=== PATIENT | male | born 1945 | race Caucasian/White ===

== ENCOUNTER → 2016-09-05 | Outpatient (REF) | payer BC ==
[~2016-09-05] MED LIST: AMLO5CAP PO; ASPI325T PO; ASPI81TA85 PO; BUSP10TA PO; CRES40TA PO; HYDR12.55 PO; LOPR50TA PO; NITR4TASL SL; PRAV40TA2 PO; TOPR50TA PO; TRAN4TAB4 PO; TYLE325T5 PO; VITA-112 PO; VITA500C10 PO; XANA0.25 PO; XANA0.5T PO; XARE20TA PO
== END | disposition home or self-care (01) ==
LOC: M SFHCPLAZ 17:18
PROVIDERS: ATTEND Dermatology
DX: C44.529 Squamous cell carcinoma of skin of other part of trunk (principal)

== ENCOUNTER → 2017-02-04 | Outpatient (REF) | payer BC ==
[~2017-02-04] MED LIST changes: -TRAN4TAB4 PO; +TRAN4TAB8 PO
== END ==
LOC: M LAB REF 12:43
PROVIDERS: ATTEND Dermatology
DX: L85.9 Epidermal thickening, unspecified (principal)

== ENCOUNTER → 2017-06-05 | Outpatient (REF) | payer BC | LOC: M LAB REF 17:46 | PROVIDERS: ATTEND Internal Medicine | DX: Z11.59 Encounter for screening for other viral diseases (principal) ==

== ENCOUNTER → 2017-12-17 | Outpatient (REF) | payer BC | LOC: M LAB REF 12-18 12:10 | DX: D36.11 Benign neoplasm of peripheral nerves and autonomic nervous system of face, head, and neck (principal) | CPT/HCPCS: 88305 ==

== ENCOUNTER → 2019-05-05 | Outpatient (REF) | payer BC ==
[~2019-05-05] MED LIST changes: +ASPI-1 PO; -ASPI325T PO; +TRAN1TAB49 PO; -TRAN4TAB8 PO
== END ==
LOC: M SFHCPLAZ 19:00
PROVIDERS: ATTEND Dermatology
DX: D49.2 Neoplasm of unspecified behavior of bone, soft tissue, and skin (principal)

== ENCOUNTER → 2019-07-23 | Outpatient (CLI) | payer BC ==
--- NOTE | 2019-07-27 19:11 | SLEEPHOME ---
DATE OF PROCEDURE: 07/23/2019 ORDERED BY: Dr. Middleton Diagnostic home sleep testing was performed due to concern for the obstructive sleep apnea syndrome in this patient with a history of snoring. For testing a nocturnal T3 respiratory monitoring device was used. Continuous record was made of pulse, oxygen saturation, airflow, chest, abdominal strain and body position. 11 hours and 59 minutes of data were reviewed. There were 6 hours and 6 minutes marked as time in bed. During the interval marked time in bed, there were 111 respiratory events identified of 10 seconds in duration or greater for a respiratory event index of 18.1. Events were obstructive in nature. Baseline pulse rate 77 beats per minute, pulse rate ranged 56-97. Baseline saturation 90%. Saturations fell to as low as 83% and testing was performed in both the supine and nonsupine positions. IMPRESSION: Abnormal home sleep testing with repetitive respiratory events and oxygen desaturations to 83% with a respiratory event index of 18.1 is consistent with the obstructive sleep apnea syndrome. RECOMMENDATION: The patient should be encouraged to undergo a formal sleep evaluation.
== END ==
LOC: M SLEEP HO 10:07
PROVIDERS: ATTEND Internal Medicine Cardiovascular Disease
DX: R06.83 Snoring (principal)

== ENCOUNTER → 2019-08-25 | Outpatient (CLI) | payer BC ==
--- NOTE | 2019-08-27 16:11 | SLEEPCENT ---
DATE OF PROCEDURE: 08/25/2019 ORDERED BY: MIMI Fuentes Nocturnal polysomnography was performed for titration of pressure therapy in this patient with obstructive sleep apnea syndrome based on clinical evaluation confirmed by home testing revealing respiratory event index of 18.1. For testing the patient was fit with a ResMed Quattro Mirage mask of medium size; 4 cm of water pressure were applied to the circuit and the lights were extinguished. 6 hours and 4 minutes of data were reviewed. There were 221 minutes of sleep identified. Sleep latency was normal at 31 minutes. Rapid eye movement (REM) latency was short of 85.5 minutes. Sleep architecture was good with 2 REM cycles. Overall sleep efficiency was 61.6%. The electrocardiogram showed atrial fibrillation with a controlled ventricular response rate of 60 beats per minute. Electroencephalogram (EEG) showed reasonably normal waveforms for awake and sleep. Respiratory events were fully palliated CPAP at a pressure of +12 and remaining measures of sleep physiology were normal. IMPRESSION: Obstructive sleep apnea syndrome (G47.33). RECOMMENDATIONS: Nightly use of pressure therapy 12 cm of water.
== END ==
LOC: M SLEEP 19:26
PROVIDERS: ATTEND Nurse Practitioner Family
DX: G47.33 Obstructive sleep apnea (adult) (pediatric) (principal)

== ENCOUNTER → 2019-09-16 | Outpatient (CLI) | payer BC ==
--- NOTE | 2019-09-20 23:54 | SLEEPCENT ---
DATE OF PROCEDURE: 09/16/2019 ORDERED BY: MIMI Fuentes Nocturnal polysomnography was performed for assessment of sleep physiology. 6 hours and 27 minutes of data were reviewed. There were 291.5 minutes of sleep identified. Sleep latency was normal at 20.5 minutes. Rapid eye movement (REM) latency was short at 52 minutes. Sleep architecture showed severe fragmentation. Overall sleep efficiency was good at 76.3%. There were four REM cycles noted. EKG showed atrial fibrillation with a controlled ventricular response rate of 85 beats per minute. Rate ranged 70-100. EEG showed reasonably normal waveforms for awake and sleep. There were 116 respiratory events identified of 10 seconds in duration or greater for an apnea-hypopnea index of 23.9. The events were obstructive, not exclusive to sleep stage nor body posture. Arousals from respiratory events occurred 14 times per hour. Oxygen desaturations were seen into the 80s. There was also some activity noted in the limb EMG leads, only one train of 30 events and limb movement arousal index was 5.6. IMPRESSION: Moderate to severe obstructive sleep apnea syndrome (G47.33). Apnea-hypopnea index 23.9. RECOMMENDATIONS: The patient should be encouraged to return to the sleep disorder center for pressure therapy. In the interim alcohol and sedative avoidance should be practiced and caution exercised during the operation of motor vehicles.
== END ==
LOC: M SLEEP 19:31
PROVIDERS: ATTEND Nurse Practitioner Family
DX: G47.33 Obstructive sleep apnea (adult) (pediatric) (principal)

== ENCOUNTER → 2019-11-05 | Outpatient (REF) | payer BC | LOC: M LAB REF 17:16 | PROVIDERS: ATTEND Dermatology | DX: L92.9 Granulomatous disorder of the skin and subcutaneous tissue, unspecified (principal) ==

== ENCOUNTER → 2020-03-04 | Outpatient (CLI) | payer BC ==
[2020-03-04 10:13] LABS: HEMATOCRIT 44.1 % (42.0-52.0); HEMOGLOBIN 14.5 g/dl (13.5-17.5); MEAN CORPUSCULAR HEMOGLOBIN 31.5 pg (27.0-33.0); MEAN CORPUSCULAR HGB CONC 32.9 g/dl (32.0-36.5); MEAN CORPUSCULAR VOLUME 95.9 fl (80.0-96.0); PLATELET COUNT, AUTOMATED 277 10^3/uL (150-450); WHITE BLOOD COUNT 11.4 10^3/uL (4.0-10.0)
[2020-03-04 10:52] LABS: BLOOD UREA NITROGEN 15 MG/DL (7-18); CALCIUM LEVEL 8.6 MG/DL (8.8-10.2); CARBON DIOXIDE LEVEL 29 MEQ/L (21-32); CHLORIDE LEVEL 109 MEQ/L (98-107); CREATININE FOR GFR 1.12 MG/DL (0.70-1.30); GLOMERULAR FILTRATION RATE > 60.0 (>42); GLUCOSE, FASTING 83 MG/DL (70-100); POTASSIUM SERUM 4.2 MEQ/L (3.5-5.1); SODIUM LEVEL 142 MEQ/L (136-145)
== END ==
LOC: M LAB 09:38
PROVIDERS: ATTEND Nurse Practitioner Family
DX: I48.91 Unspecified atrial fibrillation (principal)

== ENCOUNTER → 2020-03-05 | Outpatient (CLI) | payer BC | LOC: M LABSMTC 10:55 | PROVIDERS: ATTEND Nurse Practitioner Family | DX: Z11.59 Encounter for screening for other viral diseases (principal); Z20.828 Contact with and (suspected) exposure to other viral communicable diseases | CPT/HCPCS: C9803; U0003 ==

== ENCOUNTER → 2020-04-18 | Outpatient (CLI) | payer BC | LOC: M LABSMTC 09:27 | PROVIDERS: ATTEND Anesthesiology | DX: Z11.59 Encounter for screening for other viral diseases (principal) ==

== ENCOUNTER 2020-04-20 14:22 | Day surgery (SDC) | payer BC ==
[~2020-04-20] VITALS: Ht 180.3 cm; Wt 92.1 kg
[~2020-04-20 14:22] MED LIST changes: +LR 1,000 ML IV ONE
[2020-04-20] MEDS ORDERED: MIDAZOLAM INJ 2MG/2ML VIAL (J2250 PER 1MG) As Ordered ONE (15:39)
[2020-04-20] MEDS ORDERED: propofoL 200 MG/20 ML VIAL As Ordered ONE (15:40)
[2020-04-20] MEDS ORDERED: fentaNYL 100 MCG/2 ML INJECTION (J3010) As Ordered ONE (15:40)
[2020-04-20] MEDS ORDERED: CETACAINE SPRAY 5GM As Ordered ONE (15:44)
[2020-04-20] MEDS ORDERED: LIDOCAINE VISCOUS 2% SOLN 15ML UDC As Ordered ONE (15:44)
[2020-04-20 17:15] VITALS: BP 121/65
--- NOTE | 2020-04-26 21:03 | T-ECHO ---
DATE OF PROCEDURE: 04/20/2020 PREPROCEDURE DIAGNOSIS: 45-day post Watchman transesophageal echocardiogram (OZZY). POSTPROCEDURE DIAGNOSIS: 45-day post Watchman transesophageal echocardiogram (OZZY). FINDINGS: 45-day post Watchman OZZY. See conclusions below for additional findings. PROCEDURE PERFORMED: Transesophageal echocardiogram. PROCEDURE PERFORMED BY: Alden Middleton M.D. DATA SYSTEMS ANALYST: None. IV SEDATION: Propofol IV per SUPERVISOR REMELT. COMPLICATIONS: None. DESCRIPTION OF PROCEDURE: Rhythm appeared to be atrial fibrillation. Patient received Cetacaine spray to the back of the pharynx. Following adequate amounts of Propofol intravenous (IV) administered by the SUPERVISOR REMELT, esophageal intubation was accomplished by Dr. Middleton without difficulty using a High three- dimensional transesophageal echocardiogram probe. The left atrium appeared to be enlarged. The atrial septum was intact anatomically and by color flow Doppler. Some small amounts of type 1 spontaneous echo contrast were seen in the left atrium. A Watchman left atrial closure device was well-seated in the left atrial appendage with no visible gap. No thrombus seen on the Watchman device. The left ventricle appeared normal in size and systolic function and without regional wall motion abnormalities. Normal LV systolic function. LVEF 65% by visual estimate. Aortic valve was 3-cuspid with moderate focal thickening and focal calcific deposits especially along the free margins. No fusion of the aortic cusps. No aortic stenosis or regurgitation. Mitral leaflets appeared normal. No mitral valve prolapse. No frail segments. Mild-moderate mitral valve regurgitation was present. Mild tricuspid valve regurgitation was present. Structurally normal appearing tricuspid leaflets. Pulmonic valve appeared normal. Very mild pulmonic regurgitation. No pericardial effusion. Right ventricle appeared normal in size and systolic function. Transgastric views were moderately technically difficult. Distal aortic arch and descending thoracic aorta showed mostly mild atherosclerosis with some regions of patchy moderate atheroma. CONCLUSIONS: 1. Satisfactory placement of a Watchman left atrial appendage closure device without visible gap and without thrombus. 2. No atrial septal defect. 3. Normal left ventricle size and systolic function. Left ventricular ejection fraction (LVEF) by visual estimate. 4. Normal appearing mitral leaflets with mild-moderate mitral regurgitation. 5. Moderate aortic valve sclerosis without stenosis or regurgitation of a 3- cuspid aortic valve. 6. Areas of up to moderate atheroma patchy throughout the distal aortic arch and descending thoracic aorta with mostly mild atherosclerosis. MTDD
== END 2020-04-20 17:45 | disposition home or self-care (01) ==
LOC: M SDC 14:22
PROVIDERS: ATTEND Internal Medicine Cardiovascular Disease
DX: I48.19 Other persistent atrial fibrillation (principal); F41.0 Panic disorder [episodic paroxysmal anxiety]; Z79.82 Long term (current) use of aspirin; Z79.899 Other long term (current) drug therapy; I25.2 Old myocardial infarction; G47.33 Obstructive sleep apnea (adult) (pediatric); Z87.891 Personal history of nicotine dependence; I10 Essential (primary) hypertension; E78.5 Hyperlipidemia, unspecified; Z79.01 Long term (current) use of anticoagulants; N40.0 Benign prostatic hyperplasia without lower urinary tract symptoms
CPT/HCPCS: 93312; 93320; 93325; J2250; J3010

== ENCOUNTER → 2020-06-14 | Outpatient (CLI) | payer BC ==
[~2020-06-14] MED LIST changes: -LR 1,000 ML IV ONE
--- NOTE | 2020-06-15 12:59 | REP ---
INDICATION: FOLLOW UP PULMONARY NODULE COMPARISON: 08/04/2013 TECHNIQUE: Axial noncontrast images from the thoracic inlet to the upper abdomen with coronal and sagittal reformations. This CT examination was performed using the following dose reduction techniques: Automated exposure control, adjustment of mA and/or kv according to the patient's size, and use of iterative reconstruction technique. FINDINGS: The lung hussein are well aerated and demonstrate moderate emphysematous changes with scattered bullae as well as moderate amounts of scattered subpleural fibrosis along with mild bronchiectasis. Few scattered nodules identified on prior examination remain stable. A noncalcified nodule in the left lower lobe measuring roughly 7 mm appears to be increased from prior examinations and may warrant further investigation. No further new consolidation or suspicious nodule/mass identified. No pleural effusion. No pneumothorax. Mediastinum demonstrates atherosclerotic changes to the thoracic aorta and coronary arteries without evidence for mitral valve repair. Mediastinal and hilar adenopathy cannot be excluded. No cardiomegaly or pericardial effusion noted. Surrounding musculoskeletal structures are intact. Limited upper abdomen demonstrates normal bilateral adrenal glands. IMPRESSION: 1. Nonacute findings as described above including emphysematous changes, subpleural fibrosis, and bronchiectasis. 2. A 7 mm noncalcified nodule in the left lower lobe appears to be slightly increased when compared with prior examinations. Consider 6 month follow-up and/or PET-CT. <Electronically signed by Magdy Jarvis > 06/15/20 [id number]
== END ==
LOC: M RAD 16:14
PROVIDERS: ATTEND Internal Medicine
DX: R91.1 Solitary pulmonary nodule (principal)

== ENCOUNTER → 2020-12-22 | Outpatient (CLI) | payer MEDICARE ==
[~2020-12-22] MED LIST changes: -TRAN1TAB49 PO; +TRAN1TAB56 PO
--- NOTE | 2020-12-22 08:25 | REP ---
INDICATION: PULMONARY NODULE. COMPARISON: Comparison is made with multiple prior chest CT studies the most recent of which is from 14 June 2020. The most remote available chest CT is 03 April 2010.. TECHNIQUE: Helical scanning is acquired. 3 mm axial images are generated. Coronal and sagittal MPR and coronal MIP images are generated. FINDINGS: There is a 7 mm noncalcified nodule in the left lower lobe which is very gradually increased in size over the scanning interval. By my measurement, it was 7 mm in May of 2020 and has not changed in that short interval. However, it measured 5 mm in 2012 and 4 mm in 2009.a there are multiple other subcentimeter noncalcified pulmonary nodules present bilaterally which are unchanged over the interval dating back to 2009.aaaaaaaaaaa. There is some subpleural emphysematous change and interstitial fibrosis in the upper lobes bilaterally which has developed since the 2009 study but which is unchanged from most recent prior study. There is no evidence of pleural effusion. No new mass or infiltrate is seen. Vascular calcification is observed. Again noted is a left atrial appendage occlusion device. No new or enlarged mediastinal lymph node.0 no bony destructive lesion is seen.9 the visualized upper abdominal structures are unremarkable. IMPRESSION: 7 mm noncalcified left lower lobe nodule very gradually enlarged when compared with prior studies dating back to 2009. Unchanged from the most recent prior study of June 14, 2020 by my measurement. There are multiple other stable noncalcified pulmonary nodules. Follow-up CT study suggested in 6-9 months. <Electronically signed by Lopez Hanley > 12/22/20 [id number]
== END ==
LOC: M RAD 07:10
PROVIDERS: ATTEND Internal Medicine
DX: R91.1 Solitary pulmonary nodule (principal)

== ENCOUNTER 2021-01-26 08:01 | Emergency (ER) | payer MEDICARE ==
[~2021-01-26] VITALS: Ht 180.3 cm; Wt 88.9 kg
[2021-01-26 08:02] VITALS: BP 153/83
[2021-01-26] MEDS ORDERED: PENI500T (08:13)
[2021-01-26] MEDS ORDERED: LOSA25TA14 (08:13)
[2021-01-26] MEDS ORDERED: ASPI-161 PO (08:13)
[2021-01-26] MEDS ORDERED: INDA125TA PO (08:13)
[2021-01-26] MEDS ORDERED: TAMS1CAP17 (08:13)
[2021-01-26] MEDS ORDERED: COLC1CAP (08:13)
[2021-01-26] MEDS ORDERED: ALPR0.25 (08:13)
[2021-01-26 09:09] LABS: BASO % 0.1 % (0.0-1.0); EOS # 0.1 10^3/uL (0.0-0.5); EOS % 0.4 % (0.0-3.0); HEMOGLOBIN 14.7 g/dl (13.5-17.5); LYMPH # 2.5 10^3/uL (1.5-5.0); LYMPH % 16.9 % (24.0-44.0); MEAN CORPUSCULAR HEMOGLOBIN 31.4 pg (27.0-33.0); MEAN CORPUSCULAR HGB CONC 33.4 g/dl (32.0-36.5); MONO # 1.3 10^3/uL (0.0-0.8); MONO % 8.6 % (2.0-8.0); NEUTROPHILS # 10.6 10^3/uL (1.5-8.5); NEUTROPHILS % 73.3 % (36.0-66.0); PLATELET COUNT, AUTOMATED 243 10^3/uL (150-450); RED BLOOD COUNT 4.68 10^6/uL (4.30-6.10); WHITE BLOOD COUNT 14.5 10^3/uL (4.0-10.0)
[2021-01-26 09:38] LABS: ALBUMIN 3.6 GM/DL (3.2-5.2); ALT/SGPT 34 U/L (12-78); BILIRUBIN,DIRECT 0.3 MG/DL (0.0-0.2); BILIRUBIN,TOTAL 0.8 MG/DL (0.2-1.0); BLOOD UREA NITROGEN 11 MG/DL (7-18); CALCIUM LEVEL 8.7 MG/DL (8.8-10.2); CARBON DIOXIDE LEVEL 27 MEQ/L (21-32); CHLORIDE LEVEL 106 MEQ/L (98-107); CPK CREATINE PHOSPHOKINASE 131 U/L (39-308); CREATININE FOR GFR 0.93 MG/DL (0.70-1.30); GLOMERULAR FILTRATION RATE > 60.0 (>42); GLUCOSE, FASTING 102 MG/DL (70-100); LIPASE 74 U/L (73-393); MB/CK RELATIVE INDEX 3.82 (< OR =4); POTASSIUM SERUM 3.7 MEQ/L (3.5-5.1); SODIUM LEVEL 138 MEQ/L (136-145); TOTAL PROTEIN 6.8 GM/DL (6.4-8.2); TROPONIN I < 0.02 NG/ML (< 0.10)
[2021-01-26] MEDS ORDERED: ISOVUE-370 76% 100ML VIAL As Ordered ONE (09:39)
[2021-01-26] MEDS ORDERED: KETOROLAC 30 MG/ML 1ML VIAL IV ONE (09:55)
--- NOTE | 2021-01-26 10:05 | REP ---
INDICATION: LLQ pain. COMPARISON: None. TECHNIQUE: Standard helical technique after the intravenous administration of 100 cc Isovue 370. No oral bowel preparatory contrast was administered prior to the exam. FINDINGS: The lung bases are unchanged compared to the chest CT of 12/22/2020. There is fatty infiltration surrounding a segment of descending colon seen with multiple diverticula. There is a trace amount of free pelvic fluid. There is no free air. The liver, gallbladder, spleen, pancreas, adrenal glands, and left kidney are within normal limits. Seen in the right kidney there is a small round 1.5 cm sized low-density structure which has water density Hounsfield unit readings. The abdominal aorta and para-regions are within normal limits. There is no evidence of a mass or adenopathy. 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 Chronic changes are seen involving spine, hips, sacroiliac joints. IMPRESSION: 1. Descending colon diverticulitis. 2. Trace amount of free pelvic fluid. 3. Bosniak class 1 simple right renal cyst. 4. Other findings as described above. <Electronically signed by Guru High > 01/26/21 [id number]
[2021-01-26] MEDS ORDERED: metroNIDAZOLE 500 MG in IV 1 EA IV ONE (10:35)
[2021-01-26] MEDS ORDERED: CIPROFLOXACIN 400 MG in IV 1 EA IV ONE (11:00)
[2021-01-26] MEDS ORDERED: METR-265 PO (12:56)
[2021-01-26] MEDS ORDERED: KETO10TAB PO (12:56)
[2021-01-26] MEDS ORDERED: ONDA4TAB6 PO (12:56)
[2021-01-26] MEDS ORDERED: CIPR500T39 PO (12:56)
--- NOTE | 2021-01-26 19:51 | ECGEPIP ---
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
== END 2021-01-26 13:57 | disposition home or self-care (01) ==
LOC: M ED 08:01
DX: K57.32 Diverticulitis of large intestine without perforation or abscess without bleeding (principal); N28.1 Cyst of kidney, acquired; I48.91 Unspecified atrial fibrillation; I25.2 Old myocardial infarction; E78.5 Hyperlipidemia, unspecified; Z87.891 Personal history of nicotine dependence; Z79.899 Other long term (current) drug therapy
CPT/HCPCS: 74177; 80048; 80076; 81001; 82550; 82553; 83605; 83690; 84484; 85025; 93005; 93041; 96365; 96366; 96367; 96375; 99285; J0744; J1885; Q9967

== ENCOUNTER → 2021-04-08 | Outpatient (CLI) | payer MEDICARE ==
[~2021-04-08] MED LIST changes: +ALPR0.25; +ASPI-161 PO; +CIPR500T39 PO; +COLC1CAP; +INDA125TA PO; +KETO10TAB PO; +LOSA25TA14; +METR-265 PO; +ONDA4TAB6 PO; +PENI500T; +TAMS1CAP17
[2021-04-08 10:23] LABS: CHOLESTEROL RISK RATIO 1.75 (<5)
== END ==
LOC: M LAB 09:22
PROVIDERS: ATTEND Internal Medicine Cardiovascular Disease
DX: E78.00 Pure hypercholesterolemia, unspecified (principal)

== ENCOUNTER → 2021-05-11 | Outpatient (CLI) | payer MEDICARE ==
[~2021-05-11] MED LIST changes: -ALPR0.25; +ALPR0.25 PO; -COLC1CAP; +COLC1CAP PO; +D31000TA2 PO; -LOSA25TA14; +LOSA25TA14 PO; +POTA8TAB8 PO; -TAMS1CAP17; +TAMS1CAP17 PO; +VITA500C24 PO
== END ==
LOC: M LABSMTC 09:48
PROVIDERS: ATTEND Anesthesiology
DX: Z01.812 Encounter for preprocedural laboratory examination (principal); Z20.822 Contact with and (suspected) exposure to COVID-19
CPT/HCPCS: 17000; 17003; G0463; U0003

== ENCOUNTER 2021-05-15 12:23 | Day surgery (SDC) | payer MEDICARE ==
[~2021-05-15] VITALS: Ht 180.3 cm; Wt 85.7 kg
[~2021-05-15 12:23] MED LIST changes: +LIDOCAINE 1% MDV 20ML VIAL SQ PRN; +LR 1,000 ML IV ONE
[2021-05-15] MEDS ORDERED: MIDAZOLAM INJ 2MG/2ML VIAL (J2250 PER 1MG) As Ordered ONE (12:59)
[2021-05-15] MEDS ORDERED: fentaNYL 100 MCG/2 ML INJECTION (J3010) As Ordered ONE (12:59)
[2021-05-15] MEDS ORDERED: LIDOCAINE 2% 100MG/5ML SDV (FOR ANES.) As Ordered ONE (13:00)
[2021-05-15] MEDS ORDERED: propofoL 200 MG/20 ML VIAL As Ordered ONE (13:00)
[2021-05-15] MEDS ORDERED: CETACAINE SPRAY 5GM As Ordered ONE (14:15)
[2021-05-15] MEDS ORDERED: LIDOCAINE VISCOUS 2% SOLN 15ML UDC As Ordered ONE (14:15)
[2021-05-15 15:15] VITALS: BP 135/88
--- NOTE | 2021-05-15 17:17 | ECHO ---
ECHOCARDIOGRAM DATE OF PROCEDURE: 05/15/2021 PREPROCEDURE DIAGNOSIS: One year status post Watchman transesophageal echocardiogram (OZZY). POSTPROCEDURE DIAGNOSIS: One year status post Watchman transesophageal echocardiogram (OZZY). FINDINGS: One year status post Watchman transesophageal echocardiogram (OZZY). PROCEDURE PERFORMED: OZZY (transesophageal echocardiogram). PROCEDURE PERFORMED BY: Dr. Alden Middleton FLAKING ROLL OPERATOR: None. ANESTHESIA: Monitored anesthetic care (propofol) was administered by DIGITAL ENGINEER. COMPLICATIONS: None. Patient received topical anesthetic to the back of the pharynx. He received propofol intravenous (IV) as administered by the DIGITAL ENGINEER for IV sedation. Patient tolerated the procedure well without any immediate complications. Rhythm was atrial fibrillation. Esophageal intubation was accomplished without difficulty using a 3D transesophageal echocardiogram probe. This was performed by Dr. Middleton. The left ventricle appeared normal in size and systolic function without regional wall motion abnormalities. Normal left ventricular (LV) systolic function, left ventricular ejection fraction (LVEF) 60%-65% by visual estimate. Right ventricle appeared normal in size and systolic function. No masses or thrombi were seen in the right atrium. Right atrium appeared normal in size. The left atrium appeared enlarged. Atrial septum was intact anatomically and by color flow Doppler. A Watchman left atrial appendage closure device was present and well seated in the left atrial appendage and was without gaps or color flow, and no thrombus was seen on the Watchman device. Aortic valve was 3-cuspid and was structurally and functionally normal. Mitral leaflets appeared structurally normal. Mild mitral regurgitation was present and within physiologic limits. No tricuspid regurgitation. Pulmonic valve appeared normal. Mild pulmonic regurgitation was present. No pericardial effusion. Distal aortic arch and descending thoracic aorta showed mild atherosclerotic plaque. CONCLUSIONS: 1. Normal appearance, well seated Watchman left atrial appendage closure device in situ without thrombus. 2. Visual appearance of left atrial dilatation. 3. Normal left ventricle size and systolic function. LVEF 60%-65% 4. Mild atherosclerotic plaque/atheroma involving the distal aortic arch and descending thoracic aorta.
--- NOTE | 2021-05-16 07:12 | T-ECHO ---
DATE OF PROCEDURE: 05/15/2021 PREPROCEDURE DIAGNOSIS: One year status post Watchman transesophageal echocardiogram (OZZY). POSTPROCEDURE DIAGNOSIS: One year status post Watchman transesophageal echocardiogram (OZZY). FINDINGS: One year status post Watchman transesophageal echocardiogram (OZZY). PROCEDURE PERFORMED: OZZY (transesophageal echocardiogram). PROCEDURE PERFORMED BY: Dr. Alden Middleton TOOLROOM KEEPER: None. ANESTHESIA: Monitored anesthetic care (propofol) was administered by MATTRESS SPRING ENCASER. COMPLICATIONS: None. Patient received topical anesthetic to the back of the pharynx. He received propofol intravenous (IV) as administered by the MATTRESS SPRING ENCASER for IV sedation. Patient tolerated the procedure well without any immediate complications. Rhythm was atrial fibrillation. Esophageal intubation was accomplished without difficulty using a 3D transesophageal echocardiogram probe. This was performed by Dr. Middleton. The left ventricle appeared normal in size and systolic function without regional wall motion abnormalities. Normal left ventricular (LV) systolic function, left ventricular ejection fraction (LVEF) 60%-65% by visual estimate. Right ventricle appeared normal in size and systolic function. No masses or thrombi were seen in the right atrium. Right atrium appeared normal in size. The left atrium appeared enlarged. Atrial septum was intact anatomically and by color flow Doppler. A Watchman left atrial appendage closure device was present and well seated in the left atrial appendage and was without gaps or color flow, and no thrombus was seen on the Watchman device. Aortic valve was 3-cuspid and was structurally and functionally normal. Mitral leaflets appeared structurally normal. Mild mitral regurgitation was present and within physiologic limits. No tricuspid regurgitation. Pulmonic valve appeared normal. Mild pulmonic regurgitation was present. No pericardial effusion. Distal aortic arch and descending thoracic aorta showed mild atherosclerotic plaque. CONCLUSIONS: 1. Normal appearance, well seated Watchman left atrial appendage closure device in situ without thrombus. 2. Visual appearance of left atrial dilatation. 3. Normal left ventricle size and systolic function. LVEF 60%-65% 4. Mild atherosclerotic plaque/atheroma involving the distal aortic arch and descending thoracic aorta. [facility]
== END 2021-05-15 15:25 | disposition home or self-care (01) ==
LOC: M SDC 12:23
PROVIDERS: ATTEND Internal Medicine Cardiovascular Disease
DX: I48.19 Other persistent atrial fibrillation (principal); I25.118 Atherosclerotic heart disease of native coronary artery with other forms of angina pectoris; I49.3 Ventricular premature depolarization; I10 Essential (primary) hypertension; E78.5 Hyperlipidemia, unspecified; F41.9 Anxiety disorder, unspecified; G47.33 Obstructive sleep apnea (adult) (pediatric); Z79.899 Other long term (current) drug therapy; E66.3 Overweight
CPT/HCPCS: 93312; 93320; 93325; J3010

== ENCOUNTER → 2021-06-29 | Outpatient (CLI) | payer MEDICARE ==
[~2021-06-29] MED LIST changes: -LIDOCAINE 1% MDV 20ML VIAL SQ PRN; -LR 1,000 ML IV ONE
== END ==
LOC: M LABSMTC 11:18
PROVIDERS: ATTEND Anesthesiology
DX: Z01.812 Encounter for preprocedural laboratory examination (principal); Z20.822 Contact with and (suspected) exposure to COVID-19

== ENCOUNTER 2021-07-04 08:11 | Day surgery (SDC) | payer MEDICARE ==
[~2021-07-04] VITALS: Ht 182.9 cm; Wt 85.3 kg
[~2021-07-04 08:11] MED LIST changes: +NS 1,000 ML IV ONE
--- OUTSIDE RECORDS SUMMARY | 2021-07-04 08:19 | CCD | Continuity of Care Document ---
Author Author Leonard Leung MD Organization Unknown Address [address] [facility] [address] [place] [address] Phone [phone] Care Team Providers Care Conveyor Weigher Operator Name Role Phone Pramod Leung JR, MD AUTM Unavailable [facility] D[facility]at[facility] AUTM [phone] Problems Active Problems Provider Date Benign essential hypertension Pramod Leung MD Onset: 0 03/17/2011 Pure hypercholesterolemia Pramod Leung MD Onset: 03/17 Chronic lymphoid leukemia, disease Pramod Leung MD Ons et: 03/17/2011 Disorder of lung Pramod Leung MD Onset: 03/17/2011 Anxiety state Pramod Leung MD Onset: 03/17/2011 Essential hypertension Pramod Leung MD Onset: 10/23/19 16 Social History Type Date Description Comments Sex Unknown ETOH Use Consumes 1 beer per day Tobacco Use Start: Unknown End: Unknown Patient is a former smoker quit October 2010. Allergies and adverse reactions Description No Known Drug Allergies Medications Active Medications SIG Qnty Indications Ordering Provide r Date Colchicine 0.6mg Capsules 1 by mouth once a day 60asmita Leung MD 12/12/[address] 1 by mouth every day Pramod Leung MD 06/09/2020 Rosuvastatin Calcium 40mg Tablets take 1 tablet by mouth every day 90saroj Leung MD 03/02/2019 Tamsulosin HCL 0.4mg Capsules Take 1 Capsule By Mouth Every Day 1/2 Hour After The Same Meal 90asmita Leung MD 05/11/2018 Indapamide 1.25mg Tablets Take One Tablet By Mouth Every Day 90saroj Leung MD 017 Nitrostat 0.4mg Tablets Sub one under tongue every 5 minutes x 3 as needed for chest discomfort 25tabs Pramod Leung MD 04/15/2014 Nasonex 50mcg/Act Suspension 1 spray each nostril bid prn 1units Radhika Gonzalez, MIMI 06/10/2013 Vitamin D-1000 1000Unit Tablets 1 by mouth every day Pramod Leung MD 02/25/2011 Vitamin C Plus 500mg Tablets qd Pramod Leung MD 02/25/2011 Buspirone HCL 10mg Tablets take one tablet by mouth three times a day 270tabs Pramod Leung MD 10/18/2010 Xanax 0.25mg Tablets 1 tab four times a day as needed anxiety 120tabs Pramod Leung MD 03/1996 Losartan Potassium 25mg Tablets 1 by mouth every day Pramod Leung MD Potassium CL. ER. 8Meq 1 Tablet Per Day Unknow n Medications Administered in Office Medication SIG Qnty Indications Ordering Provider Date Covid-19 vaccine, Unspecified Inj ection Unknown 10/10/2020 Covid-19 vaccine, Unspecified Inj ection Unknown 09/12/2020 Immunization Adminstration,1 Vaccine/Tox oid Injection Pramod Leung MD 2018 Immunization Adminstration,1 Vaccine/Tox oid Injection Pramod Leung MD 2017 Immunizations CPT Code Status Date Vaccine Lot # [id number] Given 05/17/2021 Influenza,Unspecified [id number] Given 05/21/2019 Influenza Vaccin e Quadrivalent Preser/Antibiotic Free Im Use [id number] 18678 Given 08/09/2018 Shingrix [id number] Given 06/02/2018 Influenza Virus Vaccine, Quadrivalent ([id number]), Derived From 2 Given 06/05/2017 Influenza Vaccin e Quadrivalent Preser/Antibiotic Free Im Use [id number] 41006 Given 10/18/2014 Prevnar 13 [id number] [id number] Given 08/28/2012 Zoster Vaccine 75625 Given 04/17/2010 Pneumovax 23 Vital Signs Date Vital Result Comment 06/18/2021 8:25am BP Systolic 128 mmHg BP Diastolic 72 mmHg Heart Rate 82 /min Height 70 inches 5'10" Weight 196.00 lb O2 % BldC Oximetry 96 % RM Air BMI (Body Mass Index) 28.1 kg/m2 12/12/2020 8:11am BP Systolic 126 mmHg BP Diastolic 76 mmHg Heart Rate 68 /min Height 70 inches 5'10" Weight 204.00 lb BMI (Body Mass Index) 29.3 kg/m2 Results Test Acquired Date Facility Test Result H/L Range Note Complete Blood Count 2021 [facility] S[employer] Business Intelligence Consultant: Dr Pramod [place] [address] [phone] WBC 7.3 x10*3/UL 4.1 - 10.9 RBC 4.53 x10*6/UL 4.20 - 6.30 Hemoglobin 14.8 g/dL 12.0 - 18.0 Hematocrit 42.0 % 37.0 - 51.0 MCV 92.6 fL 80.0 - 97.0 MCH 32.7 pg High 26.0 - 32.0 MCHC 35.3 g/dL 31.0 - 38.0 RDW 13.7 % 11.6 - 13.7 PLT 233 x10*3/UL 140 - 440 MPV 7.5 FL Low 7.8 - 11.0 Lymph % 41.3 % 10.0 - 58.5 Mid % 8.7 % 1.7 - 9.3 Neut % 50.0 % 37.0 - 92.0 Lymph # 3.0 x10*3/UL 0.6 - 4.1 Mid # 0.7 x10*3/UL High 0.1 - 0.6 Neut # 3.6 x10*3/UL 2.0 - 7.8 Comprehensive Chem Profile 2021 [facility] [employer] Business Intelligence Consultant: Dr Pramod [place] [address] [phone] Glucose 104 mg/dL High 74 - 99 1 BUN 14 mg/dL 7 - 18 Creatinine 1.1 mg/dL 0.6 - 1.3 Sodium 139 mEq/L 136 - 145 Potassium 4.5 mEq/L 3.5 - 5.1 Chloride 106 mEq/L 98 - 107 Carbon Dioxide 30 mEq/L 21 - 32 Calcium 9.0 mg/dL 8.5 - 10.1 Alk. Phosphatase 86 mg/dL 46 - 116 Total Bilirubin 0.5 mg/dL 0.2 - 1.0 Ast (Sgot) 20 U/L 15 - 37 Alt (SGPT) 38 U/L 12 - 78 Albumin 3.5 g/dL 3.4 - 5.0 Total Protein 6.8 g/dL 6.4 - 8.2 A/G Ratio 1.06 CALC 1.00 - 1.90 GFR >= 60 mL/min >60 GFR >= 60 mL/min >60 2 Lipid Profile 2021 [facility] [employer] Business Intelligence Consultant: [place] [address] [phone] Cholesterol 114 mg/dL Low 131 - 200 Triglycerides 32 mg/dL 30 - 150 HDL Cholesterol 61 mg/dL High 35 - 60 LDL (Calculated) 47 CALC Low 50 - 159 Laboratory test finding 2021 [facility] [employer] Business Intelligence Consultant: Dr Pramod Leung [place], [place] [id number] [phone] PSA <pending> Lipid Panel 04/08/2021 [facility] nter [address] [place] [address] [phone] Triglycerides Level 39 mg/dL Normal <150 Cholesterol Level 119 mg/dL Normal <200 HDL Cholesterol 68 mg/dL Normal >40 LDL Cholesterol 43 mg/dL Normal <100 Non-HDL-C 51 mg/dL Normal Cholesterol Risk Ratio 1.750 Normal <5 CBC With Differential 01/26/2021 [facility] [address] [place] [address] [phone] White Blood Count 14.5 10 High 4.0-10.0 Red Blood Count 4.68 10 Normal 4.30-6.10 Hemoglobin 14.7 g/dL Normal 13.5-17.5 Hematocrit 44.0 % Normal 42.0-52.0 Mean Corpuscular Volume 94.0 fl Normal 80.0-96.0 Mean Corpuscular Hemoglobin 31.4 pg Normal 27.0-33.0 Mean Corpuscular HGB Conc 33.4 g/dL Normal 32.0-36.5 Red Cell Distribution Width 12.6 % Normal 11.5-14.5 Platelet Count, Automated 243 10 Normal 150-450 Neutrophils % 73.3 % High 36.0-66.0 Lymph % 16.9 % Low 24.0-44.0 Taney % 8.6 % High 2.0-8.0 Eos % 0.4 % Normal 0.0-3.0 Baso % 0.1 % Normal 0.0-1.0 Immature Granulocyte % 0.7 % Normal 0-3.0 Nucleated Red Blood Cell % 0.0 % Normal 0-0 Neutrophils # 10.6 10 High 1.5-8.5 Lymph # 2.5 10 Normal 1.5-5.0 Taney # 1.3 10 High 0.0-0.8 Eos # 0.1 10 Normal 0.0-0.5 Baso # 0.0 10 Normal 0.0-0.2 Ua W/ Reflex To Culture 01/26/[address] [address] [phone] Appearance, Urine RFX CLEAR Normal Clear Color, Urine RFX YELLOW Normal Yellow PH,Urine RFX 7.0 units Normal 5.0-9.0 Specific [place] Ur Auto RFX 1.005 Normal 1.002-1.035 Protein, Urine Auto RFX NEGATIVE mg/dL Normal Negative Glucose, Urine (Ua) Auto RFX NEGATIVE mg/dL Normal Negative Ketone, Urine Auto RFX NEGATIVE mg/dL Normal Negative Urobilinogen, Urine Auto RFX 0.2 mg/dL Normal 0.0-2.0 Bilirubin, Urine Auto RFX NEGATIVE Normal Negative Nitrite, Urine Auto RFX NEGATIVE Normal Negative Leukocyte Esterase Ur Auto RFX NEGATIVE Normal Negative Blood, Urine Blood RFX NEGATIVE Normal Negative WBC, Urine Auto RFX 1 /HPF Normal 0-3 RBC, Urine Auto RFX 2 /HPF Normal 0-3 Bacteria, Urine Auto RFX NEGATIVE Normal Negative Squam Epithelial Cell Ur Aurfx 0 /HPF Normal 0-6 Hyaline Cast, Urine Auto RFX 0 /LPF Normal 0-1 Laboratory test finding 01/26/[address] [address] [phone] Lactic Acid Sepsis Protocol 1.2 mmol/L Normal 0.4- 2.0 3 Cardiac Marker Panel 01/26/2021 [facility] enter [address] [place] [address] [phone] CPK Creatine Phosphokinase 131 U/L Normal 39-30 8 CK-MB Value Mass 5.0 NG/ML High <3.6 MB/CK Relative Index 3.82 Normal < Or =4 4 Troponin I < 0.02 NG/ML Normal < 0.10 5 Liver Profile 01/26/2021 [facility] nter [address] [place] [address] [phone] Ast/Sgot 18 U/L Normal 7-37 Alt/SGPT 34 U/L Normal 12-78 Alkaline Phosphatase 97 U/L Normal 45-117 Bilirubin,Total 0.8 mg/dL Normal 0.2-1.0 Bilirubin,Direct 0.3 mg/dL High 0.0-0.2 Total Protein 6.8 GM/DL Normal 6.4-8.2 Albumin 3.6 GM/DL Normal 3.2-5.2 Albumin/Globulin Ratio 1.1 Normal Basic Metabolic Profile 01/26/2021 [facility] [address] [place] [address] [phone] Glucose, Fasting 102 mg/dL High 70-100 Blood Urea Nitrogen 11 mg/dL Normal 7-18 Creatinine For GFR 0.93 mg/dL Normal 0.70-1.30 Glomerular Filtration Rate > 60.0 Normal >42 6 Sodium Level 138 mEq/L Normal 136-145 Potassium Serum 3.7 mEq/L Normal 3.5-5.1 Chloride Level 106 mEq/L Normal 98-107 Carbon Dioxide Level 27 mEq/L Normal 21-32 Anion Gap 5 mEq/L Low 8-16 Calcium Level 8.7 mg/dL Low 8.8-10.2 Laboratory test finding 01/26/2021 [facility] [address] [place] [address] [phone] Lipase 74 U/L Normal 73-393 1 100-125 mg/dL PRE-DIABET ES/FASTING >126 mg/dL DIABETES/FASTING 2 CHRONIC KIDNEY DISEASE STAGI NG PER NKF STAGE I & II GFR >= 60 NORMAL TO MILDLY DECREASED STAGE III GFR 30-59 MODERATELY DECREASED STAGE IV GFR 15-29 SEVERELY DECREASED STAGE V GFR <15 VERY LITTLE GFR LEFT ESRD GFR <15 ON MEDICAL CODING INSTRUCTOR 3 Y/N query for Sepsis Lactate Rule: Y 4 DIAGNOSIS CRITERIA MMB ng/ml Relative Index (RI) NON-AMI < or = 5 N/A CHILDS ZONE > 5 < or = 4 AMI > 5 > 4 5 Troponin I Reference Interva l for Future Fleet LOCI: 99th Percentile= 0.00-0.045 ng/ml Risk Stratification: <= 0.10 ng/ml Decreased Risk for Adverse Clinical Events. 0.10-1.50 ng/ml Increased Risk for Adv erse Clinical Events. Evaluation of additional criterion and/or repeat testing in 2-6 hours is suggested to rule out myocardial damage. >= 1.50 ng/ml Indicative of Myocardial Injury. 6 Units are mL/min/1.73 m2 Chronic Kidney Disease Staging per NKF: Stage I & II GFR >=60 Normal to Mildly Decreased Stage III GFR 30-59 Moderately Decreased Stage IV GFR 15-29 Severely Decreased Stage V GFR <15 Very Little GFR Left ESRD GFR <15 on MEDICAL CODING INSTRUCTOR Procedures Date Code Description Status 02/14/2016 [id number] Colonoscopy Completed 09/13/2005 [id number] Colonoscopy Completed Medical Devices Description No Information Available Encounters Description No Information Available Assessments Description No Information Available Plan of Treatment No Information Available Functional Status Description No Information Available Mental Status Description No Information Available Referrals Description No Information Available
--- OUTSIDE RECORDS SUMMARY | 2021-07-04 08:19 | CCD | Continuity of Care Document ---
Author Author Lab Schedule, Leonard Melgar Organization Unknown Address [address] [place] [id number] Phone Unavailable Care Team Providers Care Microsoft Solutions Architect Name Role Phone Pramod Leung JR, MD AUTM Unavailable [facility] Dermatology AUTM [phone] Problems Active Problems Provider Date Benign essential [...] Day 1/2 Hour After The Same Meal purvi Leung MD 05/11/2018 Indapamide 1.25mg Tablets Take One Tablet By Mouth Every Day 90tazeynep Leung MD 017 Nitrostat 0.4mg Tablets Sub [...] CPT Code Status Date Vaccine Lot # [id number] Given 06/18/2021 Pneumovax 23 [id number] U-Flu Given 05/17/2021 Influenza,Unspecified 77986 Given 05/21/2019 Influenza Vaccin e Quadrivalent Preser/Antibiotic Free Im Use [id number] 88601 Given 08/09/2018 Shingrix 73935 Given 06/02/2018 Influenza Virus Vaccine, Quadrivalent (Cciiv4), Derived From 7 Given 06/05/2017 Influenza Vaccin e Quadrivalent Preser/Antibiotic Free Im Use [id number] 82550 Given 10/18/2014 Prevnar 13 [id number] 03691 Given 08/28/2012 Zoster Vaccine 45919 Given 04/17/2010 Pneumovax 23 Vital Signs Date [...] H/L Range Note Complete Blood Count 2021 [facility] Insurance Auditor: [place] [address] [phone] WBC 7.3 x10*3/UL 4.1 - 10.9 RBC [...] 2.0 - 7.8 Comprehensive Chem Profile 2021 [facility] Insurance Auditor: [place] [address] [phone] Glucose 104 mg/dL High 74 - 99 [...] 60 mL/min >60 2 Lipid Profile 2021 [facility] Insurance Auditor: [place] [address] [phone] Cholesterol 114 mg/dL Low 131 - 200 Triglycerides 32 mg/dL 30 - 150 HDL Cholesterol 61 mg/dL High 35 - 60 LDL (Calculated) 47 CALC Low 50 - 159 Laboratory test finding 2021 [facility] Insurance Auditor: Dr Pramod Leung [place] [id number] [phone] PSA 0.83 ng/mL <4.00 3 Lipid Panel 04/08/2021 [facility] nter [address] [place] [address] [phone] Triglycerides Level 39 mg/dL Normal <150 Cholesterol Level 119 mg/dL Normal <200 HDL Cholesterol 68 mg/dL Normal >40 LDL Cholesterol 43 mg/dL Normal <100 Non-HDL-C 51 mg/dL Normal Cholesterol Risk Ratio 1.750 Normal <5 CBC With Differential 01/26/2021 [facility] [address] [place] [address] [phone] White Blood Count 14.5 10 High 4.0-10.0 [...] 36.0-66.0 Lymph % 16.9 % Low 24.0-44.0 [place] % 8.6 % High 2.0-8.0 Eos % 0.4 % Normal 0.0-3.0 Baso % 0.1 % Normal 0.0-1.0 Immature Granulocyte % 0.7 % Normal 0-3.0 Nucleated Red Blood Cell % 0.0 % Normal 0-0 Neutrophils # 10.6 10 High 1.5-8.5 Lymph # 2.5 10 Normal 1.5-5.0 Kern # 1.3 10 High 0.0-0.8 Eos # 0.1 10 Normal 0.0-0.5 Baso # 0.0 10 Normal 0.0-0.2 Ua W/ Reflex To Culture 01/26/[address] [address] [phone] Appearance, Urine RFX CLEAR Normal Clear Color, Urine RFX YELLOW Normal Yellow PH,Urine RFX 7.0 units Normal 5.0-9.0 Specific [employer] Ur Auto RFX 1.005 Normal 1.002-1.035 Protein, [...] /LPF Normal 0-1 Laboratory test finding 01/26/[address] [address] [phone] Lactic Acid Sepsis Protocol 1.2 mmol/L Normal 0.4- 2.0 4 Cardiac Marker Panel 01/26/2021 [facility] C enter [address] [place] [address] [phone] CPK Creatine Phosphokinase 131 U/L Normal 39-30 8 CK-MB Value Mass 5.0 NG/ML High <3.6 MB/CK Relative Index 3.82 Normal < Or =4 5 Troponin I < 0.02 NG/ML Normal < 0.10 6 Liver Profile 01/26/2021 [facility] nter [address] [place] [address] [phone] Ast/Sgot 18 U/L Normal 7-37 Alt/SGPT 34 U/L Normal 12-78 Alkaline Phosphatase 97 U/L Normal 45-117 Bilirubin,Total 0.8 mg/dL Normal 0.2-1.0 Bilirubin,Direct 0.3 mg/dL High 0.0-0.2 Total Protein 6.8 GM/DL Normal 6.4-8.2 Albumin 3.6 GM/DL Normal 3.2-5.2 Albumin/Globulin Ratio 1.1 Normal Basic Metabolic Profile 01/26/[address] [address] [phone] Glucose, Fasting 102 mg/dL High 70-100 Blood Urea Nitrogen 11 mg/dL Normal 7-18 Creatinine For GFR 0.93 mg/dL Normal 0.70-1.30 Glomerular Filtration Rate > 60.0 Normal >42 7 Sodium Level 138 mEq/L Normal 136-145 Potassium Serum 3.7 mEq/L Normal 3.5-5.1 Chloride Level 106 mEq/L Normal 98-107 Carbon Dioxide Level 27 mEq/L Normal 21-32 Anion Gap 5 mEq/L Low 8-16 Calcium Level 8.7 mg/dL Low 8.8-10.2 Laboratory test finding 01/26/[address] [address] [phone] Lipase 74 U/L Normal 73-393 1 100-125 mg/dL PRE-DIABET ES/FASTING >126 mg/dL DIABETES/FASTING 2 CHRONIC KIDNEY DISEASE STAGI NG PER NKF STAGE I & II GFR >= 60 NORMAL TO MILDLY DECREASED STAGE III GFR 30-59 MODERATELY DECREASED STAGE IV GFR 15-29 SEVERELY DECREASED STAGE V GFR <15 VERY LITTLE GFR LEFT ESRD GFR <15 ON UPHOLSTERY REPAIRER 3 This assay was performed on the Siemens Dimension EXL using the B- Galactosidase/CPRG methodology and should not be compared interchangeably with other methods. The PSA should not be used alone as a screening test for the presence or absence of malignant disease. 4 Y/N query for Sepsis Lactate Rule: Y 5 DIAGNOSIS CRITERIA MMB ng/ml Relative Index (RI) NON-AMI < or = 5 N/A CHILDS ZONE > 5 < or = 4 AMI > 5 > 4 6 Troponin I Reference Interva l for Siemens [place] LOCI: 99th Percentile= 0.00-0.045 ng/ml Risk Stratification: <= 0.10 ng/ml Decreased Risk for Adverse Clinical Events. 0.10-1.50 ng/ml Increased Risk for Adv erse Clinical Events. Evaluation of additional criterion and/or repeat testing in 2-6 hours is suggested to rule out myocardial damage. >= 1.50 ng/ml Indicative of Myocardial Injury. 7 Units are mL/min/1.73 m2 Chronic Kidney Disease Staging per NKF: Stage I & II GFR >=60 Normal to Mildly Decreased Stage III GFR 30-59 Moderately Decreased Stage IV GFR 15-29 Severely Decreased Stage V GFR <15 Very Little GFR Left ESRD GFR <15 on UPHOLSTERY REPAIRER Procedures Date Code Description Status 02/14/2016 [id number] Colonoscopy Completed 09/13/2005 [id number] Colonoscopy Completed Medical Devices Description No Information Available Encounters Description No Information Available Assessments Date Code Description Provider 06/18/2021 I10 Essential (primary) hypertension Pramod Leung MD 06/18/2021 E78.00 Pure hypercholesterolemia, unspe cified Pramod Leung MD 06/18/2021 I48.20 Chronic atrial fibrillation, uns pecified Pramod Leung MD 06/18/2021 R73.09 Other abnormal glucose Pramod Leung MD 06/18/2021 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 Pramod Leung MD 06/18/2021 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 Pramod Leung MD 06/18/2021 G47.33 Obstructive sleep apnea (adult) (pediatric) Pramod Leung MD 06/18/2021 R91.1 Solitary pulmonary nodule Hi s Roxana Leung MD 2021 I10 Essential (primary) hypertension Pramod Leung MD 2021 I10 Essential (primary) hypertension Lab Schedule 2021 R73.09 Other abnormal glucose Pramod Leung MD 2021 R73.09 Other abnormal glucose Lab Sched ule 2021 Z12.5 Encounter for screening for susie gnant neoplasm of prostate Pramod Leung MD 2021 Z12.5 Encounter for screening for susie gnant neoplasm of prostate Lab Schedule 2021 E78.00 Pure hypercholesterolemia, unspe cified Pramod Leung MD 2021 E78.00 Pure hypercholesterolemia, unspe cified Lab Schedule Plan of Treatment Future Appointment(s):* 12/24/2021 8:10 am - Lab Schedule at [facility] * 12/25/2021 8:20 am - Pramod Leung MD at [facility] 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
--- OUTSIDE RECORDS SUMMARY | 2021-07-04 08:19 | CCD | Continuity of Care Document ---
Author Author Leonard Leung MD Organization Unknown Address [address] [facility] [address] [place] [address] Phone [phone] Care Team Providers Care Printing Press Operator Name Role Phone Pramod Leung JR, MD AUTM Unavailable [facility] AUTM [phone] Problems Active Problems Provider Date Benign essential [...] CPT Code Status Date Vaccine Lot # [id number] Given 06/18/2021 Pneumovax 23 [id number] U-Flu Given 05/17/2021 Influenza,Unspecified 21846 Given 05/21/2019 Influenza Vaccin e Quadrivalent Preser/Antibiotic Free Im Use [id number] 32016 Given 08/09/2018 Shingrix 78468 Given 06/02/2018 Influenza Virus Vaccine, Quadrivalent ([id number]), Derived From 9 Given 06/05/2017 Influenza Vaccin e Quadrivalent Preser/Antibiotic Free Im Use [id number] 86459 Given 10/18/2014 Prevnar 13 [id number] 11453 Given 08/28/2012 Zoster Vaccine 21648 Given 04/17/2010 Pneumovax 23 Vital Signs Date [...] Date Facility Test Result H/L Range Note Coronavirus 2019 Nasopharygeal 06/29/2021 [facility] [address] [place] [address] [phone] Coronavirus 2019 Nasopharygeal ASSAY INFORMATIO <SEE N OTE> 1 Complete Blood Count 2021 [facility] rashmi nunez Porcelain Enamel Laborer: [place] [address] [phone] WBC 7.3 x10*3/UL 4.1 - 10.9 RBC [...] 2.0 - 7.8 Comprehensive Chem Profile 2021 [facility] rashmi Aguilar Porcelain Enamel Laborer: [place] [address] [phone] Glucose 104 mg/dL High 74 - 99 2 BUN 14 mg/dL 7 - 18 Creatinine [...] mL/min >60 GFR >= 60 mL/min >60 3 Lipid Profile 2021 [facility] Porcelain Enamel Laborer: [place] [address] [phone] Cholesterol 114 mg/dL Low 131 - 200 Triglycerides 32 mg/dL 30 - 150 HDL Cholesterol 61 mg/dL High 35 - 60 LDL (Calculated) 47 CALC Low 50 - 159 Laboratory test finding 2021 [facility] [employer] [facility] Porcelain Enamel Laborer: Dr Pramod Leung [place] [id number] [phone] PSA 0.83 ng/mL <4.00 4 Lipid Panel 04/08/2021 [facility] nter [address] [place] [id number] [phone] Triglycerides Level 39 mg/dL Normal <150 Cholesterol Level 119 mg/dL Normal <200 HDL Cholesterol 68 mg/dL Normal >40 LDL Cholesterol 43 mg/dL Normal <100 Non-HDL-C 51 mg/dL Normal Cholesterol Risk Ratio 1.750 Normal <5 CBC With Differential 01/26/2021 [facility] [address] [place] [address] [phone] White Blood Count 14.5 10 High 4.0-10.0 [...] 36.0-66.0 Lymph % 16.9 % Low 24.0-44.0 [place] % 8.6 % High 2.0-8.0 Eos % 0.4 % Normal 0.0-3.0 Baso % 0.1 % Normal 0.0-1.0 Immature Granulocyte % 0.7 % Normal 0-3.0 Nucleated Red Blood Cell % 0.0 % Normal 0-0 Neutrophils # 10.6 10 High 1.5-8.5 Lymph # 2.5 10 Normal 1.5-5.0 [place] # 1.3 10 High 0.0-0.8 Eos # 0.1 10 Normal 0.0-0.5 Baso # 0.0 10 Normal 0.0-0.2 Ua W/ Reflex To Culture 01/26/2021 [place] [id number] [phone] Appearance, Urine RFX CLEAR Normal Clear Color, Urine RFX YELLOW Normal Yellow PH,Urine RFX 7.0 units Normal 5.0-9.0 Specific [place] Ur Auto RFX 1.005 Normal 1.002-1.035 Protein, [...] /LPF Normal 0-1 Laboratory test finding 01/26/[address] [address] [phone] Lactic Acid Sepsis Protocol 1.2 mmol/L Normal 0.4- 2.0 5 Cardiac Marker Panel 01/26/2021 [facility] enter [address] [place] [address] [phone] CPK Creatine Phosphokinase 131 U/L Normal 39-30 8 CK-MB Value Mass 5.0 NG/ML High <3.6 MB/CK Relative Index 3.82 Normal < Or =4 6 Troponin I < 0.02 NG/ML Normal < 0.10 7 Liver Profile 01/26/2021 [facility] nter [address] [place] [address] [phone] Ast/Sgot 18 U/L Normal 7-37 Alt/SGPT 34 U/L Normal 12-78 Alkaline Phosphatase 97 U/L Normal 45-117 Bilirubin,Total 0.8 mg/dL Normal 0.2-1.0 Bilirubin,Direct 0.3 mg/dL High 0.0-0.2 Total Protein 6.8 GM/DL Normal 6.4-8.2 Albumin 3.6 GM/DL Normal 3.2-5.2 Albumin/Globulin Ratio 1.1 Normal Basic Metabolic Profile 01/26/[address] [address] [phone] Glucose, Fasting 102 mg/dL High 70-100 Blood Urea Nitrogen 11 mg/dL Normal 7-18 Creatinine For GFR 0.93 mg/dL Normal 0.70-1.30 Glomerular Filtration Rate > 60.0 Normal >42 8 Sodium Level 138 mEq/L Normal 136-145 Potassium Serum 3.7 mEq/L Normal 3.5-5.1 Chloride Level 106 mEq/L Normal 98-107 Carbon Dioxide Level 27 mEq/L Normal 21-32 Anion Gap 5 mEq/L Low 8-16 Calcium Level 8.7 mg/dL Low 8.8-10.2 Laboratory test finding 01/26/[address] [address] [phone] Lipase 74 U/L Normal 73-393 1 ASSAY INFORMATION: Real Time RT-PCR NOTE: The COVID-19 assay has been cleared by the U.S. Food and Drug Administration under the Emergency Use Authorization (EUA). [employer] and [employer] are designated as high complexity laboratories by the Clinical Laboratory Improvement Amendments of 1988(CLIA) and are qualified to perform this test. Not Detected 2 100-125 mg/dL PRE-DIABET ES/FASTING >126 mg/dL DIABETES/FASTING 3 CHRONIC KIDNEY DISEASE STAGI NG PER NKF STAGE I & II GFR >= 60 NORMAL TO MILDLY DECREASED STAGE III GFR 30-59 MODERATELY DECREASED STAGE IV GFR 15-29 SEVERELY DECREASED STAGE V GFR <15 VERY LITTLE GFR LEFT ESRD GFR <15 ON NURSES AIDE 4 This assay was performed on the Simple Admit Dimension EXL using the B- Galactosidase/CPRG methodology and should not be compared interchangeably with other methods. The PSA should not be used alone as a screening test for the presence or absence of malignant disease. 5 Y/N query for Sepsis Lactate Rule: Y 6 DIAGNOSIS CRITERIA MMB ng/ml Relative Index (RI) NON-AMI < or = 5 N/A CHILDS ZONE > 5 < or = 4 AMI > 5 > 4 7 Troponin I Reference Interva l for Siemens Pepin LOCI: 99th Percentile= 0.00-0.045 ng/ml Risk Stratification: <= 0.10 ng/ml Decreased Risk for Adverse Clinical Events. 0.10-1.50 ng/ml Increased Risk for Adv erse Clinical Events. Evaluation of additional criterion and/or repeat testing in 2-6 hours is suggested to rule out myocardial damage. >= 1.50 ng/ml Indicative of Myocardial Injury. 8 Units are mL/min/1.73 m2 Chronic Kidney Disease Staging per NKF: Stage I & II GFR >=60 Normal to Mildly Decreased Stage III GFR 30-59 Moderately Decreased Stage IV GFR 15-29 Severely Decreased Stage V GFR <15 Very Little GFR Left ESRD GFR <15 on NURSES AIDE Procedures Date Code Description Status 06/18/2021 93761 Office/Outpatient Established Mo d MDM 30-39 Min Completed 02/14/2016 [id number] Colonoscopy Completed 09/13/2005 [id number] Colonoscopy Completed Medical Devices Description No Information Available Encounters Type Date Location Provider Dx Diagnosis Office Visit 06/18/2021 8:40a [facility] 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 G47.33 Obstructive sleep apnea (miguel lt) (pediatric) R91.1 Solitary pulmonary nodule Z23 Encounter for immunization Assessments Date Code Description Provider 06/18/2021 I10 Essential (primary) hypertension Pramod Leung MD 06/18/2021 E78.00 Pure hypercholesterolemia, unspe cified Pramod Leung MD 06/18/2021 I48.20 Chronic atrial fibrillation, uns pecified Pramod Leung MD 06/18/2021 R73.09 Other abnormal glucose Pramod Leung MD 06/18/2021 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 * 12/25/2021 8:20 am - Pramod Leung MD at [facility] 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
--- OUTSIDE RECORDS SUMMARY | 2021-07-04 08:19 | CCD | Continuity of Care Document ---
Author Author Lab Schedule, Leonard eMlgar Organization Unknown Address [address] [place] [address] Phone Unavailable Care Team Providers Care Corn Sheller Operator Name Role Phone Pramod Leung JR, MD AUTM Unavailable [facility] AUTM [phone] Problems Active Problems Provider Date Benign essential [...] By Mouth Every Day 90saroj Leung MD 03/10/2 017 Nitrostat 0.4mg Tablets Sub one under tongue every 5 minutes x 3 as needed for chest discomfort 25tabs Pramod Leung MD 04/15/2014 Nasonex 50mcg/Act Suspension 1 spray each nostril bid prn 1units Radhika Gonzalez, AIRPLANE FUELER 06/10/2013 Vitamin D-1000 1000Unit Tablets 1 by [...] Vaccine Lot # U-Flu Given 05/17/2021 Influenza,Unspecified 04349 Given 05/21/2019 Influenza Vaccin e Quadrivalent Preser/Antibiotic Free Im Use 089903 20242 Given 08/09/2018 Shingrix 13665 Given 06/02/2018 Influenza Virus Vaccine, Quadrivalent (Cciiv4), Derived From 6 Given 06/05/2017 Influenza Vaccin e Quadrivalent Preser/Antibiotic Free Im Use 618751 08091 Given 10/18/2014 Prevnar 13 [id number] 74147 Given 08/28/2012 Zoster Vaccine 23619 Given 04/17/2010 Pneumovax 23 Vital Signs Date [...] H/L Range Note Complete Blood Count 2021 [facility] [employer] [facility] [place] Cutting Machine Operator: [place] [address] [phone] WBC 7.3 x10*3/UL 4.1 - 10.9 RBC [...] 2.0 - 7.8 Comprehensive Chem Profile 2021 [facility] rashmi Aguilar [place] Cutting Machine Operator: [place] [address] [phone] Glucose 104 mg/dL High 74 - 99 [...] 60 mL/min >60 2 Lipid Profile 2021 [facility] [place] Cutting Machine Operator: Dr Pramod Leung [place] [id number] [phone] Cholesterol 114 mg/dL Low 131 - 200 Triglycerides 32 mg/dL 30 - 150 HDL Cholesterol 61 mg/dL High 35 - 60 LDL (Calculated) 47 CALC Low 50 - 159 Laboratory test finding 2021 [facility] [place] Cutting Machine Operator: [place] [address] [phone] PSA <pending> Lipid Panel 04/08/2021 [facility] nter [address] [place] [address] [phone] Triglycerides Level 39 mg/dL Normal <150 Cholesterol Level 119 mg/dL Normal <200 HDL Cholesterol 68 mg/dL Normal >40 LDL Cholesterol 43 mg/dL Normal <100 Non-HDL-C 51 mg/dL Normal Cholesterol Risk Ratio 1.750 Normal <5 CBC With Differential 01/26/2021 [facility] [address] [place] [address] [phone] White Blood Count 14.5 10 High 4.0-10.0 [...] 36.0-66.0 Lymph % 16.9 % Low 24.0-44.0 [place] % 8.6 % High 2.0-8.0 Eos % 0.4 % Normal 0.0-3.0 Baso % 0.1 % Normal 0.0-1.0 Immature Granulocyte % 0.7 % Normal 0-3.0 Nucleated Red Blood Cell % 0.0 % Normal 0-0 Neutrophils # 10.6 10 High 1.5-8.5 Lymph # 2.5 10 Normal 1.5-5.0 [place] # 1.3 10 High 0.0-0.8 Eos # 0.1 10 Normal 0.0-0.5 Baso # 0.0 10 Normal 0.0-0.2 Ua W/ Reflex To Culture 01/26/[address] [address] [phone] Appearance, Urine RFX CLEAR Normal Clear Color, Urine RFX YELLOW Normal Yellow PH,Urine RFX 7.0 units Normal 5.0-9.0 Specific [place] Ur Auto RFX 1.005 Normal 1.002-1.035 Protein, [...] /LPF Normal 0-1 Laboratory test finding 01/26/[address] [address] [phone] Lactic Acid Sepsis Protocol 1.2 mmol/L Normal 0.4- 2.0 3 Cardiac Marker Panel 01/26/2021 [facility] [address] [place] [id number] [phone] CPK Creatine Phosphokinase 131 U/L Normal 39-30 8 CK-MB Value Mass 5.0 NG/ML High <3.6 MB/CK Relative Index 3.82 Normal < Or =4 4 Troponin I < 0.02 NG/ML Normal < 0.10 5 Liver Profile 01/26/2021 [facility] nter [address] [place] [address] [phone] Ast/Sgot 18 U/L Normal 7-37 Alt/SGPT 34 U/L Normal 12-78 Alkaline Phosphatase 97 U/L Normal 45-117 Bilirubin,Total 0.8 mg/dL Normal 0.2-1.0 Bilirubin,Direct 0.3 mg/dL High 0.0-0.2 Total Protein 6.8 GM/DL Normal 6.4-8.2 Albumin 3.6 GM/DL Normal 3.2-5.2 Albumin/Globulin Ratio 1.1 Normal Basic Metabolic Profile 01/26/2021 [facility] [address] [place] [address] [phone] Glucose, Fasting 102 mg/dL High 70-100 Blood [...] mg/dL Low 8.8-10.2 Laboratory test finding 01/26/2021 [facility] [address] [place] [address] [phone] Lipase 74 U/L Normal 73-393 1 100-125 mg/dL PRE-DIABET ES/FASTING >126 mg/dL DIABETES/FASTING 2 CHRONIC KIDNEY DISEASE STAGI NG PER NKF STAGE I & II GFR >= 60 NORMAL TO MILDLY DECREASED STAGE III GFR 30-59 MODERATELY DECREASED STAGE IV GFR 15-29 SEVERELY DECREASED STAGE V GFR <15 VERY LITTLE GFR LEFT ESRD 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 <15 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 3 Y/N query for Sepsis Lactate Rule: Y 4 DIAGNOSIS CRITERIA MMB ng/ml Relative Index (RI) NON-AMI < or = 5 N/A CHILDS ZONE > 5 < or = 4 AMI > 5 > 4 5 Troponin I Reference Interva l for [employer] LOCI: 99th Percentile= 0.00-0.045 ng/ml Risk Stratification: [...] Little GFR Left ESRD GFR <15 on INTERSTATE BUS DISPATCHER Procedures Date Code Description Status 02/14/2016 [id number] Colonoscopy Completed 09/13/2005 [id number] Colonoscopy Completed Medical Devices Description No Information Available Encounters Description No Information Available Assessments Description No Information Available Plan of Treatment No Information Available Functional Status Description No Information Available Mental Status Description No Information Available Referrals Description No Information Available
--- OUTSIDE RECORDS SUMMARY | 2021-07-04 08:19 | CCD | Continuity of Care Document ---
Author Author Nurse #Leonard Alexander Organization Unknown Address [address] [facility] [address] [place] [address] Phone Unavailable Care Team Providers Care Manager Unit Name Role Phone Pramod Leung JR, MD AUTM Unavailable [facility] AUTM [phone] Problems Active Problems Provider Date Benign essential [...] take 1 tablet by mouth every day 90tabs Pramod Leung MD 03/02/2019 Tamsulosin HCL 0.4mg Capsules Take 1 Capsule By Mouth Every Day 1/2 Hour After The Same Meal 90asmita Leung MD 05/11/2018 Indapamide 1.25mg Tablets Take One Tablet By Mouth Every Day 90tabs Pramod Leung MD 017 Nitrostat 0.4mg Tablets Sub one under tongue every 5 minutes x 3 as needed for chest discomfort 25tabs Pramod Leung MD 04/15/2014 Nasonex 50mcg/Act Suspension 1 spray each nostril bid prn 1units Radhika Mony Mainor, TIN POT OPERATOR 06/10/2013 Vitamin D-1000 1000Unit Tablets 1 by [...] Vaccine Lot # U-Flu Given 05/17/2021 Influenza,Unspecified 29211 Given 05/21/2019 Influenza Vaccin e Quadrivalent Preser/Antibiotic Free Im Use 106528 06668 Given 08/09/2018 Shingrix 51103 Given 06/02/2018 Influenza Virus Vaccine, Quadrivalent (Cciiv4), Derived From 9 Given 06/05/2017 Influenza Vaccin e Quadrivalent Preser/Antibiotic Free Im Use [id number] 44250 Given 10/18/2014 Prevnar 13 [id number] 09172 Given 08/28/2012 Zoster Vaccine 44160 Given 04/17/2010 Pneumovax 23 Vital Signs Date [...] H/L Range Note Complete Blood Count 2021 [place] [employer] pc Dietitian Chief: [place] [address] [phone] WBC 7.3 x10*3/UL 4.1 - 10.9 RBC [...] 2.0 - 7.8 Comprehensive Chem Profile 2021 [place] rashmi Aguilar Dietitian Chief: [place] [address] [phone] Glucose 104 mg/dL High 74 - 99 [...] 60 mL/min >60 2 Lipid Profile 2021 [facility] Dietitian Chief: [place] [address] [phone] Cholesterol 114 mg/dL Low 131 - 200 Triglycerides 32 mg/dL 30 - 150 HDL Cholesterol 61 mg/dL High 35 - 60 LDL (Calculated) 47 CALC Low 50 - 159 Laboratory test finding 2021 [place] [employer] [facility] Dietitian Chief: [place] [address] [phone] PSA <pending> Lipid Panel 04/08/2021 [facility] nter [address] [place] [address] [phone] Triglycerides Level 39 mg/dL Normal <150 Cholesterol Level 119 mg/dL Normal <200 HDL Cholesterol 68 mg/dL Normal >40 LDL Cholesterol 43 mg/dL Normal <100 Non-HDL-C 51 mg/dL Normal Cholesterol Risk Ratio 1.750 Normal <5 CBC With Differential 01/26/2021 [facility] [address] [place] [address] [phone] White Blood Count 14.5 10 High 4.0-10.0 [...] 36.0-66.0 Lymph % 16.9 % Low 24.0-44.0 [place] % 8.6 % High 2.0-8.0 Eos % 0.4 % Normal 0.0-3.0 Baso % 0.1 % Normal 0.0-1.0 Immature Granulocyte % 0.7 % Normal 0-3.0 Nucleated Red Blood Cell % 0.0 % Normal 0-0 Neutrophils # 10.6 10 High 1.5-8.5 Lymph # 2.5 10 Normal 1.5-5.0 [place] # 1.3 10 High 0.0-0.8 Eos # 0.1 10 Normal 0.0-0.5 Baso # 0.0 10 Normal 0.0-0.2 Ua W/ Reflex To Culture 01/26/[address] [address] [phone] Appearance, Urine RFX CLEAR Normal Clear Color, Urine RFX YELLOW Normal Yellow PH,Urine RFX 7.0 units Normal 5.0-9.0 Specific [place] Ur Auto RFX 1.005 Normal 1.002-1.035 Protein, [...] /LPF Normal 0-1 Laboratory test finding 01/26/[address] [address] [phone] Lactic Acid Sepsis Protocol 1.2 mmol/L Normal 0.4- 2.0 3 Cardiac Marker Panel 01/26/2021 [facility] enter [address] [place] [address] [phone] CPK Creatine Phosphokinase 131 U/L Normal 39-30 8 CK-MB Value Mass 5.0 NG/ML High <3.6 MB/CK Relative Index 3.82 Normal < Or =4 4 Troponin I < 0.02 NG/ML Normal < 0.10 5 Liver Profile 01/26/2021 [facility] nter [address] [place] [address] [phone] Ast/Sgot 18 U/L Normal 7-37 Alt/SGPT 34 U/L Normal 12-78 Alkaline Phosphatase 97 U/L Normal 45-117 Bilirubin,Total 0.8 mg/dL Normal 0.2-1.0 Bilirubin,Direct 0.3 mg/dL High 0.0-0.2 Total Protein 6.8 GM/DL Normal 6.4-8.2 Albumin 3.6 GM/DL Normal 3.2-5.2 Albumin/Globulin Ratio 1.1 Normal Basic Metabolic Profile 01/26/2021 [facility] [address] [place] [address] [phone] Glucose, Fasting 102 mg/dL High 70-100 Blood [...] mg/dL Low 8.8-10.2 Laboratory test finding 01/26/2021 [facility] [address] [place] [address] [phone] Lipase 74 U/L Normal 73-393 1 100-125 mg/dL PRE-DIABET ES/FASTING >126 mg/dL DIABETES/FASTING 2 CHRONIC KIDNEY DISEASE STAGI NG PER NKF STAGE I & II GFR >= 60 NORMAL TO MILDLY DECREASED STAGE III GFR 30-59 MODERATELY DECREASED STAGE IV GFR 15-29 SEVERELY DECREASED STAGE V GFR <15 VERY LITTLE GFR LEFT ESRD GFR <15 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 3 Y/N query for Sepsis Lactate Rule: Y 4 DIAGNOSIS CRITERIA MMB ng/ml Relative Index (RI) NON-AMI < or = 5 N/A CHILDS ZONE > 5 < or = 4 AMI > 5 > 4 5 Troponin I Reference Interva l for [employer] LOCI: 99th Percentile= 0.00-0.045 ng/ml Risk Stratification: [...] Little GFR Left ESRD GFR <15 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
--- OUTSIDE RECORDS SUMMARY | 2021-07-04 08:20 | CCD | Continuity of Care Document ---
Author Author Holter/Event/TelemetryJimbo Organization Unknown Address [email or web address], [place] [address] Phone [phone] Care Team Providers Care Developer Trading Systems Name Role Phone Pramod Leung JR, MD AUTM [phone] Magdy Connor MD AUTM [phone] Awilda Ortiz MD AUTM [phone] Romero Bautista MD AUTM [phone] Lina Machado AUTM [phone] Grayson Ngo DDS AUTM [phone] Problems Active Problems Provider Date Atrial fibrillation Alden Middleton MD Onset: 08/09/2013 Acute idiopathic pericarditis Alden Middleton MD Onset: Disorder of pericardium Alden Middleton MD Onset: 08/09/20 13 Chest pain Alden Middleton MD Onset: 08/09/2013 Essential hypertension Alden Middleton MD Onset: 3 Difficulty breathing Alden Middleton MD Onset: 08/09/2013 Overweight Alden Middleton MD Onset: 08/09/2013 Pure hypercholesterolemia Alden Middleton MD Onset: 2012 Coronary arteriosclerosis Alden Middleton MD Onset: 2013 Edema Alden Middleton MD Onset: 02/25/2014 Atherosclerotic heart disease of [place] coronary arter y without angina pectoris Alden Middleton MD Onset: 05/19/2015 Atherosclerotic heart disease of [place] coronary artery with other forms of angina pectoris Alden Middleton MD Onset: 05/19/2015 Paroxysmal atrial fibrillation Alden Middleton MD Onset: 1 Obesity Alden Middleton MD Onset: 05/31/2016 Premature beats Alden Middleton MD Onset: 11/25/2016 First degree atrioventricular block Alden Middleton MD Ons et: 11/25/2016 Persistent atrial fibrillation Alden Middleton MD Onset: 1 Dietary management surveillance Alden Middleton MD Onset: 05/29/2017 Electrocardiogram abnormal Alden Middleton MD Onset: 11/28 Longstanding persistent atrial fibrillation Alden Middleton MD Onset: 07/09/2019 Atherosclerosis of aorta Alden Middleton MD Onset: 021 Preoperative cardiovascular examination Alden Middleton MD Onset: 10/19/2020 Social History Type Date Description Comments Sex Unknown ETOH Use Does not consume alcohol Tobacco Use Start: Unknown End: Unknown Patient is a former smoker hx of on and off for 40 yrs. longest time stopped was for 5 yrs. 1ppd quit 10/2012 Smoking Status Reviewed: 04/04/21 Patient is a former smoker hx of on and off for 40 yrs. longest time stopped was for 5 yrs. 1ppd quit 10/2012 Exercise Type/Frequency Does yardwork five times a week carrying in wood Exercise Type/Frequency Walks daily Exercise Limitations None Allergies, Adverse Reactions, Alerts Description No Known Drug Allergies Medications Active Medications SIG Qnty Indications Ordering Provide r Date Penicillin V Potassium 500mg Table ts 1 by mouth 4 times daily as directed post dental surgery for 10 days (started on 05/05/21) Unknown 05/10/2021 Potassium Chloride ER 8Meq Tablets ER 1 tablet by mouth once a day 90tabs I10 Alden Middleton MD 04/04/2021 Colchicine 0.6mg Capsules 1 by mouth once daily [discontinue if nausea, vomiting, or diarrhea] 90caps I25.118 Alden Middleton MD 10/19/2020 Losartan Potassium 25mg Tablets take one tablet by mouth daily at bedtime 90tabs I10 Alden vincent MD 06/01/2020 R60.0 I25.[address] 2 by mouth once a day Alden Middleton MD 12/31/[address] 1 by mouth every day I25.10 Alden Middleton MD 12/11/2018 I48.0 Indapamide 1.25mg Tablets take 1 tablet by mouth 4 days a week (pereyra---) and 2 tablets 3 days a week (--) 120tabs I10 Alden Middleton MD 06/02/2018 Tamsulosin HCL 0.4mg Capsules 1 by mouth every day Unknown 06/01/2018 Rosuvastatin Calcium 40mg Tablets 1 by mouth every day Unknown 11/22/2016 Nitrostat 0.4mg Tablets Sub 1 sl every 5min x3 as needed for chest pain 5bottles I25.118 Alden vincent MD 06/19/2014 Alprazolam 0.25mg Tablets 1-2 po q 4 hrs as needed max 8 daily Madhu MCGOVERN MD, [facility] 09/01/2012 Vitamin C 500mg Capsules 1 po qd Madhu MCGOVERN MD, Pramod 09/01/2012 Vitamin D 1000Unit Capsules 1 po qd Madhu MCGOVERN MD, [facility] 08/26/2012 Buspirone HCL 10mg Tablets 1 po tid Madhu MCGOVERN MD, [facility] 09/10/2011 Immunizations Description No Information Available Vital Signs Date Vital Result Comment 04/04/2021 8:15am Weight 189.00 lb Home Weight 189lb home weight Height 71 inches 5'11" BMI (Body Mass Index) 26.4 kg/m2 Heart Rate 72 /min BP Systolic Sitting 133 mmHg CBP, large cuff/Ra BP Diastolic Sitting 88 mmHg CBP, large cuff/Ra 10/19/2020 12:28pm Weight 200.00 lb Home Weight 202lb home weight Height 71 inches 5'11" BMI (Body Mass Index) 27.9 kg/m2 Heart Rate 94 /min BP Systolic Sitting 139 mmHg CBP, large cuff/Ra BP Diastolic Sitting 88 mmHg CBP, large cuff/Ra Results Test Acquired Date Facility Test Result H/L Range Note Lipid Panel 04/08/2021 [facility] nter [phone] Triglycerides Level 39 mg/dL Normal <150 Cholesterol Level 119 mg/dL Normal <200 HDL Cholesterol 68 mg/dL Normal >40 LDL Cholesterol 43 mg/dL Normal <100 Non-HDL-C 51 mg/dL Normal Cholesterol Risk Ratio 1.750 Normal <5 CMP 01/26/2021 [facility] - not interfaced (315)- - Albumin Serum/Plasma 3.6 Alt - SGPT 34 Calcium Ser/Plasma Mass/Vol 8.7 Carbon Dioxide Ser/Plasm 27 Chloride Serum/Plasma 106 Alkaline Phosphatase 97 Potassium 3.7 Protein Total 6.8 Sodium 138 Ast - Sgot 18 BUN - Urea Nitrogen 11 Glucose 102 83-110 Creatinine For GFR 0.93 CPK & CPK MB 01/26/2021 [facility] - not interfaced (315)- - CPK 131 CPK-MB 5.0 Laboratory test finding 01/26/2021 [facility] - not interf aced (315)- - Troponin <0.02 Lipase 74 CBC without Differential 01/26/2021 [facility] - not inter faced (315)- - White Blood Count 14.5 High 4.0-10.0 Red Blood Count 4.68 4.30-6.10 Platelets 243 150-450 Hemoglobin 14.7 Hematocrit 44.0 Procedures Date Code Description Status 05/15/2021 49502 External ECG Rec>48HR<7D Review & Interpretation Completed 05/15/2021 81204 External ECG Rec>48HR<7D Recordi ng Completed 04/04/2021 94253 Office/Outpatient Established Mo d MDM 30-39 Min Completed 04/04/2021 68925 Arterial Pressure Wa veform Analysis For Assessment Of Central Art Completed 04/04/2021 44848 ECG 12-Lead Completed Medical Devices Description No Information Available Encounters Type Date Location Provider Dx Diagnosis Office Visit 04/04/2021 8:00a Main Office Alden Middleton MD I48.1 9 Other persistent atrial fibrillation I25.118 Athscl heart disease of [place]onda ve cor art w oth ang pctrs I10 Essential (primary) hyperten jake 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 E78.00 Pure hypercholesterolemia, u nspecified E66.3 Overweight Z71.3 Dietary counseling and surve illance Assessments Date Code Description Provider 05/15/2021 I48.19 Other persistent atrial fibrilla tion Holter/Event/Telemetry 04/04/2021 I48.19 Other persistent atrial fibrilla tion Alden Middleton MD 04/04/2021 I25.118 Atherosclerotic heart disease of [place] coronary artery with Alden Middleton MD 04/04/2021 I10 Essential (primary) hypertension Alden Middleton MD 04/04/2021 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riza tion Alden Middleton MD 04/04/2021 E78.00 Pure hypercholesterolemia, unspe cified Alden Middleton MD 04/04/2021 E66.3 Overweight Alden Middleton MD 04/04/2021 Z71.3 Dietary counseling and surveilla nce Alden Middleton MD Plan of Treatment Future Appointment(s):* 10/10/2021 11:00 am - Alden Middleton MD at Main Office 04/04/2021 - Alden Middleton MD* I48.19 Other persistent atrial fibrillation* Recommendations:* One year post Watchman OZZY including risks as listed on the consent form were discussed with the patient. Patient will be scheduled for one year post Watchman OZZY. Continue aspirin 81 mg daily. 5 day patch Holter monitor was ordered. * I25.118 Atherosclerotic heart disease of [place] coronary artery with* Recommendations:* Continue aspirin 81 mg/d, Nitrostat, rosuvastatin 40 mg/d, colchicine at the current dosages. * I10 Essential (primary) hypertension* New Medication:* Potassium Chloride ER 8 Meq - 1 tablet by mouth once a day * Recommendations:* Potassium chloride ER 8 mg daily was added. Continue losartan and indapamide at the current dosages. * 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rization* Recommendations:* As noted above, patient will undergo further evaluation with a 5 day patch Holter monitor. * E78.00 Pure hypercholesterolemia, unspecified* Recommendations:* Continue rosuvastatin at the current dosage. Fasting lipid panel was ordered. Consider reduction in rosuvastatin dosage if LDL <55. Consume vegetables (starchy vegetables, non-starchy vegetables, leafy greens), raw fruit, intact whole grains, and legumes. Avoid animal products. Avoid processed foods. Avoid added fats (vegetable oils, margarine, butter, mayonnaise, lard). Avoid partially hydrogenated oils. Avoid refined grains (white rice, white flour and other grain flour products). Avoid refined sweeteners and artificial sweeteners. * E66.3 Overweight* Recommendations:* Nutrition advice as above. Continue current level of walking. * Z71.3 Dietary counseling and surveillance * All * Follow up:* Follow-up in [address] Middleton. Functional Status Functional Condition Comment Date Status Independent with all ADL's Activ e Mental Status Description No Information Available Referrals Description No Information Available
--- OUTSIDE RECORDS SUMMARY | 2021-07-04 08:20 | CCD ---
Author Author Alden Ferrer MD [facility] Organization Alden Ferrer MD [facility] Address [address] [place] [address] Phone Care Team Providers Care Tanning Salon Attendant Name Role Phone Madhu MCGOVERN MD, Pramod Villa PP [phone] Nathan OD, Daniele Friedman Unavailable [phone] John SCHRADER, Bogdan Unavailable [phone] Reason for Referral No Reason for Referral Recorded Problems Includes: Active, inactive, and resolved Problems All Visits Onset Date - Time Resolved Date - Time Provider Co ndition Status Cataract Senile Nuclear 03/19/2019 - 12:00AM Bogdan sanchez DO Active Vitreous Disorders Degeneration 03/19/2019 - 12:00AM Chato Lopez DO Active Plan of Treatment Future Appointments Date Time Location Provider 1 Year Follow-Up 06/27/2021 9:30AM Alden Ferrer MD [facility] Bogdan Lopez DO Assessments Includes: Assessments for all patient encounters Findings Encounter Date Nuclear senile cataract 11 Month Follow-Up with Bogdan enrique DO 06/23/2020 Vitreous degeneration 11 Month Follow-Up with Bogdan lennon DO 06/23/2020 Nuclear senile cataract 4 Month Follow-Up with Bogdan valencia DO 07/30/2019 Nuclear senile cataract NEW PATIENT WITH REFERRAL with Luciano Lopez DO 03/19/2019 Vitreous degeneration NEW PATIENT WITH REFERRAL with Bogdan Lopez DO 03/19/2019 Instructions Instructions not supported for this document typeNo Instructions Recorded Medical Equipment - Implanted Devices Includes: Current and historical DevicesNo Medical Equipment Recorded Medications Includes: Current and historical Medications Current Medications (continue as prescribed) Betamethasone Dipropionate 0.05% External Ointment 0 Provider: Diagnosis: Plavix 75 MG Oral Tablet 06/23/2020 Provider: Diagnosis: Trandolapril 1MG Oral Tablet 03/19/2019 Provider: Diagnosis: Rosuvastatin Calcium 40MG Oral Tablet 03/19/2019 Pr ovider: Diagnosis: busPIRone HCl 10MG Oral Tablet 03/19/2019 Provider: Diagnosis: ALPRAZolam 0.25MG Oral Tablet 03/19/2019 Provider: Diagnosis: 1-2 tabs Tamsulosin HCl 0.4MG Oral Capsule 03/19/2019 Provid er: Diagnosis: Aspirin 80MG Oral Tablet 03/19/2019 Provider: Diagnosis: Magnesium Chloride-Calcium 64-112MG Oral Tablet 03/19/2019 Provider: Diagnosis: 64 mg 2 tabs Vitamin D 1000UNIT Oral Tablet 03/19/2019 Provider: Diagnosis: Vitamin C 500MG Oral Tablet 03/19/2019 Provider: Diagnosis: Nitrostat 0.4MG Sublingual Tablet Sublingual 03/19/2019 Provider: Diagnosis: Indapamide 1.25MG Oral Tablet 03/19/2019 Provider: Diagnosis: Past Medications on file Xarelto 20MG Oral Tablet 03/19/2019 - 06/23/2020 Provider: Diagnosis: [facility] Melatonin 3MG Oral Tablet 03/19/2019 - 06/23/2020 Provid er: Diagnosis: Medications Administered Includes: Administered Medications in patient's chartNo Administered Medications Recorded Vital Signs Includes: Vital Signs from 04/18/2020 through 04/18/2021No Vital Signs Recorded For Specified Dates Results Includes: Results from 04/18/2020 through 04/18/2021No Results Recorded For Specified Dates History of Present Illness History of Present Illness not supported for this document typeNo History of Present Illness Recorded Social History Description Last Updated No tobacco use 06/23/2020 Not using drugs 06/23/2020 Smoking status : Former smoker 40 years 06/23/2020 Alcohol use 1-3 beers 4x a week 07/30/2019 Previous smoking history 07/30/2019 Procedures and Surgical History Includes: Procedures from 04/18/2020 through 04/18/2021 Procedures Code Diagnosis Performing Provider Service Location Service Date Intermediate Eye Exam Established Patient 89235 Age-related nuclear cataract, bilateral, Vitreous degeneration, bilateral Bogdan Aguilar MD [facility] 06/23/2020 Surgical History Last Updated Surgical / procedural history Lumbar La minectomy 1999, Cardioversion (x2) 2013, Cardiac Catheterization 2014 08/02/2019 Medical History Includes: Medical History in patient's chart Description Last Updated Recent change in medical history Watchm an Heart Procedure 02/2020, T.E.E. 04/2020, Sleep Apnea and C-Pap machine 10/2019, 06/23/2020 Reported medical history A-Fib, Anxiety, Sleep Apnea 06/23/2020 Currently wearing eyeglasses 07/30/2019 History of hyperlipidemia 07/30/2019 History of hypertension 07/30/2019 Family History Includes: Family History in patient's chart Description Last Updated Fraternal history of family history of cancer 06/23/20 20 Fraternal history of heart disease 06/23/2020 Maternal history of heart disease 06/23/2020 Paternal history of heart disease 06/23/2020 Paternal history of hypertension 06/23/2020 Review of Systems Review of Systems not supported for this document typeNo Review of Systems Recorded Mental Status Mental Status not supported for this document type Description Oriented to time, place, and person Anxiety Functional Status Functional Status not supported for this document typeNo Functional Status Recorded Physical Exam Physical Exam not supported for this document typeNo Physical Exam Recorded Immunizations Includes: Immunizations in patient's chartNo Immunizations Recorded Allergies Includes: Active, inactive, and resolved AllergiesNo Known Allergies Encounters Includes: Encounters from 04/18/2020 through 04/18/2021 Encounter Provider Location Date Check-In Time Check-Out Time D iagnosis 11 Month Follow-Up Bogdan Pittman MD [facility] 9:12AM 10:57AM Cataract Senile Nuclear, Vit reous Disorders Degeneration Insurance Includes: Active Insurance Policies Plan Name Member ID Group # Subscriber Relationship Effective Da jose 1 - [employer] [id number] Leonard Fontaineclair Self 08/18/2018 - Unknown Advance Directives Includes: Current Advance DirectivesNo Advance Directives Recorded Health Concerns Includes: Active Health ConcernsNo Active Health Concerns Recorded Goals Includes: Active GoalsNo Active Goals Recorded Interventions Includes: Interventions for active GoalsNo Interventions Recorded Evaluations & Outcomes Includes: Evaluations & Outcomes for active GoalsNo Outcomes Recorded
--- OUTSIDE RECORDS SUMMARY | 2021-07-04 08:20 | CCD ---
Continuity of Care Document (CCD) Created on: 06/08/2021 Leonard Khan External Reference #: [id number] : [id number] Sex: Male Author Author Leonard MACHADO N.P. Organization Unknown Address [address] [place] [address] Phone [phone] Care Team Providers Care Block Out Machine Operator Name Role Phone Alden Middleton M.D. AUTM [phone] Pramod Leung MD @ [facility] AUTM Problems Active Problems Provider Date Ex-smoker Romero Bautista MD Onset: 03/17/2012 Overweight Romero Bautista MD Onset: 09/02/2011 Abnormal findings on diagnostic imaging of lung Romero sargent MD Onset: 07/19/2010 Tobacco user Romero Bautista MD Onset: 07/19/2010 Social History Type Date Description Comments Sex Unknown Cigarette Use Pack Years - 50 Tobacco Use Start: 08/18/60 End: 08/18/10 Patient is a forme r smoker hx 1/2- 1ppdx 50yrs on and off Smoking Status Reviewed: 06/07/21 Patient is a former smoker hx 1/2-1ppdx 50yrs on and off Allergies and adverse reactions Description No Known Drug Allergies Medications Active Medications SIG Qnty Indications Ordering Provide r Date CPAP Device 12cm Lina Jones, N.P. 10/05/2019 Buspirone HCL 10mg Tablets 1 tab by mouth three times a day 60tabs Unknown Alprazolam 0.25mg Tablets 1-2 tabs by mouth as needed 60tabs Unknown Vitamin C 500mg Tablets 1 tab by mouth every day Unknown Aspir-[address] 1 tab by mouth every day Unknown Vitamin D 1000Unit Tablets 1 tab by mouth every day 30tabs Unknown Magnesium Chloride-Calcium 64-112mg Tablets 2 tabs by mouth every day Unknown Tamsulosin HCL 0.4mg Capsules 1 cap by mouth every day Unknown Nitroglycerin 0.4mg Tablets Sub as needed Unknown Indapamide 1.25mg Tablets 1 by mouth sun,tues,thurs,sat 2 by mouth on mon,wed,fri Unk nown Rosuvastatin Calcium 40mg Tablets 1 tab by mouth every day Unknown Losartan Potassium 25mg Tablets 1 tab by mouth at bedtime Unknown Potassium Chloride ER 8Meq Tablets ER 1 tab by mouth daily Unknown Immunizations CPT Code Status Date Vaccine Lot # [id number] Given 05/27/2012 Influenza Vaccine 3 Years Of Age Or Older (Flulaval) Q2036 Given 06/05/2011 Influenza Vaccine 3 Years Of Age Or Older (Flulaval) 67565 Given 05/15/2010 Influenza Vaccine 64748 Given 05/15/2010 Influenza Virus Split 3 Yrs And Above For Intramuscular Use 35396 Given 04/19/2010 Pneumococcal PPSV23 Vital Signs Date Vital Result Comment 06/07/2021 4:24pm BP Systolic 130 mmHg BP Diastolic 60 mmHg Heart Rate 89 /min O2 % BldC Oximetry 96 % Respiratory Rate 18 /min Height 70.5 inches 5'10.50" Weight 191.25 lb BMI (Body Mass Index) 27.1 kg/m2 [place] Body Weight 166 lb Weight 86.751 kg BSA (Body Surface Area) 2.06 m2 09/21/2020 8:39am BP Systolic 130 mmHg BP Diastolic 80 mmHg Heart Rate 96 /min O2 % BldC Oximetry 98 % Body Temperature 97.2 F Height 70.5 inches 5'10.50" Weight 206.00 lb BMI (Body Mass Index) 29.1 kg/m2 [place] Body Weight 166 lb Weight 93.442 kg BSA (Body Surface Area) 2.12 m2 Results Description No Information Available Procedures Description No Information Available Medical Devices Description No Information Available Encounters Description No Information Available Assessments Date Code Description Provider 06/07/2021 G47.33 Obstructive sleep apnea (adult) (pediatric) Lina Machado, N.P. Plan of Treatment Future Appointment(s):* 06/07/2022 9:45 am - Lina Machado, N.P. at [facility] Pulmonary/Thoracic 06/07/2021 - Lina Machado, N.P.* G47.33 Obstructive sleep apnea (adult) (pediatric) * * New Orders:* CPAP/BIPAP Supply, Ordered: 06/07/21 * Comments:* 1. No changes were made to the CPAP pressure at today's visit. 2. The patient is aware to call with any problems related to CPAP use, snoring through the mask or return of daytime sleepiness. 3. Per the patient's request, a CPAP supply order has been sent to the [facility]. * Follow up:* 1. Follow up in one year to reassess CPAP compliance or sooner should problems develop. Functional Status Description No Information Available Mental Status Mental Condition Comment Date Status Cognitive ability not impaired A ctive Referrals Description No Information Available
--- OUTSIDE RECORDS SUMMARY | 2021-07-04 08:20 | CCD | Continuity of Care Document ---
Author Author Leonard MACHADO N.P. Organization Unknown Address [address] [place] [address] Phone [phone] Care Team Providers Care Guest Advisor Name Role Phone Alden Middleton M.D. AUTM [phone] Pramod Leung MD @ [facility] AUTM Problems Active Problems Provider Date Ex-smoker [...] 3 Years Of Age Or Older (Flulaval) 64139 Given 05/15/2010 Influenza Vaccine 03241 Given 05/15/2010 Influenza Virus Split 3 Yrs And Above For Intramuscular Use 65270 Given 04/19/2010 Pneumococcal PPSV23 Vital Signs Date Vital Result Comment 06/07/2021 4:24pm BP Systolic 130 mmHg BP Diastolic 60 mmHg Heart Rate 89 /min O2 % BldC Oximetry 96 % Respiratory Rate 18 /min Height 70.5 inches 5'10.50" Weight 191.25 lb BMI (Body Mass Index) 27.1 kg/m2 [place] Body Weight 166 lb Weight 86.751 kg BSA (Body Surface Area) 2.06 m2 09/21/2020 8:39am BP Systolic 130 mmHg BP Diastolic 80 mmHg Heart Rate 96 /min O2 % BldC Oximetry 98 % Body Temperature 97.2 F Height 70.5 inches 5'10.50" Weight 206.00 lb BMI (Body Mass Index) 29.1 kg/m2 [place] Body Weight 166 lb Weight 93.442 kg BSA (Body Surface Area) 2.12 m2 Results Description No Information Available Procedures Description No Information Available Medical Devices Description No Information Available Encounters Description No Information Available Assessments Date Code Description Provider 06/07/2021 G47.33 Obstructive sleep apnea (adult) (pediatric) Lina Machado, N.P. Plan of Treatment Future Appointment(s):* 06/07/2022 9:45 am - Lina Machado, N.P. at [facility] Pulmonary/Thoracic 06/07/2021 - Lina Machado, N.P.* G47.33 [...] supply order has been sent to the [employer]. * Follow up:* 1. Follow up in one year to reassess CPAP compliance or sooner should problems develop. Functional Status Description No Information Available Mental Status Mental Condition Comment Date Status Cognitive ability not impaired A ctive Referrals Description No Information Available
--- OUTSIDE RECORDS SUMMARY | 2021-07-04 08:20 | CCD | Continuity of Care Document ---
Author Author Leonard LOPEZ M.D. Organization Unknown Address [address] [place] [address] Phone [phone] Care Team Providers Care Creative Services Director Name Role Phone Pramod Leung M.D. AUTM [phone] Problems Active Problems Provider Date Screening for malignant neoplasm of colon Aram ramirez M.D. Onset: 01/18/2016 Social History Type Date Description Comments Sex Unknown ETOH Use Occasionally Tobacco Use Start: Unknown Patient has never smoked Allergies and adverse reactions Description No Known Drug Allergies Medications Active Medications SIG Qnty Indications Ordering Provide r Date Suprep Bowel Prep Kit 17.5-3.13-1.6GM/177ML Solution use as directed 354ml Aram Lopez M.D. 05/10/2021 Rosuvastatin Calcium 40mg Tablets Unknown Buspirone HCL 10mg Tablets Unknown Alprazolam 0.25mg Tablets Unknown Nitrostat 0.4mg Tablets Sub Unknown Aspirin 325mg Tablets Unknown Vitamin D3 1000Unit Tablets 1 by mouth every day Unknown Vitamin C Plus 500mg Tablets Unknown Losartan Potassium 25mg Tablets Take 1 Tablet By Mouth Every Day AT Bedtime Unknown Indapamide 1.25mg Tablets Take 1 Tablet By Mouth Four Days A Week On Friday, Friday, And Unknown Colchicine 0.6mg Capsules Take 1 Capsule By Mouth Every Day ( Discontinue If Nausea, Vomiting Or Diarrhea Unknown Tamsulosin HCL 0.4mg Capsules Take 1 Capsule By Mouth Every Day 1/2 Hour After The Same Meal Unknown Potassium Chloride ER 8Meq Tablets ER Take 1 Tablet By Mouth Every Day Unknown Magnesium Chloride 64mg Tablets Unknown Immunizations Description No Information Available Vital Signs Date Vital Result Comment 05/10/2021 9:51am Height 72 inches 6'0" Weight 191.00 lb BP Systolic 131 mmHg BP Diastolic 74 mmHg Heart Rate 96 /min BMI (Body Mass Index) 25.9 kg/m2 Weight 86.638 kg Body Temperature 97.2 F 01/18/2016 2:59pm Height 72 inches 6'0" Weight 226.00 lb BP Systolic 128 mmHg BP Diastolic 78 mmHg Heart Rate 80 /min BMI (Body Mass Index) 30.6 kg/m2 Weight 102.514 kg Results Description No Information Available Procedures Date Code Description Status 05/10/2021 07304 Office/Outpatient New Low [facility] 30 -44 Minutes Completed Medical Devices Description No Information Available Encounters Type Date Location Provider Dx Diagnosis Office Visit 05/10/2021 9:30a Main Office Aram Lopez M.D. K 63.5 Polyp of colon Assessments Date Code Description Provider 05/10/2021 K63.5 Polyp of colon Aram lennon M.D. Plan of Treatment Future Appointment(s):* 06/20/2021 7:00 am - Ziyad at Main Office * 07/04/2021 9:15 am - Aram Lopez M.D. at Main Office 05/10/2021 - Aram Lopez M.D.* K63.5 Polyp of colon* Comments:* 75 yo wm who presents for colon cancer screening. Last scope was in 2015. No c/o abdominal pain, weight loss, change in bowel habits, or rectal bleeding. No family h/o colon cancer.History of Pericarditis, and Atrial Fibrillation in 2013. Positive h/o chest pain once every 6 months. No exertional chest pain, some sob. Had a Watchmen procedure-February/2020. Plan:1. Colonoscopy to cecum.2. Informed consent. Functional Status Description No Information Available Mental Status Description No Information Available Referrals Description No Information Available
--- OUTSIDE RECORDS SUMMARY | 2021-07-04 08:20 | CCD | Continuity of Care Document ---
Author Author Leonard MIDDLETON MD Organization Unknown Address [address] [employer] [facility] ([place], [place]), [place] [address] Phone [phone] Care Team Providers Care Coil Spring Assembler Name Role Phone Madhu MCGOVERN MD, Pramod Villa AUTM Magdy Connor MD AUTM [phone] Awilda Ortiz MD AUTM [phone] Romero Bautista MD AUTM [phone] Lina Machado AUTM [phone] Grayson Ngo DDS AUTM [phone] Problems Active Problems Provider Date Atrial fibrillation [...] MD Onset: 02/25/2014 Atherosclerotic heart disease of [place] coronary arter y without angina pectoris Alden Middleton MD Onset: 05/19/2015 Atherosclerotic heart disease of [place] coronary artery with other forms of angina [...] SIG Qnty Indications Ordering Provide r Date Potassium Chloride ER 8Meq Tablets ER 1 [...] tablet by mouth 4 days a week ([id number]-tu-th-[id number]) and 2 tablets 3 days a week [...] needed max 8 daily Madhu MCGOVERN MD, [facility] 09/01/2012 Vitamin C 500mg Capsules 1 po qd Madhu MCGOVERN MD, [facility] 09/01/2012 Vitamin D 1000Unit Capsules 1 po qd Madhu MCGOVERN MD, [facility] 08/26/2012 Buspirone HCL 10mg Tablets 1 po tid Madhu MCGOVERN MD, [facility] 09/10/2011 Immunizations Description No Information Available Vital [...] Date Facility Test Result H/L Range Note CMP 01/26/2021 [facility] - not interfaced (315)- - Albumin Serum/Plasma 3.6 Alt - SGPT 34 Calcium Ser/Plasma Mass/Vol 8.7 Carbon Dioxide Ser/Plasm 27 Chloride Serum/Plasma 106 Alkaline Phosphatase 97 Potassium 3.7 Protein Total 6.8 Sodium 138 Ast - Sgot 18 BUN - Urea Nitrogen 11 Glucose 102 83-110 Creatinine For GFR 0.93 CPK & CPK MB 01/26/2021 [facility] - not interfaced (315)- - CPK 131 CPK-MB 5.0 Laboratory test finding 01/26/2021 [facility] - not interf aced (315)- - Troponin <0.02 Lipase 74 CBC without Differential 01/26/2021 [facility] - not inter faced (315)- - White Blood Count 14.5 High 4.0-10.0 Red Blood Count 4.68 4.30-6.10 Platelets 243 150-450 Hemoglobin 14.7 Hematocrit 44.0 Procedures Date Code Description Status 04/04/2021 57685 Office/Outpatient Established Mo d MDM 30-39 Min Completed 04/04/2021 68276 Arterial Pressure Wa veform Analysis For Assessment Of Central Art Completed 04/04/2021 29168 ECG 12-Lead Completed 10/19/2020 56403 Office/Outpatient New Moderate M DM 45-59 Minutes Completed 10/19/2020 04326 Arterial Pressure Wa veform Analysis For Assessment Of Central Art Completed 10/19/2020 53039 ECG 12-Lead Completed Medical Devices Description No [...] Overweight Z71.3 Dietary counseling and surve illance Office Visit 10/19/2020 12:30p Main Office Alden Middleton MD I25.1 18 Athscl heart disease of [place] cor art w oth ang pctrs I10 Essential (primary) hyperten jake 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 I70.0 Atherosclerosis of aorta E78.00 Pure hypercholesterolemia, u nspecified E66.3 Overweight I48.11 Longstanding persistent atri al fibrillation Z01.810 Encounter for preprocedural cardiovascular examination Z71.3 Dietary counseling and surve illance Assessments Date Code Description Provider 04/04/2021 I48.19 Other persistent atrial fibrilla tion Alden Middleton MD 04/04/2021 I25.118 Atherosclerotic heart disease of [place] coronary artery with Alden Middleton MD 04/04/2021 I10 Essential (primary) hypertension Alden Middleton MD 04/04/2021 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riza tion Alden Middleton MD 04/04/2021 E78.00 Pure hypercholesterolemia, unspe cified Alden Middleton MD 04/04/2021 E66.3 Overweight Alden Middleton MD 04/04/2021 Z71.3 Dietary counseling and surveilla reenae Alden Middleton MD 10/19/2020 I25.118 Atherosclerotic heart disease of [place] coronary artery with Alden Middleton MD 10/19/2020 I10 Essential (primary) hypertension Alden Middleton MD 10/19/2020 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riza nasraon Alden Middleton MD 10/19/2020 I70.0 Atherosclerosis of aorta Alden Middleton MD 10/19/2020 E78.00 Pure hypercholesterolemia, unspe cified Alden Middleton MD 10/19/2020 E66.3 Overweight Alden Middleton MD 10/19/2020 I48.11 Longstanding persistent atrial f ibrillation Alden Middleton MD 10/19/2020 Z01.810 Encounter for preprocedural card iovascular examination Alden Middleton MD 10/19/2020 Z71.3 Dietary counseling and surveilla reenae Alden Middleton MD Plan of Treatment Future Appointment(s):* 10/10/2021 11:00 am - Alden Middleton MD at Main Office 04/04/2021 - Alden Middleton MD* I48.19 Other persistent atrial fibrillation* New Orders:* 5 Day Patch Monitor, Ordered: 04/04/21 * I25.118 Atherosclerotic heart disease of [place] coronary artery with * I10 Essential (primary) hypertension* New Medication:* Potassium Chloride ER 8 Meq - 1 tablet by mouth once a day * 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rization * E78.00 Pure hypercholesterolemia, unspecified* New Labs:* Lipid Panel, Ordered: 04/04/21 * E66.3 Overweight * Z71.3 Dietary counseling and surveillance * All * Follow up:* Follow-up in [address] Middleton. Functional Status Functional Condition Comment Date Status Independent with all ADL's Activ e Mental Status Description No Information Available Referrals Description No Information Available
--- OUTSIDE RECORDS SUMMARY | 2021-07-04 08:20 | CCD | Continuity of Care Document ---
Author Author Leonard MIDDLETON MD Organization Unknown Address [address] [employer] [facility], [place] [address] Phone [phone] Care Team Providers Care Homogenizer Operator Name Role Phone Madhu MCGOVERN MD, Pramod Villa AUTM Magdy Connor MD AUTM [phone] Awilda Ortiz MD AUTM [phone] Romero Bautista MD AUTM [phone] Lina Machado AUTM [phone] Grayson Ngo DDS AUTM [phone] Problems Active Problems Provider Date Atrial fibrillation [...] MD Onset: 02/25/2014 Atherosclerotic heart disease of [place] coronary arter y without angina pectoris Alden Middleton MD Onset: 05/19/2015 Atherosclerotic heart disease of [place] coronary artery with other forms of angina [...] and 2 tablets 3 days a week (-w-) 120tabs I10 Alden Middleton MD 06/02/2018 Tamsulosin HCL 0.4mg Capsules 1 by mouth every day Unknown 06/01/2018 Rosuvastatin Calcium 40mg Tablets 1 by mouth every day Unknown 11/22/2016 Nitrostat 0.4mg Tablets Sub 1 sl every 5min x3 as needed for chest pain 5bottles I25.118 Alden vincent MD 06/19/2014 Alprazolam 0.25mg Tablets 1-2 po q 4 hrs as needed max 8 daily Pramod Leung JR, MD 09/01/2012 Vitamin C 500mg Capsules 1 po qd Madhu MCGOVERN MD, Pramod Villa 09/01/2012 Vitamin D 1000Unit Capsules 1 po qd Madhu MCGOVERN MD, Pramod 08/26/2012 Buspirone HCL 10mg Tablets 1 po tid Pramod Leung JR, MD 09/10/2011 Immunizations Description No Information Available Vital [...] Result H/L Range Note Lipid Panel 04/08/2021 [facility] nter [phone] Triglycerides Level 39 mg/dL Normal <150 Cholesterol Level 119 mg/dL Normal <200 HDL Cholesterol 68 mg/dL Normal >40 LDL Cholesterol 43 mg/dL Normal <100 Non-HDL-C 51 mg/dL Normal Cholesterol Risk Ratio 1.750 Normal <5 CMP 01/26/2021 [facility] - not interfaced (315)- - Albumin Serum/Plasma 3.6 Alt - SGPT 34 Calcium Ser/Plasma Mass/Vol 8.7 Carbon Dioxide Ser/Plasm 27 Chloride Serum/Plasma 106 Alkaline Phosphatase 97 Potassium 3.7 Protein Total 6.8 Sodium 138 Ast - Sgot 18 BUN - Urea Nitrogen 11 Glucose 102 83-110 Creatinine For GFR 0.93 CPK & CPK MB 01/26/2021 [facility] - not interfaced (315)- - CPK 131 CPK-MB 5.0 Laboratory test finding 01/26/2021 [facility] - not interf aced (315)- - Troponin <0.02 Lipase 74 CBC without Differential 01/26/2021 [facility] - not inter faced (315)- - White Blood Count 14.5 High 4.0-10.0 Red Blood Count 4.68 4.30-6.10 Platelets 243 150-450 Hemoglobin 14.7 Hematocrit 44.0 Procedures Date Code Description Status 04/04/2021 71364 Office/Outpatient Established Mo d MDM 30-39 Min Completed 04/04/2021 22487 Arterial Pressure Wa veform Analysis For Assessment Of Central Art Completed 04/04/2021 52887 ECG 12-Lead Completed 10/19/2020 01534 Office/Outpatient New Moderate M DM 45-59 Minutes Completed 10/19/2020 40750 Arterial Pressure Wa veform Analysis For Assessment Of Central Art Completed 10/19/2020 91832 ECG 12-Lead Completed Medical Devices Description No Information Available Encounters Type Date Location Provider Dx Diagnosis Office Visit 04/04/2021 8:00a Main Office Alden Middleton MD I48.1 9 Other persistent atrial fibrillation I25.118 Athscl heart disease of [place] cor art w ot ang pctrs I10 Essential (primary) hyperten jake 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 E78.00 Pure hypercholesterolemia, u nspecified E66.3 Overweight Z71.3 Dietary counseling and surve illance Office Visit 10/19/2020 12:30p Main Office Alden Middleton MD I25.1 18 Athscl heart disease of [place] cor art w oth ang pctrs I10 [...] MD 04/04/2021 I25.118 Atherosclerotic heart disease of [place] coronary artery with Alden Middleton MD 04/04/2021 I10 Essential (primary) hypertension Alden Middleton MD 04/04/2021 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riza tion Alden Middleton MD 04/04/2021 E78.00 Pure hypercholesterolemia, unspe cified Alden Middleton MD 04/04/2021 E66.3 Overweight Alden Middleton MD 04/04/2021 Z71.3 Dietary counseling and surveilla nce Alden Middleton MD 10/19/2020 I25.118 Atherosclerotic heart disease of [place] coronary artery with Alden Middleton MD 10/19/2020 I10 Essential (primary) hypertension Alden Middleton MD 10/19/2020 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riza tion Alden Middleton MD 10/19/2020 I70.0 Atherosclerosis of aorta Alden Middleton MD 10/19/2020 E78.00 Pure hypercholesterolemia, unspe cified Alden Middleton MD 10/19/2020 E66.3 Overweight Alden Middleton MD 10/19/2020 I48.11 Longstanding persistent atrial f ibrillation Alden Middleton MD 10/19/2020 Z01.810 Encounter for preprocedural card iovascular examination Alden Middleton MD 10/19/2020 Z71.3 Dietary counseling and surveilla nce Alden Middleton MD Plan of Treatment Future Appointment(s):* 10/10/2021 11:00 am - Alden Middleton MD at Main Office 04/04/2021 - Alden Middleton MD* I48.19 Other persistent atrial fibrillation* New Orders:* 5 Day Patch Monitor, Ordered: 04/04/21 * I25.118 Atherosclerotic heart disease of [place] coronary artery with * I10 Essential (primary) hypertension* New Medication:* Potassium Chloride ER 8 Meq - 1 tablet by mouth once a day * 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rization * E78.00 Pure hypercholesterolemia, unspecified * E66.3 Overweight * Z71.3 Dietary counseling and surveillance * All * Follow up:* Follow-up in [address] Middleton. Functional Status Functional Condition Comment Date Status Independent with all ADL's Activ e Mental Status Description No Information Available Referrals Description No Information Available
--- OUTSIDE RECORDS SUMMARY | 2021-07-04 08:20 | CCD | Continuity of Care Document ---
Author Author Leonard LOPEZ M.D. Organization Unknown Address [address] [place] [address] Phone [phone] Care Team Providers Care Finished Goods Stock Clerk Name Role Phone Pramod Leung M.D. AUTM [phone] Problems Active Problems Provider Date Screening for [...] kg Results Description No Information Available Procedures Description No Information Available Medical Devices Description No Information Available Encounters Description No Information Available Assessments Date Code Description Provider 05/10/2021 K63.5 Polyp of colon Aram lennon M.D. Plan of Treatment Future Appointment(s):* 07/04/2021 9:15 am - Aram Lopez M.D. [...]
--- OUTSIDE RECORDS SUMMARY | 2021-07-04 08:20 | CCD ---
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 Active confirmed [id number] Problem Actinic keratoses L57.0 Active confirmed 40 [id number] Problem 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 Active confirmed 6 [id number] ALLERGIES No Known Allergies ENCOUNTERS from 1945 to 2021-05-14 Encounter Location Date Provider Diagnosis [facility] D[facility]atology [address] [place] [address] [place] [address] Apr, Jadyn Nowak Skin cancer screening Z12.83 ; Hx of basal cell carcinoma Z85.828 ; Hx of squamous cell carcinoma Z85.89 ; Actinic keratoses L57.0 ; Lentigines L81.4 ; Seborrheic keratoses L82.1 and Melanocytic nevi of trunk D22.5 IMMUNIZATIONS No Information SOCIAL HISTORY Tobacco Use: Social History Observation Description Date Details (start date - stop date) Never Smoker Sex Assigned At : Social History Observation Description Sex Assigned At Unknown Education: Question Answer Notes Level of Education: Finished College Language: Question Answer Notes Languages spoken: Wolof Sabianist: Question Answer Notes [employer]ist [employer] Alcohol Screening: Question Answer Notes Did you have a drink containing alcohol in the past year? Ye s Points 1 Interpretation Negative How many drinks did you have on a typica l day when you were drinking in the past year? 1 or 2 (0 points) How often did you have a drink containing alcohol in t he past year? Monthly or less (1 point) BMI Care Goal Follow-Up Question Answer Notes Above Normal BMI Follow-Up Giving encouragement to exercise Tobacco Use: Question Answer Notes Are you a: never smoker REASON FOR REFERRAL No Information VITAL SIGNS Weight 195.8 lbs Apr, 2020 Weight-kg 88.81 kg Apr, Height 72 in Apr, BMI 26.55 kg/m2 Apr, Blood pressure systolic 130 mm Hg Apr, Blood pressure diastolic 72 mm Hg Apr, MEDICATIONS Medication SIG (Take, Route, Frequency, Duration) Notes Start Da te End Date Status Carvedilol 6.25 MG 1 tab Orally twice a day Not-Taking Colchicine 0.6 MG 1 tablet Orally for 30 day(s) Active Magnesium Chloride ER 535 (64 Mg) MG 2 tablet Orally Daily Active Metoprolol Tartrate 100 mg 1 tablet Orally daily Not-Taking Melatonin 3 MG 1 tablet at bedtime as neede d with food Orally Once a day for 30 day(s) Not-Taking Crestor 40 MG 1 tablet Orally Once a day Not-Taking Vitamin C 100 mg 1 tab(s) Orally daily Active BuSpar 10 mg 1 tablet Orally Three times a day for 30 day(s) Not-Taking Nitrostat 0.4 MG as directed Sublingual Active Trandolapril 4 MG 1 tablet Orally Once a day at bedtime Not-Taking Indapamide 1.25 MG 1 tablet in the morning Orally Once a day for 30 day(s) Active Rosuvastatin Calcium 40 MG 1 tablet Orally Once a day for 30 day(s) Active Xarelto 20 MG 1 tablet with food Orally Once a day for 30 day(s) Not-Taking Vitamin D 1000 UNIT 1 tablet Orally Once a day for 30 day(s) Active ALPRAZolam 0.25 MG 1-2 tab(s) Orally as needed Active Indapamide 1.25 MG 1 tablet in the morning Orally Once a day Not-Taking Potassium Chloride ER 8 MEQ 2 tablets with food Orally Twice a day for 30 day(s) Active Losartan Potassium 25 MG 1 tablet Orally Once a day for 30 day(s) Active Aspirin 81 MG 1 tablet Orally Once a day for 30 day(s) Active Betamethasone Dipropionate Aug 0.05 % 1 application to affected area Externally BID to hand rash for 30 days Apr, Not -Taking Tamsulosin HCl 0.4 MG 1 capsule Orally Once a day for 30 day(s) Active Betamethasone Dipropionate Aug 0.05 % 1 application Ex ternally bid for 28 day(s) Oct, Not-Taking Nitroglycerin 0.4 MG as directed Sublingual as needed Not-Taking busPIRone HCl 10 MG 1 tablet Orally Twice a day Active PROCEDURES No Information RESULTS No Results REASON FOR VISIT 6 month fbse MEDICAL (GENERAL) HISTORY Type Description Date Medical History CLL diganosed 01/25 Medical History hypertension Medical History hyperlipidemia Medical History anxiety Medical History arthritis left hand Medical History Heart attack Medical History A Fib Medical History Obesity Medical History Insomnia Medical History Squamous cell carcinoma in situ of skin of chest Surgical History inguinal hernia (bilateral) Surgical History laminectomy Surgical History sinus Surgical History colonoscopy 02/14/16 Surgical History cadrioversion x 2 Surgical History cardiac catheter Surgical History Tooth removal Hospitalization History Afib, [facility] X1 night 07/2013 Goals Section No Information Health Concerns No Information MEDICAL EQUIPMENT No Information MENTAL STATUS No Information FUNCTIONAL STATUS No Information ASSESSMENTS Encounter Date Diagnosis Assessment Notes Treatment Notes Treatm ent Clinical Notes Apr, Skin cancer screening (ICD-10 - Z12.83) Patient counseled on signs and symptoms of skin cancer including ABCDE's of Melanoma. Patient counseled to wear sunscreen or use sun protective clothing when outdoors. Avoid peak hours of sun between 10-2. Patient instructed to call with any new or changing lesions. Apr, Hx of basal cell carcinoma (ICD-10 - Z85.828) NER Apr, Hx of squamous cell carcinoma (ICD-10 - Z85.89) NER Apr, Actinic keratoses (ICD-10 - L57.0) Cryotherapy x [ 2] number of sites. [place] protocol was followed in compliance with [facility] standards. Patient was counseled regarding the indication for treatment (precancerous state for actinic keratosis or cosmetic reasons if done for seborrheic keratoses, acrochordons or warts) as well as, the method and expected results to include compromise of the skin barrier, bleeding, scarring/white area, redness at site, lesion recurrence, and pain. Patient was consented to the risks and benefits of the procedure and gave informed consent. Lesion(s) with locations as indicated in the physical examination were treated. Lesion(s) were treated with 2 cycles of liquid nitrogen with a thaw time of at least ten seconds. Therapy was applied in a pulsed fashion to minimize collateral tissue injury. Patient was instructed to use Vaseline ointment to the area(s) until healed. Patient tolerated the procedure well and left in stable condition. Pain before and after the procedure were assessed to not be significantly different than baseline. Apr, Lentigines (ICD-10 - L81.4) Benign Lesion Counseling. The patient was extensively counseled regarding the benign nature of the lesion but that skin cancer may arise in this area just as it would anywhere on their skin. For that reason, return to clinic was recommended for any acute changes, itching, burning, or bleeding. The patient was educated that benign lesions are not a covered insurance benefit and treatment would be elective and cosmetic. They expressed understanding. Apr, Seborrheic keratoses (ICD-10 - L82.1) Benign lesion. Benign lesion counseling performed. Apr, Melanocytic nevi of trunk (ICD-10 - D22.5) Benign-appearing today. Reassurance provided, however patient was educated moles can change attendant time. ABCDE education performed. Patient instructed to return for any changes to the mole to include size, color, itching, burning, or bleeding. PLAN OF TREATMENT Treatment Notes Assessment Notes Clinical Notes Skin cancer screening Patient counseled on signs and symptoms of skin cancer including ABCDE's of Melanoma. Patient counseled to wear sunscreen or use sun protective clothing when outdoors. Avoid peak hours of sun between 10-2. Patient instructed to call with any new or changing lesions. Hx of basal cell carcinoma NER Hx of squamous cell carcinoma NER Actinic keratoses Cryotherapy x [ 2] n umber of sites. Redford protocol was followed in compliance with [facility] standards. Patient was counseled regarding the indication for treatment (precancerous state for actinic keratosis or cosmetic reasons if done for seborrheic keratoses, acrochordons or warts) as well as, the method and expected results to include compromise of the skin barrier, bleeding, scarring/white area, redness at site, lesion recurrence, and pain. Patient was consented to the risks and benefits of the procedure and gave informed consent. Lesion(s) with locations as indicated in the physical examination were treated. Lesion(s) were treated with 2 cycles of liquid nitrogen with a thaw time of at least ten seconds. Therapy was applied in a pulsed fashion to minimize collateral tissue injury. Patient was instructed to use Vaseline ointment to the area(s) until healed. Patient tolerated the procedure well and left in stable condition. Pain before and after the procedure were assessed to not be significantly different than baseline. Lentigines Benign Lesion Counse shreya. The patient was extensively counseled regarding the benign nature of the lesion but that skin cancer may arise in this area just as it would anywhere on their skin. For that reason, return to clinic was recommended for any acute changes, itching, burning, or bleeding. The patient was educated that benign lesions are not a covered insurance benefit and treatment would be elective and cosmetic. They expressed understanding. Seborrheic keratoses Benign lesion. Flavio gn lesion counseling performed. Melanocytic nevi of trunk Benign-appeari ng today. Reassurance provided, however patient was educated moles can change attendant time. ABCDE education performed. Patient instructed to return for any changes to the mole to include s ize, color, itching, burning, or bleeding. Next Appt Details 6 Months Reason:FBSE Provider Name:Jadyn Nowak, 07:30:00 AM, [address] [place] [address], , [place], [address], Follow Up:6 MonthsFBSE Insurance Providers Payer Name Payer Address Payer Phone Insured Name Patient Relati onship to Insured Coverage Start Date Coverage End Date MEDICARE BLUE PPO [address] [facility] [address] [id number] YUE KHAN
--- OUTSIDE RECORDS SUMMARY | 2021-07-04 08:20 | CCD | Continuity of Care Document ---
Author Author [facility] Organization Unknown Address [address] [place] [address] Phone [phone] Care Team Providers Care Referral Specialist Name Role Phone Alden Middleton M.D. AUTM [phone] Pramod Leung MD @ [facility] AUTM [phone] Problems Active Problems Provider Date Ex-smoker Romero [...] 3 Years Of Age Or Older (Flulaval) 78446 Given 05/15/2010 Influenza Vaccine 56173 Given 05/15/2010 Influenza Virus Split 3 Yrs And Above For Intramuscular Use 82355 Given 04/19/2010 Pneumococcal PPSV23 Vital Signs Date Vital Result Comment 06/07/2021 4:24pm BP Systolic 130 mmHg BP Diastolic 60 mmHg Heart Rate 89 /min O2 % BldC Oximetry 96 % Respiratory Rate 18 /min Height 70.5 inches 5'10.50" Weight 191.25 lb BMI (Body Mass Index) 27.1 kg/m2 [place] Body Weight 166 lb Weight 86.751 kg BSA (Body Surface Area) 2.06 m2 09/21/2020 8:39am BP Systolic 130 mmHg BP Diastolic 80 mmHg Heart Rate 96 /min O2 % BldC Oximetry 98 % Body Temperature 97.2 F Height 70.5 inches 5'10.50" Weight 206.00 lb BMI (Body Mass Index) 29.1 kg/m2 [place] Body Weight 166 lb Weight 93.442 kg BSA (Body Surface Area) 2.12 m2 Results Description No Information Available Procedures Date Code Description Status 06/07/2021 98115 Office/Outpatient Established Lo w MDM 20-29 Min Completed Medical Devices Description No Information Available Encounters Type Date Location Provider Dx Diagnosis Office Visit 06/07/2021 4:30p [facility] Ramón Machado, N.P. G47.33 Obstructive sleep apnea (adult) (pediatr ic) Assessments Date Code Description Provider 06/07/2021 G47.33 Obstructive sleep apnea (adult) (pediatric) Lina Machado [facility] Plan of Treatment Future Appointment(s):* 06/07/2022 9:45 am - Lina Machado [facility] at [facility] 06/07/2021 - Lina Machado N.P.* G47.33 Obstructive sleep apnea (adult) (pediatric) [...] supply order has been sent to the [facility]. * Follow up:* 1. Follow up in one year to reassess CPAP compliance or sooner should problems develop. Functional Status Description No Information Available Mental Status Mental Condition Comment Date Status Cognitive ability not impaired A ctive Referrals Description No Information Available
--- OUTSIDE RECORDS SUMMARY | 2021-07-04 08:20 | CCD | Continuity of Care Document ---
Author Author [facility] Organization Unknown Address [address] [place] [address] Phone [phone] Care Team Providers Care Manager Dish Name Role Phone Pramod Leung JR, MD AUTM Magdy Connor MD AUTM [phone] Awilda Ortiz MD AUTM [phone] Romero Bautista MD AUTM [phone] Lina Machado AUTM [phone] Grayson Ngo DDS AUTM [phone] Problems Active Problems Provider Date Atrial fibrillation [...] MD Onset: 02/25/2014 Atherosclerotic heart disease of [place] coronary arter y without angina pectoris Alden Middleton MD Onset: 05/19/2015 Atherosclerotic heart disease of [place] coronary artery with other forms of angina [...] needed max 8 daily Madhu MCGOVERN MD, [facility] 09/01/2012 Vitamin C 500mg Capsules 1 po qd Madhu MCGOVERN MD, Pramod 09/01/2012 Vitamin D 1000Unit Capsules 1 po qd Madhu MCGOVERN MD, [facility] 08/26/2012 Buspirone HCL 10mg Tablets 1 po tid Madhu MCGOVERN MD, [facility] 09/10/2011 Immunizations Description No Information Available Vital [...] Result H/L Range Note Lipid Panel 04/08/2021 [facility] nter [phone] Triglycerides Level 39 mg/dL Normal <150 Cholesterol Level 119 mg/dL Normal <200 HDL Cholesterol 68 mg/dL Normal >40 LDL Cholesterol 43 mg/dL Normal <100 Non-HDL-C 51 mg/dL Normal Cholesterol Risk Ratio 1.750 Normal <5 CMP 01/26/2021 [facility] - not interfaced (315)- - Albumin Serum/Plasma 3.6 Alt - SGPT 34 Calcium Ser/Plasma Mass/Vol 8.7 Carbon Dioxide Ser/Plasm 27 Chloride Serum/Plasma 106 Alkaline Phosphatase 97 Potassium 3.7 Protein Total 6.8 Sodium 138 Ast - Sgot 18 BUN - Urea Nitrogen 11 Glucose 102 83-110 Creatinine For GFR 0.93 CPK & CPK MB 01/26/2021 [facility] - not interfaced (315)- - CPK 131 CPK-MB 5.0 Laboratory test finding 01/26/2021 [facility] - not interf aced (315)- - Troponin <0.02 Lipase 74 CBC without Differential 01/26/2021 [facility] - not inter faced (315)- - White Blood Count 14.5 High 4.0-10.0 Red Blood Count 4.68 4.30-6.10 Platelets 243 150-450 Hemoglobin 14.7 Hematocrit 44.0 Procedures Date Code Description Status 05/15/2021 59639 External ECG Rec>48HR<7D Review & Interpretation Completed 05/15/2021 90833 External ECG Rec>48HR<7D Recordi ng Completed 04/04/2021 33601 Office/Outpatient Established Mo d MDM 30-39 Min Completed 04/04/2021 85746 Arterial Pressure Wa veform Analysis For Assessment Of Central Art Completed 04/04/2021 66169 ECG 12-Lead Completed Medical Devices Description No [...] MD 04/04/2021 I25.118 Atherosclerotic heart disease of [place] coronary artery with Alden Middleton MD 04/04/2021 [...] ordered. * I25.118 Atherosclerotic heart disease of [place] coronary artery with* Recommendations:* Continue aspirin 81 [...]
--- OUTSIDE RECORDS SUMMARY | 2021-07-04 08:20 | CCD | Continuity of Care Document ---
Author Author [facility]ACHAD[facility] N[facility] Organization Unknown Address [address] [place] [address] Phone [phone] Care Team Providers Care Taxi Cab Driver Name Role Phone Alden Middleton M.D. AUTM [phone] Pramod Leung MD @ [facility] AUTM Problems Active Problems Provider Date [...] Ordering Provide r Date CPAP Device 12cm Lnia Jones, N.P. 10/05/2019 Buspirone HCL 10mg Tablets [...] 3 Years Of Age Or Older (Flulaval) 519[address] Given 05/15/2010 Influenza Vaccine 66912 Given 05/15/2010 Influenza Virus Split 3 Yrs And Above For Intramuscular Use 66699 Given 04/19/2010 Pneumococcal PPSV23 Vital Signs Date Vital Result Comment 06/07/2021 4:24pm BP Systolic 130 mmHg BP Diastolic 60 mmHg Heart Rate 89 /min O2 % BldC Oximetry 96 % Respiratory Rate 18 /min Height 70.5 inches 5'10.50" Weight 191.25 lb BMI (Body Mass Index) 27.1 kg/m2 [place] Body Weight 166 lb Weight 86.751 kg BSA (Body Surface Area) 2.06 m2 09/21/2020 8:39am BP Systolic 130 mmHg BP Diastolic 80 mmHg Heart Rate 96 /min O2 % BldC Oximetry 98 % Body Temperature 97.2 F Height 70.5 inches 5'10.50" Weight 206.00 lb BMI (Body Mass Index) 29.1 kg/m2 [place] Body Weight 166 lb Weight 93.442 kg BSA (Body Surface Area) 2.12 m2 Results Description No Information Available Procedures Description No Information Available Medical Devices Description No Information Available Encounters Description No Information Available Assessments Date Code Description Provider 06/07/2021 G47.33 Obstructive sleep apnea (adult) (pediatric) Lina Machado, N.P. Plan of Treatment Future Appointment(s):* 06/07/2022 9:45 am - Lina Machado, N.P. at [facility] 06/07/2021 - Lina Machado, N.P.* [...] supply order has been sent to the [facility]. * Follow up:* 1. Follow up in one year to reassess CPAP compliance or sooner should problems develop. Functional Status Description No Information Available Mental Status Mental Condition Comment Date Status Cognitive ability not impaired A ctive Referrals Description No Information Available
--- OUTSIDE RECORDS SUMMARY | 2021-07-04 08:20 | CCD | Continuity of Care Document ---
Author Author Lab Schedule, Leonard Melgar Organization Unknown Address [address] [place] [phone] Phone Unavailable Care Team Providers Care Practice Architect Name Role Phone Pramod Leung JR, MD AUTM Unavailable Problems Active Problems Provider Date Benign essential [...] The Same Meal 90asmita Leung MD 05/11/2018 Shingrix 50mcg Suspension Rec administer 0.5 milliliters intramuscular, repeat in 2 to 6 months 2units Pramod Leung MD 10/31/2017 Indapamide 1.25mg Tablets Take One Tablet By Mouth Every Day 90tabs Pramod Leung MD 017 Nitrostat 0.4mg Tablets Sub one under tongue every 5 minutes x 3 as needed for chest discomfort 25tabs Pramod Leung MD 04/15/2014 Nasonex 50mcg/Act Suspension 1 spray each nostril bid prn 1units Radhika Gonzalez, ICE HAND[employer]ER 06/10/2013 Vitamin D-1000 1000Unit Tablets 1 by [...] by mouth every day Pramod Leung MD Medications Administered in Office Medication SIG Qnty Indications Ordering Provider Date Covid-19 vaccine, Unspecified Inj ection Unknown 10/10/2020 Covid-19 vaccine, Unspecified Inj ection Unknown 09/12/2020 Immunization Adminstration,1 Vaccine/Tox oid Injection Pramod Leung MD 2018 Immunization Adminstration,1 Vaccine/Tox oid Injection Pramod Leung MD 2017 Immunizations CPT Code Status Date Vaccine Lot # [id number] Given 05/17/2021 Influenza,Unspecified [id number] Given 05/21/2019 Influenza Vaccin e Quadrivalent Preser/Antibiotic Free Im Use [id number] Given 08/09/2018 Shingrix 30309 Given 06/02/2018 Influenza Virus Vaccine, Quadrivalent ([id number]), Derived From 1 Given 06/05/2017 Influenza Vaccin e Quadrivalent Preser/Antibiotic Free Im Use [id number] Given 10/18/2014 Prevnar 13 [id number] Given 08/28/2012 Zoster Vaccine 64967 Given 04/17/2010 Pneumovax 23 Vital Signs Date Vital Result Comment 12/12/2020 8:11am BP Systolic 126 mmHg BP Diastolic 76 mmHg Heart Rate 68 /min Height 70 inches 5'10" Weight 204.00 lb BMI (Body Mass Index) 29.3 kg/m2 06/09/2020 9:37am BP Systolic 128 mmHg BP Diastolic 76 mmHg Heart Rate 72 /min Weight 206.00 lb Results Test Acquired Date Facility Test Result H/L Range Note Lipid Panel 04/08/2021 [facility] [address] [place] [address] [phone] Triglycerides Level 39 mg/dL Normal <150 Cholesterol Level 119 mg/dL Normal <200 HDL Cholesterol 68 mg/dL Normal >40 LDL Cholesterol 43 mg/dL Normal <100 Non-HDL-C 51 mg/dL Normal Cholesterol Risk Ratio 1.750 Normal <5 CBC With Differential 01/26/2021 [facility] [address] [place] [address] [phone] White Blood Count 14.5 10 High 4.0-10.0 [...] 36.0-66.0 Lymph % 16.9 % Low 24.0-44.0 [place] % 8.6 % High 2.0-8.0 Eos % 0.4 % Normal 0.0-3.0 Baso % 0.1 % Normal 0.0-1.0 Immature Granulocyte % 0.7 % Normal 0-3.0 Nucleated Red Blood Cell % 0.0 % Normal 0-0 Neutrophils # 10.6 10 High 1.5-8.5 Lymph # 2.5 10 Normal 1.5-5.0 [place] # 1.3 10 High 0.0-0.8 Eos # 0.1 10 Normal 0.0-0.5 Baso # 0.0 10 Normal 0.0-0.2 Ua W/ Reflex To Culture 01/26/2021 [place] [id number] [place] [address] [phone] Appearance, Urine RFX CLEAR Normal Clear Color, Urine RFX YELLOW Normal Yellow PH,Urine RFX 7.0 units Normal 5.0-9.0 Specific [place] Ur Auto RFX 1.005 Normal 1.002-1.035 Protein, [...] /LPF Normal 0-1 Laboratory test finding 01/26/[address] [address] [phone] Lactic Acid Sepsis Protocol 1.2 mmol/L Normal 0.4- 2.0 1 Cardiac Marker Panel 01/26/2021 [facility] enter [address] [place] [phone] [phone] CPK Creatine Phosphokinase 131 U/L Normal 39-30 8 CK-MB Value Mass 5.0 NG/ML High <3.6 MB/CK Relative Index 3.82 Normal < Or =4 2 Troponin I < 0.02 NG/ML Normal < 0.10 3 Liver Profile 01/26/2021 [facility] [address] [place] [address] [phone] Ast/Sgot 18 U/L Normal 7-37 Alt/SGPT 34 U/L Normal 12-78 Alkaline Phosphatase 97 U/L Normal 45-117 Bilirubin,Total 0.8 mg/dL Normal 0.2-1.0 Bilirubin,Direct 0.3 mg/dL High 0.0-0.2 Total Protein 6.8 GM/DL Normal 6.4-8.2 Albumin 3.6 GM/DL Normal 3.2-5.2 Albumin/Globulin Ratio 1.1 Normal Basic Metabolic Profile 01/26/2021 [place] [id number] [phone] Glucose, Fasting 102 mg/dL High 70-100 Blood Urea Nitrogen 11 mg/dL Normal 7-18 Creatinine For GFR 0.93 mg/dL Normal 0.70-1.30 Glomerular Filtration Rate > 60.0 Normal >42 4 Sodium Level 138 mEq/L Normal 136-145 Potassium Serum 3.7 mEq/L Normal 3.5-5.1 Chloride Level 106 mEq/L Normal 98-107 Carbon Dioxide Level 27 mEq/L Normal 21-32 Anion Gap 5 mEq/L Low 8-16 Calcium Level 8.7 mg/dL Low 8.8-10.2 Laboratory test finding 01/26/[address] [address] [phone] Lipase 74 U/L Normal 73-393 1 Y/N query for Sepsis Lactate Rule: Y 2 DIAGNOSIS CRITERIA MMB ng/ml Relative Index (RI) NON-AMI < or = 5 N/A CHILDS ZONE > 5 < or = 4 AMI > 5 > 4 3 Troponin I Reference Interva l for WP F[facility]-Safe [place] LOCI: 99th Percentile= 0.00-0.045 ng/ml Risk Stratification: <= 0.10 ng/ml Decreased Risk for Adverse Clinical Events. 0.10-1.50 ng/ml Increased Risk for Adv erse Clinical Events. Evaluation of additional criterion and/or repeat testing in 2-6 hours is suggested to rule out myocardial damage. >= 1.50 ng/ml Indicative of Myocardial Injury. 4 Units are mL/min/1.73 m2 Chronic Kidney Disease Staging per NKF: Stage I & II GFR >=60 Normal to Mildly Decreased Stage III GFR 30-59 Moderately Decreased Stage IV GFR 15-29 Severely Decreased Stage V GFR <15 Very Little GFR Left ESRD GFR <15 on [employer] Procedures Date Code Description Status 02/14/2016 [id number] Colonoscopy Completed 09/13/2005 [id number] Colonoscopy Completed Medical Devices Description No Information Available Encounters Description No Information Available Assessments Description No Information Available Plan of Treatment Future Appointment(s):* 06/18/2021 8:40 am - Pramod Leung MD at [facility] * 06/18/2021 8:20 am [facility] 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
--- OUTSIDE RECORDS SUMMARY | 2021-07-04 08:20 | CCD | Continuity of Care Document ---
Author Author Leonard MACHADO N.P. Organization Unknown Address [address] [place] [address] Phone [phone] Care Team Providers Care Acute Care Nurse Practitioner Name Role Phone Alden Middleton M.D. AUTM [phone] Pramod Leung MD @ [facility] AUTM [phone] Problems Active Problems Provider Date Ex-smoker Romero [...] 3 Years Of Age Or Older (Flulaval) 11739 Given 05/15/2010 Influenza Vaccine 45433 Given 05/15/2010 Influenza Virus Split 3 Yrs And Above For Intramuscular Use 35205 Given 04/19/2010 Pneumococcal PPSV23 Vital Signs Date Vital Result Comment 06/07/2021 4:24pm BP Systolic 130 mmHg BP Diastolic 60 mmHg Heart Rate 89 /min O2 % BldC Oximetry 96 % Respiratory Rate 18 /min Height 70.5 inches 5'10.50" Weight 191.25 lb BMI (Body Mass Index) 27.1 kg/m2 [place] Body Weight 166 lb Weight 86.751 kg BSA (Body Surface Area) 2.06 m2 09/21/2020 8:39am BP Systolic 130 mmHg BP Diastolic 80 mmHg Heart Rate 96 /min O2 % BldC Oximetry 98 % Body Temperature 97.2 F Height 70.5 inches 5'10.50" Weight 206.00 lb BMI (Body Mass Index) 29.1 kg/m2 [place] Body Weight 166 lb Weight 93.442 kg BSA (Body Surface Area) 2.12 m2 Results Description No Information Available Procedures Description No Information Available Medical Devices Description No Information Available Encounters Description No Information Available Assessments Date Code Description Provider 06/07/2021 G47.33 Obstructive sleep apnea (adult) (pediatric) Lina Machado, N.P. Plan of Treatment Future Appointment(s):* 06/07/2022 9:45 am - Lina Machado, N.P. at [facility] Pulmonary/Thoracic 06/07/2021 - Lina Machado, N.P.* G47.33 [...] supply order has been sent to the [employer]. * Follow up:* 1. Follow up in one year to reassess CPAP compliance or sooner should problems develop. Functional Status Description No Information Available Mental Status Mental Condition Comment Date Status Cognitive ability not impaired A ctive Referrals Description No Information Available
--- OUTSIDE RECORDS SUMMARY | 2021-07-04 08:21 | CCD ---
Author Author [facility] Organization [facility] Address Unknown Phone Unavailable Care Team Providers Care Collection Manager Name Role Phone Polo Lopez MD Unavailable Unavailable Polo Lopez MD Unavailable Unavailable Polo Lopez MD Unavailable Unavailable Polo Lopez MD Unavailable Unavailable Polo Lopez MD Unavailable Unavailable Polo Lopez MD Unavailable Unavailable Polo Lopez MD Unavailable Unavailable Polo Lopez MD Unavailable Unavailable Polo Lopez MD Unavailable Unavailable Polo Lopez MD Unavailable Unavailable Polo Lopez MD Unavailable Unavailable Polo Lopez MD Unavailable Unavailable Polo Lopez MD Unavailable Unavailable Polo Lopez MD Unavailable Unavailable Polo Lopez MD Unavailable Unavailable Polo Lopez MD Unavailable Unavailable Polo Lopez MD Unavailable Unavailable Polo Lopez MD Unavailable Unavailable Polo Lopez MD Unavailable Unavailable Polo Lopez MD Unavailable Unavailable Polo Lopez MD Unavailable Unavailable Polo Lopez MD Unavailable Unavailable Polo Lopez MD Unavailable Unavailable Polo Lopez MD Unavailable Unavailable Polo Lopez MD Unavailable Unavailable Polo Lopez MD Unavailable Unavailable Polo Lopez MD Unavailable Unavailable Polo Lopez MD Unavailable Unavailable Polo Lopez MD Unavailable Unavailable Polo Lopez MD Unavailable Unavailable Polo Lopez MD Unavailable Unavailable Polo Lopez MD Unavailable Unavailable Polo Lopez MD Unavailable Unavailable Polo Lopez MD Unavailable Unavailable Polo Lopez MD Unavailable Unavailable Polo Lopez MD Unavailable Unavailable Polo Lopez MD Unavailable Unavailable Polo Lopez MD Unavailable Unavailable Polo Lopez MD Unavailable Unavailable Polo Lopez MD Unavailable Unavailable Polo Lopez MD Unavailable Unavailable Polo Lopez MD Unavailable Unavailable Polo Lopez MD Unavailable Unavailable Polo Lopez MD Unavailable Unavailable Polo Lopez MD Unavailable Unavailable Polo Lopez MD Unavailable Unavailable Polo Lopez MD Unavailable Unavailable Polo Lopez MD Unavailable Unavailable Polo Lopez MD Unavailable Unavailable Polo Lopez MD Unavailable Unavailable Polo Lopez MD Unavailable Unavailable NURSE, JOURDAN PORRAS Unavailable Unavailable Allen Leung MD Unavailable Unavailable Allen Leung MD Unavailable Unavailable Allen Leung MD Unavailable Unavailable Allen Leung MD Unavailable Unavailable Allen Leung MD Unavailable Unavailable Allen Leung MD Unavailable Unavailable Allen Leung MD Unavailable Unavailable Allen Leung MD Unavailable Unavailable Allen Leung MD Unavailable Unavailable Allen Leung MD Unavailable Unavailable Allen Leung MD Unavailable Unavailable Allen Leung MD Unavailable Unavailable Allen Leung MD Unavailable Unavailable Allen Leung MD Unavailable Unavailable Allen Leung MD Unavailable Unavailable Allen Leung MD Unavailable Unavailable Allen Leung MD Unavailable Unavailable Allen Leung MD Unavailable Unavailable Allen Leung MD Unavailable Unavailable Allen Leung MD Unavailable Unavailable Allen Leung MD Unavailable Unavailable Allen Leung MD Unavailable Unavailable MartinsburgAllen schneider MD Unavailable Unavailable Allen Leung MD Unavailable Unavailable Allen Leung MD Unavailable Unavailable Allen Leung MD Unavailable Unavailable Allen Leung MD Unavailable Unavailable Allen Leung MD Unavailable Unavailable MadhuAllen schneider MD Unavailable Unavailable MartinsburgAllen schneider MD Unavailable Unavailable MartinsburgAllen MD Unavailable Unavailable MadhuAllen MD Unavailable Unavailable MadhuAllen MD Unavailable Unavailable MadhuAllen MD Unavailable Unavailable MadhuAllen MD Unavailable Unavailable MadhuAllen MD Unavailable Unavailable MartinsburgAllen MD Unavailable Unavailable MartinsburgAllen MD Unavailable Unavailable MartinsburgAllen MD Unavailable Unavailable MartinsburgAllen MD Unavailable Unavailable MartinsburgAllen MD Unavailable Unavailable MadhuAllen MD Unavailable Unavailable MartinsburgAllen MD Unavailable Unavailable MadhuAllen MD Unavailable Unavailable MartinsburgAllen MD Unavailable Unavailable MadhuAllen MD Unavailable Unavailable MartinsburgAllen MD Unavailable Unavailable MadhuAllen MD Unavailable Unavailable MadhuAllen MD Unavailable Unavailable MadhuAllen MD Unavailable Unavailable MadhuAllen MD Unavailable Unavailable MartinsburgAllen MD Unavailable Unavailable MadhuAllen MD Unavailable Unavailable MadhuAllen MD Unavailable Unavailable MartinsburgAllen MD Unavailable Unavailable MadhuAllen MD Unavailable Unavailable MartinsburgAllen MD Unavailable Unavailable MadhuAllen MD Unavailable Unavailable MadhuAllen MD Unavailable Unavailable MartinsburgAllen MD Unavailable Unavailable MartinsburgAllen MD Unavailable Unavailable MadhuAllen MD Unavailable Unavailable MartinsburgAllen MD Unavailable Unavailable MadhuAllen MD Unavailable Unavailable MadhuAllen MD Unavailable Unavailable MartinsburgAllen MD Unavailable Unavailable MartinsburgAllen MD Unavailable Unavailable MartinsburgAllen MD Unavailable Unavailable MartinsburgAllen MD Unavailable Unavailable MartinsburgAllen MD Unavailable Unavailable MartinsburgAllen MD Unavailable Unavailable MartinsburgAllen schneider MD Unavailable Unavailable MartinsburgAllen MD Unavailable Unavailable MadhuAllen MD Unavailable Unavailable MartinsburgAllen MD Unavailable Unavailable MadhuAllen MD Unavailable Unavailable MadhuAllen MD Unavailable Unavailable MadhuAllen MD Unavailable Unavailable MartinsburgAllen MD Unavailable Unavailable MadhuAllen MD Unavailable Unavailable MartinsburgAllen MD Unavailable Unavailable MartinsburgAllen MD Unavailable Unavailable MartinsburgAllen MD Unavailable Unavailable MartinsburgAllen MD Unavailable Unavailable MartinsburgAllen MD Unavailable Unavailable MartinsburgAllen MD Unavailable Unavailable ALEJANDRO, AMARA [facility] [employer] PRACTICE PEDIATRICIAN-C Unavailable Unavailable ALEJANDRO, AMARA [employer] PRACTICE PEDIATRICIAN-C Unavailable Unavailable ALEJANDRO, AMARA [employer] PRACTICE PEDIATRICIAN-C Unavailable Unavailable ALEJANDRO, AMARA [employer] PRACTICE PEDIATRICIAN-C Unavailable Unavailable ALEJANDRO, AMARA [employer] PRACTICE PEDIATRICIAN-C Unavailable Unavailable ALEJANDRO, AMARA [employer] PRACTICE PEDIATRICIAN-C Unavailable Unavailable ALEJANDRO, AMARA [employer] PRACTICE PEDIATRICIAN-C Unavailable Unavailable ALEJANDRO, AMARA [employer] PRACTICE PEDIATRICIAN-C Unavailable Unavailable ALEJANDRO, AMARA [employer] PRACTICE PEDIATRICIAN-C Unavailable Unavailable ALEJANDRO, AMARA [employer] PRACTICE PEDIATRICIAN-C Unavailable Unavailable ALEJANDRO, AMARA [employer] PRACTICE PEDIATRICIAN-C Unavailable Unavailable ALEJANDRO, AMARA [employer] PRACTICE PEDIATRICIAN-C Unavailable Unavailable ALEJANDRO, AMARA [employer] PRACTICE PEDIATRICIAN-C Unavailable Unavailable ALEJANDRO, AMARA [employer] PRACTICE PEDIATRICIAN-C Unavailable Unavailable ALEJANDRO, AMARA [employer] PRACTICE PEDIATRICIAN-C Unavailable Unavailable ALEJANDRO, AMARA [employer] PRACTICE PEDIATRICIAN-C Unavailable Unavailable ALEJANDRO, AMARA [employer] PRACTICE PEDIATRICIAN-C Unavailable Unavailable ANTECOL, Edson KING MD Unavailable Unavailable ANTECOL, Edson KING MD Unavailable Unavailable ANTECOL, Edson KING MD Unavailable Unavailable ANTECOL, Edson KING MD Unavailable Unavailable ANTECOL, Edson KING MD Unavailable Unavailable ANTECOL, Edson KING MD Unavailable Unavailable ANTECOL, Edson KING MD Unavailable Unavailable ANTECOL, Edson KING MD Unavailable Unavailable ANTECOL, Edson KING MD Unavailable Unavailable ANTECOL, Edson KING MD Unavailable Unavailable ANTECOL, Edson KING MD Unavailable Unavailable ANTECOL, Edson KING MD Unavailable Unavailable ANTECOL, Edson KING MD Unavailable Unavailable ANTECOL, Edson KING MD Unavailable Unavailable ANTECOL, Edson KING MD Unavailable Unavailable ANTECOL, Edson KING MD Unavailable Unavailable ANTECOL, Edson KING MD Unavailable Unavailable ANTECOL, Edson KING MD Unavailable Unavailable ANTECOL, Edson KING MD Unavailable Unavailable ANTECOL, Edson KING MD Unavailable Unavailable ANTECOL, Edson KING MD Unavailable Unavailable ANTECOL, Edson KING MD Unavailable Unavailable ANTECOL, Edson KING MD Unavailable Unavailable ANTECOL, Edson KING MD Unavailable Unavailable ANTECOL, Edson KING MD Unavailable Unavailable ANTECOL, Edson KING MD Unavailable Unavailable ANTECOL, Edson KING MD Unavailable Unavailable ANTECOL, Edson KING MD Unavailable Unavailable ANTECOL, Edson KING MD Unavailable Unavailable ANTECOL, Edson KING MD Unavailable Unavailable ANTECOL, Edson KING MD Unavailable Unavailable ANTECOL, Edson KING MD Unavailable Unavailable ANTECOL, Edson KING MD Unavailable Unavailable ANTECOL, Edson KING MD Unavailable Unavailable ANTECOL, Edson KING MD Unavailable Unavailable ANTECOL, Edson KING MD Unavailable Unavailable ANTECOL, Edson KING MD Unavailable Unavailable ANTECOL, Edson KING MD Unavailable Unavailable ANTECOL, Edson KING MD Unavailable Unavailable ANTECOL, Edson KING MD Unavailable Unavailable ANTECOL, Edson KING MD Unavailable Unavailable ANTECOL, Edson KING MD Unavailable Unavailable ANTECOL, Edson KING MD Unavailable Unavailable ANTECOL, Edson KING MD Unavailable Unavailable ANTECOL, Edson KING MD Unavailable Unavailable ANTECOL, Edson KING MD Unavailable Unavailable ANTECOL, Edson KING MD Unavailable Unavailable ANTECOL, Edson KING MD Unavailable Unavailable ANTECOL, Edson KING MD Unavailable Unavailable ANTECOL, Edson KING MD Unavailable Unavailable ANTECOL, Edson KING MD Unavailable Unavailable ANTECOL, Edson KING MD Unavailable Unavailable ANTECOL, Edson KING MD Unavailable Unavailable ANTECOL, Edson KING MD Unavailable Unavailable DANISH, A GAETANO DO Unavailable Unavailable DANISH, A GAETANO DO Unavailable Unavailable DANISH, A GAETANO DO Unavailable Unavailable DANISH, A GAETANO DO Unavailable Unavailable DANISH, A GAETANO DO Unavailable Unavailable DANISH, A GAETANO DO Unavailable Unavailable DANISH, A GAETANO DO Unavailable Unavailable DANISH, A GAETANO DO Unavailable Unavailable DANISH, A GAETANO DO Unavailable Unavailable DANISH, A GAETANO DO Unavailable Unavailable DANISH, A GAETANO DO Unavailable Unavailable DANISH, A GAETANO DO Unavailable Unavailable DANISH, A GAETANO DO Unavailable Unavailable DANISH, A GAETANO DO Unavailable Unavailable DANISH, A GAETANO DO Unavailable Unavailable DANISH, A GAETANO DO Unavailable Unavailable DANISH, A GAETANO DO Unavailable Unavailable DANISH, A GAETANO DO Unavailable Unavailable DANISH, A GAETANO DO Unavailable Unavailable DANISH, A GAETANO DO Unavailable Unavailable DANISH, A GAETANO DO Unavailable Unavailable DANISH, A GAETANO DO Unavailable Unavailable Re-disclosure Warning The records that you are about to access may contain information from federally-assisted alcohol or drug abuse programs. If such information is present, then the following federally mandated warning applies: This information has been disclosed to you from records protected by federal confidentiality rules (42 CFR part 2). The federal rules prohibit you from making any further disclosure of this information unless further disclosure is expressly permitted by the written consent of the person to whom it pertains or as otherwise permitted by 42 CFR part 2. A general authorization for the release of medical or other information is NOT sufficient for this purpose. The Federal rules restrict any use of the information to criminally investigate or prosecute any alcohol or drug abuse patient.The records that you are about to access may contain highly sensitive health information, the redisclosure of which is protected by Article 27-F of the [facility] Public Health law. If you continue you may have access to information: Regarding HIV / AIDS; Provided by facilities licensed or operated by the [facility] Office of Mental Health; or Provided by the [facility] Office for People With Developmental Disabilities. If such information is present, then the following [facility] mandated warning applies: This information has been disclosed to you from confidential records which are protected by state law. State law prohibits you from making any further disclosure of this information without the specific written consent of the person to whom it pertains, or as otherwise permitted by law. Any unauthorized further disclosure in violation of state law may result in a fine or fci sentence or both. A general authorization for the release of medical or other information is NOT sufficient authorization for further disc losure. Allergies and Adverse Reactions Type Description Substance Reaction Status Data Source(s ) Propensity to adverse reactions NO KNOWN ALLERGIES NO KNOWN ALLERGIES [facility] Propensity to adverse reactions NO KNOWN ALLERGIES NO KNOWN ALLERGIES [facility] Family History Family Member Name Family Member Gender Family Member Status Date o f Status Description Data Source(s) Unknown Unknown Problem MEDENT ([facility], [facility]) Encounters Encounter Providers Location Date Indications Data Source(s ) Outpatient Attender: Pramod Epperson 1 08/18/2020 08:40:00 AM EDT MEDENT ([facility] ) Outpatient Attender: SHAILA Solomon/Brendan/Ap/Neha ramos 06/07/2021 04:30:00 PM EDT MEDENT ([facility]) [place] [address] [place] [address] 05/11/2021 12:00:00 AM EDT eCW1 ([facility]) Outpatient Attender: Aram Lopez MD Main Office 05/10/2021 09:30:00 AM EDT MEDENT ([facility]) Outpatient Attender: FERNANDO GERARDO MD Main Office 04/04/2021 08:00:00 AM EDT MED[facility] ([id number] 03/12/2021 08:46:33 AM EDT - 03/12/2021 11:59:33 PM EDT [facility] Patient discharged. Outpatient Attender: Pramod Epperson 0 12/12/2020 08:20:00 AM EDT MEDENT ([facility] ) [place] [address] [place] [address] 11/10/2020 12:00:00 AM EDT eCW1 ([facility]) Outpatient Attender: FERNANDO GERARDO MD Main Office 10/19/2020 11:30:00 AM EST MED[facility] ([facility]) <td ID="encounterTypeDescriptionID0">11 Month Follow-Up</td><td>Gaetano Lopez DO</td><td>Fernando Ferrer MD [facility]</td><td>06/23/2020</td><td>9:12AM</td><td>10:57AM</td><td><content ID="encounterDiagnosisID0-0">Cataract Senile Nuclear</content>, <content ID="encounterDiagnosisID0-1">Vitreous Disorders Degeneration</content></td>Outpatient Attender: GAETANO Pittman MD [facility] 06/23/2020 09:12:00 AM EST - 06/23/2020 10:57:00 AM ES T Vitreous Disorders DegenerationCataract Senile Nuclear VIKTORIYA (Fernando Lopez MD [facility]) Vitreous Disorders Degeneration Cataract Senile Nuclear Outpatient Attender: Pramod Epperson 1 09:20:00 AM EDT MEDENT ([facility] ) Outpatient Attender: SHAILA Solomon/Brendan/Ap/Neha ramos 05/19/2020 10:30:00 AM EDT MEDENT ([facility] ) Immunizations Vaccine Date Status Description Data Source(s) COVID-19 VACCINE Moderna 06/24/2021 12:00:00 AM EDT completed NYSIIS Vaccine Series Complete: YESThis Data wa s Submitted to [facility]. pneumococcal polysaccharide PPV23 06/18/2021 09:34:00 AM EDT crystal PEACE ([facility]) This CVX code allows reporting of a vacc ination when formulation is unknown (for example, when recording a Influenza vaccination when noted on a vaccination card) 05/17/2021 02:56:00 PM EDT alverto Bruce ([facility]) COVID-19 VACCINE Moderna 09/12/2020 12:00:00 AM EST completed NYSIIS Vaccine Series Complete: NOThis Data was Submitted to [facility]. Medications Medication Brand Name Start Date Product Form Dose Route Admi nistrative Instructions Pharmacy Instructions Status Indications Reaction Description Data Source(s) 100 mcg/0.5 mL 06/24/2021 12:00:00 AM EDT suspension 0 INJECT DIRECTED (THIRD DOSE) INJECT DIRECTED (THIRD DOSE) SOLD: 06/24/2021 [facility] Alprazolam 0.25 MG Oral Tablet ALPRAZOLAM 05/15/2021 12:00:00 AM EDT tablet 120 TAKE ONE TABLET BY MOUTH FOUR TIMES A DA Y NEEDED FOR ANXIETY MAXIMUM DAILY DOSE = FOUR TABLETS TAKE ONE TABLET BY MOUTH FOUR TIMES A DA Y NEEDED FOR ANXIETY MAXIMUM DAILY DOSE = FOUR TABLETS SOLD: 05/17/2021 [facility] Suprep Bowel Prep Kit Suprep Bowel Prep Kit 05/10/2021 12:00:00 AM EDT active MEDENT ([facility]) Penicillin V Potassium 500 MG Oral Tablet Penicillin V Potas sium 05/10/2021 12:00:00 AM EDT ORAL active M EDENT ([facility]) SUPREP BOWEL PREP KIT 17.5-3.13-1.6 gram SODIUM, POTASSIUM,M AG SULFATES 05/10/2021 12:00:00 AM EDT recon soln 354 USE DIRECTED USE DIRECTED SOLD: 05/11/2021 [facility] Potassium Chloride 8 MEQ Oral Tablet Potassium Chloride ER 0 04/04/2021 12:00:00 AM EDT ORAL active [facility] ([facility]) Alprazolam 0.25 MG Oral Tablet ALPRAZOLAM 03/29/2021 12:00:00 AM EDT tablet 120 TAKE ONE TABLET BY MOUTH FOUR TIMES A DA Y NEEDED FOR ANXIETY MAXIMUM DAILY DOSE = 4 TABLETS TAKE ONE TABLET BY MOUTH FOUR TIMES A DA Y NEEDED FOR ANXIETY MAXIMUM DAILY DOSE = 4 TABLETS SOLD: 03/30/2021 [facility] Alprazolam 0.25 MG Oral Tablet ALPRAZOLAM 02/09/2021 12:00:00 AM EDT tablet 120 TAKE ONE TABLET BY MOUTH FOUR TIMES A DA Y NEEDED FOR ANXIETY, MAXIMUM DAILY DOSE = 4 TAKE ONE TABLET BY MOUTH FOUR TIMES A DA Y NEEDED FOR ANXIETY, MAXIMUM DAILY DOSE = 4 SOLD: 02/11/2021 [facility] Ondansetron 4 MG Disintegrating Oral Tablet ONDANSETRON 01/26/2021 12:00:00 AM EDT tablet,disintegrating 16 TAKE 1 TAB LET BY MOUTH EVERY 6 TO 8 HOURS NEEDED FOR NAUSEA/ VOMITING TAKE 1 TABLET BY MOUTH EVERY 6 TO 8 HOUR S NEEDED FOR NAUSEA/ VOMITING SOLD: 01/26/2021 [facility] Metronidazole 500 MG Oral Tablet METRONIDAZOLE 01/26/2021 12:0 0:00 AM EDT tablet 30 TAKE ONE TABLET BY MOUTH THREE T IMES A DAY TAKE ONE TABLET BY MOUTH THREE TIMES A DAY SOLD: 01/26/2021 [facility] 500 mg 01/26/2021 12:00:00 AM EDT tablet 20 TAKE ONE TABLET BY MOUTH TWICE A DAY TAKE ONE TABLET BY MOUTH TWICE A DAY SOLD: 01/26/2021 [facility] 10 mg 01/26/2021 12:00:00 AM EDT tablet 12 TAKE ONE TABLET BY MOUTH EVERY 6 HOURS NEEDED FOR PAIN TAKE ONE TABLET BY MOUTH EVERY 6 HOURS A S NEEDED FOR PAIN SOLD: 01/26/2021 [facility] 500 mg 01/03/2021 12:00:00 AM EDT tablet 40 STARTING 3 DAYS PRIOR TO SURGERY TAKE ONE TABLET BY MOUTH FOUR TIMES A DAY UNTIL FINISHED STARTING 3 DAYS PRIOR TO SURGERY TAKE ONE TABLET BY MOUTH FOUR TIMES A DAY UNTIL FINISHED SOLD: 03/14/2021 [facility] 0.12 % 01/03/2021 12:00:00 AM EDT mouthwash 473 STARTING 1 DAY BEFORE TREATMENT SWISH 15MLS FOR 1 MINUTE TWO TIMES A DAY THEN SPIT OUT, CONTINUE FOR 1 WEEK STARTING 1 DAY BEFORE TREATMENT SWISH 15 MLS FOR 1 MINUTE TWO TIMES A DAY THEN SPIT OUT, CONTINUE FOR 1 WEEK SOLD: 01/05/2021 [facility] 500 mg 01/03/2021 12:00:00 AM EDT tablet 40 STARTING 3 DAYS PRIOR TO SURGERY TAKE ONE TABLET BY MOUTH FOUR TIMES A DAY UNTIL FINISHED STARTING 3 DAYS PRIOR TO SURGERY TAKE ONE TABLET BY MOUTH FOUR TIMES A DAY UNTIL FINISHED SOLD: 01/26/2021 [facility] 500 mg 01/03/2021 12:00:00 AM EDT tablet 40 STARTING 3 DAYS PRIOR TO SURGERY TAKE ONE TABLET BY MOUTH FOUR TIMES A DAY UNTIL FINISHED STARTING 3 DAYS PRIOR TO SURGERY TAKE ONE TABLET BY MOUTH FOUR TIMES A DAY UNTIL FINISHED SOLD: 01/05/2021 [facility] Alprazolam 0.25 MG Oral Tablet ALPRAZOLAM 12/21/2020 12:00:00 AM EDT tablet 120 TAKE ONE TABLET BY MOUTH FOUR TIMES A DA Y NEEDED FOR ANXIETY MAXIMUM DAILY DOSE = 4 TABLETS TAKE ONE TABLET BY MOUTH FOUR TIMES A DA Y NEEDED FOR ANXIETY MAXIMUM DAILY DOSE = 4 TABLETS SOLD: 12/23/2020 [facility] Colchicine 0.6 MG Oral Capsule Colchicine 12/12/2020 12:00:00 AM EDT ORAL active MEDENT ([facility]) 500 mg 11/24/2020 12:00:00 AM EDT tablet 28 TAKE ONE TABLET BY MOUTH EVERY 6 HOURS UNTIL GONE TAKE ONE TABLET BY MOUTH EVERY 6 HOURS UNTIL GONE SOLD : 11/24/2020 [facility] Alprazolam 0.25 MG Oral Tablet ALPRAZOLAM 11/07/2020 12:00:00 AM EDT tablet 120 TAKE ONE TABLET BY MOUTH FOUR TIMES A DA Y NEEDED ANXIETY, MAXIMUM DAILY DOSE = 4 TAKE ONE TABLET BY MOUTH FOUR TIMES A DA Y NEEDED ANXIETY, MAXIMUM DAILY DOSE = 4 SOLD: 11/08/2020 [facility] Colchicine 0.6 MG Oral Capsule Colchicine 10/19/2020 12:00:00 AM EST ORAL active [facility] ([facility]) Covid-19 vaccine, Unspecified 10/10/2020 12:00:00 AM EST completed [facility] ([facility]) Medication administered onsite 500 mg 09/26/2020 12:00:00 AM EST capsule 8 TAKE FOUR CAPSULES BY MOUTH 1 HOUR PRIOR TO DENTAL PROCEDURE TAKE FOUR CAPSULES BY MOUTH 1 HOUR PRIOR TO DENTAL PROCEDURE SOLD: 11/08/2020 [facility] 500 mg 09/26/2020 12:00:00 AM EST capsule 8 TAKE FOUR CAPSULES BY MOUTH 1 HOUR PRIOR TO DENTAL PROCEDURE TAKE FOUR CAPSULES BY MOUTH 1 HOUR PRIOR TO DENTAL PROCEDURE SOLD: 10/14/2020 [facility] 500 mg 09/26/2020 12:00:00 AM EST capsule 8 TAKE FOUR CAPSULES BY MOUTH 1 HOUR PRIOR TO DENTAL PROCEDURE TAKE FOUR CAPSULES BY MOUTH 1 HOUR PRIOR TO DENTAL PROCEDURE SOLD: 12/31/2020 [facility] 500 mg 09/26/2020 12:00:00 AM EST capsule 8 TAKE FOUR CAPSULES BY MOUTH 1 HOUR PRIOR TO DENTAL PROCEDURE TAKE FOUR CAPSULES BY MOUTH 1 HOUR PRIOR TO DENTAL PROCEDURE SOLD: 09/27/2020 [facility] Alprazolam 0.25 MG Oral Tablet ALPRAZOLAM 09/19/2020 12:00:00 AM EST tablet 120 TAKE ONE TABLET BY MOUTH FOUR TIMES A DA Y NEEDED FOR ANXIETY MAXIMUM DAILY DOSE = 4 TAKE ONE TABLET BY MOUTH FOUR TIMES A DA Y NEEDED FOR ANXIETY MAXIMUM DAILY DOSE = 4 SOLD: 09/21/2020 [facility] Covid-19 vaccine, Unspecified 09/12/2020 12:00:00 AM EST completed [facility]) Medication administered onsite Alprazolam 0.25 MG Oral Tablet ALPRAZOLAM 07/12/2020 12:00:00 AM EST tablet 120 TAKE ONE TABLET BY MOUTH FOUR TIMES A DA Y NEEDED FOR ANXIETY MAXIMUM DAILY DOSE = 4 TABLETS TAKE ONE TABLET BY MOUTH FOUR TIMES A DA Y NEEDED FOR ANXIETY MAXIMUM DAILY DOSE = 4 TABLETS SOLD: 07/14/2020 [facility] Betamethasone 0.0005 MG/MG Topical Ointm ent Betamethasone Dipropionate 0.05% External Ointment Betamethasone Dipropionate 0.05% External Ointment 01/2020 12:00:00 AM EST 1 active betamethasone 0.0005 MG/MG Topical Ointment VIKTORIYA (Fernando Lopez MD [facility]) clopidogrel 75 MG Oral Tablet [Plavix] Plavix 75 MG Or al Tablet Plavix 75 MG Oral Tablet 06/23/2020 12:00:00 AM EST 1 active clopidogrel 75 MG Oral Tablet [Plavix] VIKTORIYA (Fernando Lopez MD [facility]) Aspirin 81 MG Delayed Release Oral Tablet Aspirin 81 2019 12:00:00 AM EDT ORAL active MEDENT ( [facility]) clopidogrel 75 MG Oral Tablet Clopidogrel Bisulfate 06/09/2020 1 2:00:00 AM EDT ORAL active MEDENT ( [facility]) Losartan Potassium 25 MG Oral Tablet Losartan Potassium 12:00:00 AM EDT ORAL active [facility] Alprazolam 0.25 MG Oral Tablet ALPRAZOLAM 05/31/2020 12:00:00 AM EDT tablet 120 TAKE ONE TABLET BY MOUTH FOUR TIMES A DA Y NEEDED FOR ANXIETY MAXIMUM DAILY DOSE = 4 TAKE ONE TABLET BY MOUTH FOUR TIMES A DA Y NEEDED FOR ANXIETY MAXIMUM DAILY DOSE = 4 SOLD: 06/02/2020 [facility] 0.05 % 11/05/2019 12:00:00 AM EDT ointment 45 APPL Y TWO TIMES A DAY APPLY TWO TIMES A DAY SOLD: 06/02/2020 [facility] rivaroxaban 20 MG Oral Tablet [Xarelto] Xarelto 20MG O ral Tablet Xarelto 20MG Oral Tablet 03/19/2019 12:00:00 AM EDT 1 aborte d rivaroxaban 20 MG Oral Tablet [Xarelto] VIKTORIYA (Fernando Lopez MD [facility]) [facility] Mel[facility] 3MG Oral Tablet [facility] Melatonin 3MG Oral Tablet 03/19/2019 12:00:00 AM EDT 1 [facility]orted [facility] Melatonin GR EENWAY (Fernando Lopez MD [facility]) Insurance Providers Payer name Policy type / Coverage type Policy ID Covered republican ID Covered republican's relationship to kitchen Policy Kitchen Plan Information [place] [id number] Self [id number] [place] Commercial [id number] Self [id number] [place] P[place] 302/307 [id number] SP [id number] [place] [id number] Self MEDICARE 4 [id number] 1 [id number] T MEDICARE 4 [id number] A MEDICARE [id number] Self [id number] BCBS Excellus Ppo U/W Commercial [id number] Self V [id number] EXCELLUS H [id number] Self [id number] BCBS Excell[employer] U/W Commercial [id number] Self [id number] BCBS Excell[place] U/W Commercial [id number] Self [id number] BCBS [place] U/W Commercial [id number] [id number] Self [id number] BCBS [place] U/W Commercial [id number] 2..1.113 [id number] Self [id number] BS [place] Medigap Part B [id number] Self [id number] [id number] [place] Medigap Part B [id number] Self [id number] [id number] [place] Medigap Part B [id number] Self [id number] [id number] BCBS Excell[employer] U/W Commercial [id number] 2..1.113 [id number] Self [id number] BCBS Excell[employer] U/W Commercial [id number] [id number] Self [id number] BCBS Excell[employer] Ppo U/W Commercial [id number] Self V [id number] BCBS Excellus Ppo U/W Commercial [id number] Self V [id number] BCBS Excellus Ppo U/W Commercial [id number] Self V [id number] [place] Tr[place] Commercial [id number] Self [id number] [id number] BS [place] Trad/[place] Commercial [id number] Self [id number] BCBS Excell[place] Ppo U/W Commercial [id number] Self BC/[place] [id number] Self BC EXC PLANS 1 [id number] 1 [id number] [place] PPO 302/307 [id number] SP [id number] BCBS of [facility] Individual Policy 0 [id number] Self 0 BCBS of [facility] Individual Policy 0 [id number] Self 0 EXCELLUS HMO [id number] Self [id number] BCBS OF [place] 306/806 [id number] SP [id number] MEDICARE BLUE PPO 306 [id number] SP [id number] BCBS [place] O [id number] S [id number] [place] PPO 302/307 [id number] SP [id number] MEDICARE BLUE PPO 306 [id number] SP [id number] BCBS OF [place] 306/806 [id number] SP [id number] BCBS/Excellus Commercial [id number] Self [id number] BCBS/Excellus Commercial [id number] Self [id number] BS Of [place] Commercial [id number] Self BCBS OF [place] 306/806 [id number] SP [id number] BCBS/Excellus Commercial [id number] Self [id number] SELF PAY 2 UNAVAILABLE 1 UNAVAILA BLE BCBS/Excellus Commercial [id number] Self [id number] Problems, Conditions, and Diagnoses Code Display Name Description Problem Type Effective Dates Data Source(s) Follow-up Follow-up Diagnosis 03/12/2021 08:46:33 AM ED T [facility] Z95.818 Presence of other cardiac implants and g rafts Presence of other cardiac implants and grafts Diagnosis 03/12/2021 08:46:33 AM EDT [facility] Z85.828 [id number] Hx of basal cell carcinoma Problem 12:00:00 AM EDT eC ([facility]) Z85.89 [id number] Hx of squamous cell carcinoma Problem 05/09/2021 12:00:00 AM EDT [facility] ([facility]) Z01.810 Preoperative cardiovascular examination Preoperative cardiovascular examination Problem 10/19/2020 12:00:00 AM EST [facility] ([facility]) I70.0 Atherosclerosis of aorta Atherosclerosis of aorta Prob kip 10/19/2020 12:00:00 AM EST [facility] ([facility]) Surgeries/Procedures Procedure Description Date Indications Data Source(s) OFFICE OUTPATIENT VISIT 25 MINUTES 06/18/2021 12:00:00 AM EDT [facility] ([facility]) OFFICE OUTPATIENT VISIT 15 MINUTES 06/07/2021 12:00:00 AM EDT [facility] ([facility], ) External ECG Rec>48HR<7D Recording 05/15/2021 12:00:00 AM EDT [facility] ([facility]) External ECG Rec>48HR<7D Review & Interpretation 05/15 12:00:00 AM EDT [facility] ([facility]) OFFICE OUTPATIENT NEW 30 MINUTES 05/10/2021 12:00:00 A M EDT [facility] ([facility]) ECG ROUTINE ECG W/LEAST 12 LDS W/I&R 04/04/2021 12:00: 00 AM EDT [facility] ([facility]) Arterial Pressure Waveform Analysis For Assessment Of Centra l Art 04/04/2021 12:00:00 AM EDT [facility] ([facility]) OFFICE OUTPATIENT VISIT 25 MINUTES 04/04/2021 12:00:00 AM EDT [facility] ([facility]) OFFICE OUTPATIENT VISIT 25 MINUTES 12/12/2020 12:00:00 AM EDT [facility] ECG ROUTINE ECG W/LEAST 12 LDS W/I&R 10/19/2020 12:00: 00 AM EST [facility] ([facility]) Arterial Pressure Waveform Analysis For Assessment Of Centra l Art 10/19/2020 12:00:00 AM EST [facility] ([facility]) OFFICE OUTPATIENT NEW 45 MINUTES 10/19/2020 12:00:00 A M EST [facility] ([facility]) Intermediate Eye Exam Established Patient Intermediate Eye Exam Established Patient 06/23/2020 12:00:00 AM EST VIKTORIYA (Dre id Vanessa Lopez MD [facility]) Results ID Date Data Source [id number] 06/29/2021 09:35:00 AM EST [facility] ([facility]) Name Value Range Interpretation Code Description Data Svetlana rce(s) Supporting Document(s) Coronavirus 2019 Nasopharygeal Laboratory test result [facility] ASSAY INFORMATION: Real Time RT-PCR NOTE: The COVID-19 assay has been cleared by the U.S. Food and Drug Administration under the Emergency Use Authorization (EUA). [employer] and [employer] are designated as high complexity laboratories by the Clinical Laboratory Improvement Amendments of 1988(CLIA) and are qualified to perform this test. Not Detected ID Date Data Source [id number] 2021 07:40:00 AM EDT [facility]) Name Value Range Interpretation Code Description Data Svetlana rce(s) Supporting Document(s) Prostate specific Ag [Mass/volume] in Serum or Plasma 0.83 ng/mL [facility] ([facility]) This assay was performed on the Siemens Dimension EXL using the B- Galactosidase/CPRG methodology and should not be compared interchangeably with other methods. The PSA should not be used alone as a screening test for the presence or absence of malignant disease. ID Date Data Source [id number] 2021 07:40:00 AM EDT [facility]) Name Value Range Interpretation Code Description Data Svetlana rce(s) Supporting Document(s) Cholesterol [Mass/volume] in Serum or Plasma 114 mg/dL 131-200 [facility] ([facility]) Triglyceride [Mass/volume] in Serum or Plasma 32 mg/dL 30-150 [facility] ([facility]) Cholesterol in HDL [Mass/volume] in Serum or Plasma 61 mg/dL 35-60 [facility] ([facility]) Cholesterol in LDL [Mass/volume] in Serum or Plasma by calcu lation 47 CALC 50-159 [facility] ([facility]) ID Date Data Source [id number] 2021 07:40:00 AM EDT [facility]) Name Value Range Interpretation Code Description Data Svetlana rce(s) Supporting Document(s) Glucose [Mass/volume] in Serum or Plasma 104 mg/dL 74-99 [facility] ([facility]) 100-125 mg/dL PRE-DIABETES/FASTING >126 mg/dL DIABETES/FASTING Urea nitrogen [Mass/volume] in Serum or Plasma 14 mg/dL 7-18 [facility] ([facility]) Creatinine 1.1 mg/dL 0.6-1.3 [facility] Sodium [Moles/volume] in Serum or Plasma 139 meq/L 136-145 [facility] ([facility]) Potassium [Moles/volume] in Serum or Plasma 4.5 meq/L 3.5-5.1 [facility] ([facility]) Chloride [Moles/volume] in Serum or Plasma 106 meq/L 98-107 [facility] ([facility]) Carbon dioxide, total [Moles/volume] in Serum or Plasma 30 meq/L 21 -32 [facility] ([facility]) Calcium [Mass/volume] in Serum or Plasma 9.0 mg/dL 8.5-10.1 [facility] ([facility]) Alkaline phosphatase isoenzyme [Units/volume] in Serum or Pl asma 86 mg/dL 46-116 [facility] ([facility]) Total Bilirubin 0.5 mg/dL 0.2-1.0 [facility] ([facility]) Aspartate aminotransferase [Enzymatic activity/volume] in Serum or Plasma 20 U/L 15-37 [facility] ([facility] ) Alanine aminotransferase [Enzymatic activity/volume] in Seru m or Plasma 38 U/L 12-78 [facility] ([facility]) Albumin [Mass/volume] in Serum or Plasma 3.5 g/dL 3.4-5.0 [facility] ([facility]) Proteinase 3 Ab [Units/volume] in Serum 6.8 g/dL 6.4-8.2 [facility] ([facility]) A/G Ratio 1.06 CALC 1.00-1.90 [facility] ([facility]) Glomerular filtration rate/1.73 sq M pre dicted among non-blacks [Volume Rate/Area] in Serum or Plasma by Creatinine-based formula (MDRD) Laboratory test result [facility] ([facility] ) Glomerular filtration rate/1.73 sq M pre dicted among blacks [Volume Rate/Area] in Serum or Plasma by Creatinine-based formula (MDRD) Laboratory test result [facility] ([facility]) <content>CHRONIC KIDNEY DISEASE STAGING PER NKF</content>
<content></content>
<content>STAGE I & II GFR >= 60 NORMAL TO MILDLY DECREASED</content>
<content>STAGE III GFR 30-59 MODERATELY DECREASED</content>
<content>STAGE IV GFR 15-29 SEVERELY DECREASED</content>
<content>STAGE V GFR <15 VERY LITTLE GFR LEFT</content>
<content>ESRD GFR <15 ON PAINTER ORDNANCE</content>
<content></content> ID Date Data Source [id number] 2021 07:40:00 AM EDT [facility] ([facility]) Name Value Range Interpretation Code Description Data Svetlana rce(s) Supporting Document(s) Leukocytes [#/volume] in Blood by Automated count 7.3 x10*3/UL 4.1-10 .9 [facility] ([facility]) Erythrocytes [#/volume] in Blood by Automated count 4.53 x10*6/UL 4.2 0-6.30 [facility] ([facility]) Hemoglobin [Mass/volume] in Blood 14.8 g/dL 12.0-18.0 [facility] ([facility]) Hematocrit [Volume Fraction] of Blood by Automated count 42.0 % 3 7.0-51.0 [facility] ([facility]) MCV 92.6 fL 80.0-97.0 [facility]) MCH 32.7 pg 26.0-32.0 [facility] ([facility]) MCHC 35.3 g/dL 31.0-38.0 [facility] ([place]) Erythrocyte distribution width [Ratio] by Automated count 13.7 % 11.6-13.7 [facility] ([facility]) Platelets [#/volume] in Blood by Automated count 233 x10*3/UL 140-440 [facility] ([facility]) MPV 7.5 FL 7.8-11.0 [facility] ([place] [facility]) Lymph % 41.3 % 10.0-58.5 [facility] ([facility]) Mid % 8.7 % 1.7-9.3 [facility] ([place] [facility]) Lymph # 3.0 x10*3/UL 0.6-4.1 [facility] ([facility]) Neut % 50.0 % 37.0-92.0 [facility] ([place] [facility]) Mid # 0.7 x10*3/UL 0.1-0.6 [facility] ([facility]) Neut # 3.6 x10*3/UL 2.0-7.8 [facility] ([facility]) ID Date Data Source [id number] 05/11/2021 09:00:00 AM EDT [facility] Name Value Range Interpretation Code Description Data Svetlana rce(s) Supporting Document(s) SARS-CoV-2 (COVID-19) RNA [Presence] in Respiratory specimen by VINITA with probe detection Not Detected [facility] This lab was ordered by [facility] and reported by [facility]. ID Date Data Source [id number] 04/08/2021 09:31:00 AM EDT [facility] ([facility]) Name Value Range Interpretation Code Description Data Svetlana rce(s) Supporting Document(s) Triglycerides Level 39 mg/dL [facility] Cholesterol Level 119 mg/dL [facility] ([facility]) HDL Cholesterol 68 mg/dL [facility] ([facility]) Non-HDL-C 51 mg/dL [facility] ([place] [facility]) LDL Cholesterol 43 mg/dL [facility] ([facility]) Cholesterol Risk Ratio 1.750 [facility] ([facility]) ID Date Data Source [id number] 04/08/2021 09:31:00 AM EDT [facility] ([facility]) Name Value Range Interpretation Code Description Data Svetlana rce(s) Supporting Document(s) Triglycerides Level 39 mg/dL [facility] ([facility]) HDL Cholesterol 68 mg/dL [facility] ([facility]) LDL Cholesterol 43 mg/dL [facility] ([facility]) Cholesterol Level 119 mg/dL [facility] ([facility]) Cholesterol Risk Ratio 1.750 [facility] ([facility]) Non-HDL-C 51 mg/dL [facility] ([facility]) ID Date Data Source [id number] 01/26/2021 11:13:00 AM EDT [facility] ([facility]) Name Value Range Interpretation Code Description Data Svetlana rce(s) Supporting Document(s) Red Blood Count 4.68 4.30-6.10 [facility] ([facility]) White Blood Count 14.5 4.0-10.0 [facility] ([facility]) Platelets 243 150-450 [facility] ([facility]) Hematocrit 44.0 [facility] ([facility]) Hemoglobin 14.7 [facility] ([facility]iology [facility]) ID Date Data Source [id number] 01/26/2021 11:13:00 AM EDT [facility] ([facility]) Name Value Range Interpretation Code Description Data Svetlana rce(s) Supporting Document(s) Troponin Laboratory test result [facility] ([facility]) Lipoprotein lipase [Enzymatic activity/volume] in Serum or Plasma 74 [facility] ([facility] [facility]) ID Date Data Source [id number] 01/26/2021 11:13:00 AM EDT [facility] ([facility]) Name Value Range Interpretation Code Description Data Svetlana rce(s) Supporting Document(s) Creatine kinase [Enzymatic activity/volume] in Serum or Plasma 131 [facility] ([facility] [facility]) CPK-MB 5.0 [facility] ([facility]) ID Date Data Source [id number] 01/26/2021 11:13:00 AM EDT [facility] ([facility]) Name Value Range Interpretation Code Description Data Svetlana rce(s) Supporting Document(s) Alanine aminotransferase [Enzymatic activity/volume] in Serum or Pl asma 34 [facility] ([facility]) Albumin [Mass/volume] in Serum or Plasma 3.6 [facility] ([facility]) Calcium [Mass/volume] in Serum or Plasma 8.7 [facility] ([facility]) Chloride [Moles/volume] in Serum or Plasma 106 [facility] ([facility] [facility]) Alkaline phosphatase [Enzymatic activity/volume] in Serum or Plasma 9 7 [facility] ([facility]) Carbon dioxide, total [Moles/volume] in Serum or Plasma 27 [facility] ([facility]) Potassium [Moles/volume] in Serum or Plasma 3.7 [facility] ([facility]) Sodium 138 [facility] ([facility]) Protein [Mass/volume] in Serum or Plasma 6.8 [facility] ([facility]) Urea nitrogen [Mass/volume] in Serum or Plasma 11 [facility] ([facility]) Aspartate aminotransferase [Enzymatic activity/volume] in Serum or Plasma 18 [facility] ([facility]) Glucose 102 83-110 [facility] ([facility]) Creatinine For GFR 0.93 [facility] ([facility]) ID Date Data Source [id number] 01/26/2021 08:57:00 AM EDT [facility] ([facility]) Name Value Range Interpretation Code Description Data Svetlana rce(s) Supporting Document(s) Lipoprotein lipase [Enzymatic activity/volume] in Serum or Plasm a 74 U/L 73-393 [facility] ([facility] ID Date Data Source [id number] 01/26/2021 08:57:00 AM EDT [facility] ([facility] Name Value Range Interpretation Code Description Data Svetlana rce(s) Supporting Document(s) Glucose, Fasting 102 mg/dL 70-100 [facility] ([facility] Creatinine For GFR 0.93 mg/dL 0.70-1.30 [facility] ([facility] Blood Urea Nitrogen 11 mg/dL 7-18 [facility] ([facility]) Glomerular Filtration Rate Laboratory test result [facility] <content>Units are mL/min/1.73 m2</content>
<content></content>
<content>Chronic Kidney Disease Staging per NKF:</content>
<content></content>
<content>Stage I & II GFR >=60 Normal to Mildly Decreased</content>
<content>Stage III GFR 30-59 Moderately Decreased</content>
<content>Stage IV GFR 15-29 Severely Decreased</content>
<content>Stage V GFR <15 Very Little GFR Left</content>
<content>ESRD GFR <15 on PAINTER ORDNANCE</content>
<content></content> Sodium Level 138 meq/L 136-145 [facility] ([facility]) Potassium Serum 3.7 meq/L 3.5-5.1 [facility] ([facility]) Chloride Level 106 meq/L 98-107 [facility] ([facility]) Carbon Dioxide Level 27 meq/L 21-32 [facility] ([facility]) Anion Gap 5 meq/L 8-16 [facility] ([facility]) Calcium Level 8.7 mg/dL 8.8-10.2 [facility] ([facility]) ID Date Data Source [id number] 01/26/2021 08:57:00 AM EDT [facility] ([facility]) Name Value Range Interpretation Code Description Data Svetlana rce(s) Supporting Document(s) Ast/Sgot 18 U/L 7-37 [facility] ([facility]) Alt/SGPT 34 U/L 12-78 [facility] ([facility]) Bilirubin,Total 0.8 mg/dL 0.2-1.0 [facility] ([facility]) Alkaline Phosphatase 97 U/L 45-117 [facility] ([facility]) Bilirubin,Direct 0.3 mg/dL 0.0-0.2 [facility] ([facility]) Total Protein 6.8 GM/DL 6.4-8.2 [facility] ([facility]) Albumin 3.6 GM/DL 3.2-5.2 [facility] ([facility]) Albumin/Globulin Ratio 1.1 [facility] ([facility]) ID Date Data Source [id number] 01/26/2021 08:57:00 AM EDT [facility] ([facility]) Name Value Range Interpretation Code Description Data Svetlana rce(s) Supporting Document(s) MB/CK Relative Index 3.82 [facility] ([facility]) <content>DIAGNOSIS CRITERIA</content>
<content>MMB ng/ml Relative Index (RI)</content>
<content>NON-AMI < or = 5 N/A</content>
<content>CHILDS ZONE > 5 < or = 4</content>
<content>AMI > 5 > 4</content>
<content></content> CK-MB Value Mass 5.0 ng/mL [facility] ([facility]) CPK Creatine Phosphokinase 131 U/L 39-308 [facility] ([facility]) Troponin I Laboratory test result [facility]) <content>Troponin I Reference Interval f or Siemens [place] LOCI:</content>
<content></content>
<content>99th Percentile= 0.00-0.045 ng/ml</content>
<content></content>
<content>Risk Stratification:</content>
<content><= 0.10 ng/ml Decreased Risk for Adverse Clinical</content>
<content>Events.</content>
<content>0.10-1.50 ng/ml Increased Risk for Adverse Clinical</content>
<content>Events. Evaluation of additional</content>
<content>criterion and/or repeat testing in 2-6</content>
<content>hours is suggested to rule out myocardial</content>
<content>damage.</content>
<content>>= 1.50 ng/ml Indicative of Myocardial Injury.</content>
<content></content> ID Date Data Source [id number] 01/26/2021 08:57:00 AM EDT [facility]) Name Value Range Interpretation Code Description Data Svetlana rce(s) Supporting Document(s) Lactate [Mass/volume] in Serum or Plasma 1.2 mmol/L 0.4-2.0 [facility] ([facility]) Y/N query for Sepsis Lactate Rule: Y ID Date Data Source [id number] 01/26/2021 08:57:00 AM EDT [facility]) Name Value Range Interpretation Code Description Data Svetlana rce(s) Supporting Document(s) Appearance, Urine RFX Laboratory test result [facility] ([facility] Color, Urine RFX Laboratory test result [facility] ([facility]) Specific [place] Ur Auto RFX 1.005 1.002-1.035 [facility] ([facility] PH,Urine RFX 7.0 units 5.0-9.0 [facility] ([facility]) Glucose, Urine (Ua) Auto RFX Laboratory test result [facility] ([facility]) Protein, Urine Auto RFX Laboratory test result [facility] ([facility]) Ketone, Urine Auto RFX [facility] Urobilinogen, Urine Auto RFX 0.2 mg/dL 0.0-2.0 [facility] ([facility]) Bilirubin, Urine Auto RFX Laboratory test result [facility] ([facility]) Nitrite, Urine Auto RFX Laboratory test result [facility] ([facility]) Leukocyte Esterase Ur Auto RFX Laboratory test result [facility] ([facility]) Blood, Urine Blood RFX Laboratory test result [facility] ([facility]) WBC, Urine Auto RFX 1 /HPF 0-3 [facility] ([facility]) RBC, Urine Auto RFX 2 /HPF 0-3 [facility] ([facility]) Bacteria, Urine Auto RFX [facility] Hyaline Cast, Urine Auto RFX 0 /LPF 0-1 M [facility] ([facility]) Squam Epithelial Cell Ur Aurfx 0 /HPF 0-6 [facility] ([facility]) ID Date Data Source [id number] 01/26/2021 08:57:00 AM EDT [facility] ([facility]) Name Value Range Interpretation Code Description Data Svetlana rce(s) Supporting Document(s) White Blood Count 14.5 10 4.0-10.0 [facility] ([facility]) Red Blood Count 4.68 10 4.30-6.10 [facility] ([facility]) Hematocrit 44.0 % 42.0-52.0 [facility] ([facility]) Mean Corpuscular Volume 94.0 fl 80.0-96.0 [facility] ([facility]) Hemoglobin 14.7 g/dL 13.5-17.5 [facility] ([facility]) Mean Corpuscular Hemoglobin 31.4 pg 27.0-33.0 [facility] ([facility]) Mean Corpuscular HGB Conc 33.4 g/dL 32.0-36.5 [facility] Platelet Count, Automated 243 10 150-450 [facility] NT ([facility]) Red Cell Distribution Width 12.6 % 11.5-14.5 [place] [facility] ([facility]) Lymph % 16.9 % 24.0-44.0 [facility]) Neutrophils % 73.3 % 36.0-66.0 [facility] ([facility]) Eos % 0.4 % 0.0-3.0 [facility] [facility] [facility]) [place] % 8.6 % 2.0-8.0 [facility] [facility]) Baso % 0.1 % 0.0-1.0 [facility] ([place] [facility]) Nucleated Red Blood Cell % 0.0 % 0-0 MED E[facility] ([facility]) Immature Granulocyte % 0.7 % 0-3.0 [facility] ([facility]) Lymph # 2.5 10 1.5-5.0 [facility] [facility]) Neutrophils # 10.6 10 1.5-8.5 [facility] ([facility]) [place] # 1.3 10 0.0-0.8 [facility] [facility]) Eos # 0.1 10 0.0-0.5 [facility] ([place] [facility]) Baso # 0.0 10 0.0-0.2 [facility] [facility] ID Date Data Source [id number] 12/11/2020 07:46:00 AM EDT [facility] ([facility]) Name Value Range Interpretation Code Description Data Svetlana rce(s) Supporting Document(s) Cholesterol [Mass/volume] in Serum or Plasma 110 mg/dL 131-200 [facility] ([facility]) Triglyceride [Mass/volume] in Serum or Plasma 37 mg/dL 30-150 [facility] ([facility]) Cholesterol in HDL [Mass/volume] in Serum or Plasma 69 mg/dL 35-60 [facility] ([facility]) Cholesterol in LDL [Mass/volume] in Serum or Plasma by calcu lation 34 CALC 50-159 [facility] ([facility]) ID Date Data Source [id number] 12/11/2020 07:46:00 AM EDT [facility] ([facility]) Name Value Range Interpretation Code Description Data Svetlana rce(s) Supporting Document(s) Glucose [Mass/volume] in Serum or Plasma 99 mg/dL 74-99 [facility] ([facility]) 100-125 mg/dL PRE-DIABETES/FASTING >126 mg/dL DIABETES/FASTING Creatinine 1.1 mg/dL 0.6-1.3 MED[facility] ([facility]) Urea nitrogen [Mass/volume] in Serum or Plasma 22 mg/dL 7-18 [facility] ([facility]) Sodium [Moles/volume] in Serum or Plasma 142 meq/L 136-145 [facility] ([facility]) Potassium [Moles/volume] in Serum or Plasma 4.1 meq/L 3.5-5.1 [facility] ([facility]) Chloride [Moles/volume] in Serum or Plasma 106 meq/L 98-107 [facility] ([facility]) Carbon dioxide, total [Moles/volume] in Serum or Plasma 27 meq/L 21 -32 [facility] ([facility]) Calcium [Mass/volume] in Serum or Plasma 8.6 mg/dL 8.5-10.1 [facility] ([facility]) Alkaline phosphatase isoenzyme [Units/volume] in Serum or Pl asma 89 mg/dL 46-116 [facility] ([facility]) Total Bilirubin 0.6 mg/dL 0.2-1.0 MED[facility] ([facility]) Aspartate aminotransferase [Enzymatic activity/volume] in Serum or Plasma 30 U/L 15-37 [facility] ([facility] ) Alanine aminotransferase [Enzymatic activity/volume] in Seru m or Plasma 38 U/L 12-78 [facility] ([facility]) Albumin [Mass/volume] in Serum or Plasma 3.6 g/dL 3.4-5.0 [facility] ([facility]) Proteinase 3 Ab [Units/volume] in Serum 6.5 g/dL 6.4-8.2 [facility] ([facility]) A/G Ratio 1.24 CALC 1.00-1.90 [facility] ([place] [facility]) Glomerular filtration rate/1.73 sq M pre dicted among non-blacks [Volume Rate/Area] in Serum or Plasma by Creatinine-based formula (MDRD) Laboratory test result [facility] ([facility] [facility] Glomerular filtration rate/1.73 sq M pre dicted among blacks [Volume Rate/Area] in Serum or Plasma by Creatinine-based formula (MDRD) Laboratory test result [facility] <content>CHRONIC KIDNEY DISEASE STAGING PER NKF</content>
<content></content>
<content>STAGE I & II GFR >= 60 NORMAL TO MILDLY DECREASED</content>
<content>STAGE III GFR 30-59 MODERATELY DECREASED</content>
<content>STAGE IV GFR 15-29 SEVERELY DECREASED</content>
<content>STAGE V GFR <15 VERY LITTLE GFR LEFT</content>
<content>ESRD GFR <15 ON PAINTER ORDNANCE</content>
<content></content> ID Date Data Source [id number] 12/11/2020 07:46:00 AM EDT [facility]) Name Value Range Interpretation Code Description Data Svetlana rce(s) Supporting Document(s) Hemoglobin A1c/Hemoglobin.total in Blood 5.7 % [facility] Lab Result Notes: Pre-Diabetes 5.7 - 6.4 % Diabetes = or > 6.5% Glucose mean value [Mass/volume] in Blood Estimated fr om glycated hemoglobin 117 mg/dL 60-110 [facility] ) ID Date Data Source [id number] 12/11/2020 07:46:00 AM EDT [facility]) Name Value Range Interpretation Code Description Data Svetlana rce(s) Supporting Document(s) Leukocytes [#/volume] in Blood by Automated count 7.0 x10*3/UL 4.1-10 .9 [facility] ([place] Hemoglobin [Mass/volume] in Blood 14.2 g/dL 12.0-18.0 [facility] ([place] [facility] Erythrocytes [#/volume] in Blood by Automated count 4.48 x10*6/UL 4.2 0-6.30 [facility] ([place] [facility] MCV 92.8 fL 80.0-97.0 [facility] ([facility]) Hematocrit [Volume Fraction] of Blood by Automated count 41.6 % 3 7.0-51.0 [facility] ([place] [facility] MCH 31.7 pg 26.0-32.0 [facility] ([facility]) MCHC 34.1 g/dL 31.0-38.0 [facility] ([facility]) Platelets [#/volume] in Blood by Automated count 239 x10*3/UL 140-440 [facility] ([place] [facility] Erythrocyte distribution width [Ratio] by Automated count 13.1 % 11.6-13.7 [facility] ([place] [facility] MPV 7.5 FL 7.8-11.0 [facility] ([facility]) Mid % 7.6 % 1.7-9.3 [facility] ([facility]) Lymph % 35.0 % 10.0-58.5 [facility] ([facility]) Lymph # 2.4 x10*3/UL 0.6-4.1 [facility] ([facility]) Neut % 57.4 % 37.0-92.0 [facility] ([facility]) Mid # 0.6 x10*3/UL 0.1-0.6 [facility] ([facility]) Neut # 4.0 x10*3/UL 2.0-7.8 [facility] ([facility]) ID Date Data Source [id number] 12/11/2020 07:46:00 AM EDT [facility] ([facility] Name Value Range Interpretation Code Description Data Svetlana rce(s) Supporting Document(s) Hemoglobin A1c/Hemoglobin.total in Blood Laboratory test result [facility] ([place] [facility] ID Date Data Source [id number] 06/08/2020 07:42:00 AM EDT [facility] ([facility]) Name Value Range Interpretation Code Description Data Svetlana rce(s) Supporting Document(s) Prostate specific Ag [Mass/volume] in Serum or Plasma 0.86 ng/mL [facility] ([facility]) This assay was performed on the Siemens Dimension EXL using the B- Galactosidase/CPRG methodology and should not be compared interchangeably with other methods. The PSA should not be used alone as a screening test for the presence or absence of malignant disease. ID Date Data Source [id number] 06/08/2020 07:42:00 AM EDT [facility] ([facility] Name Value Range Interpretation Code Description Data Svetlana rce(s) Supporting Document(s) Prostate specific Ag [Mass/volume] in Serum or Plasma 0.86 ng/mL [facility] ([place] [facility] This assay was performed on the Siemens Dimension EXL using the B- Galactosidase/CPRG methodology and should not be compared interchangeably with other methods. The PSA should not be used alone as a screening test for the presence or absence of malignant disease. ID Date Data Source [id number] 06/08/2020 07:41:00 AM EDT [facility] ([facility]) Name Value Range Interpretation Code Description Data Svetlana rce(s) Supporting Document(s) Cholesterol [Mass/volume] in Serum or Plasma 123 mg/dL 131-200 [facility] ([facility]) Triglyceride [Mass/volume] in Serum or Plasma 35 mg/dL 30-150 [facility] ([facility]) Cholesterol in HDL [Mass/volume] in Serum or Plasma 62 mg/dL 35-60 [facility] ([facility]) Cholesterol in LDL [Mass/volume] in Serum or Plasma by calcu lation 54 CALC 50-159 [facility] ([facility]) ID Date Data Source [id number] 06/08/2020 07:41:00 AM EDT [facility] ([facility]) Name Value Range Interpretation Code Description Data Svetlana rce(s) Supporting Document(s) Creatinine 1.3 mg/dL 0.6-1.3 [facility] ([facility]) Urea nitrogen [Mass/volume] in Serum or Plasma 17 mg/dL 7-18 [facility] ([facility]) Glucose [Mass/volume] in Serum or Plasma 110 mg/dL 74-99 [facility] ([facility]) 100-125 mg/dL PRE-DIABETES/FASTING >126 mg/dL DIABETES/FASTING Sodium [Moles/volume] in Serum or Plasma 140 meq/L 136-145 [facility] ([facility]) Chloride [Moles/volume] in Serum or Plasma 104 meq/L 98-107 [facility] ([facility]) Potassium [Moles/volume] in Serum or Plasma 4.4 meq/L 3.5-5.1 [facility] ([facility]) Alkaline phosphatase isoenzyme [Units/volume] in Serum or Pl asma 85 mg/dL 46-116 [facility] ([facility]) Calcium [Mass/volume] in Serum or Plasma 8.6 mg/dL 8.5-10.1 [facility] ([facility]) Carbon dioxide, total [Moles/volume] in Serum or Plasma 30 meq/L 21 -32 [facility] ([facility]) Aspartate aminotransferase [Enzymatic activity/volume] in Serum or Plasma 16 U/L 15-37 [facility] ([facility]) Total Bilirubin 0.6 mg/dL 0.2-1.0 [facility] ([facility]) Alanine aminotransferase [Enzymatic activity/volume] in Seru m or Plasma 27 U/L 12-78 [facility] ([facility]) Albumin [Mass/volume] in Serum or Plasma 3.5 g/dL 3.4-5.0 [facility] ([facility]) Proteinase 3 Ab [Units/volume] in Serum 6.6 g/dL 6.4-8.2 [facility] ([facility]) A/G Ratio 1.13 CALC 1.00-1.90 [facility] ([facility] Glomerular filtration rate/1.73 sq M pre dicted among non-blacks [Volume Rate/Area] in Serum or Plasma by Creatinine-based formula (MDRD) 54 mL/min [facility] ([facility]) Glomerular filtration rate/1.73 sq M pre dicted among blacks [Volume Rate/Area] in Serum or Plasma by Creatinine-based formula (MDRD) Laboratory test result [facility] ([facility]) <content>CHRONIC KIDNEY DISEASE STAGING PER NKF</content>
<content></content>
<content>STAGE I & II GFR >= 60 NORMAL TO MILDLY DECREASED</content>
<content>STAGE III GFR 30-59 MODERATELY DECREASED</content>
<content>STAGE IV GFR 15-29 SEVERELY DECREASED</content>
<content>STAGE V GFR <15 VERY LITTLE GFR LEFT</content>
<content>ESRD GFR <15 ON PAINTER ORDNANCE</content>
<content></content>
<content></content> ID Date Data Source [id number] 06/08/2020 07:41:00 AM EDT [facility] ([facility]) Name Value Range Interpretation Code Description Data Svetlana rce(s) Supporting Document(s) Hemoglobin A1c/Hemoglobin.total in Blood 5.8 % [facility] ([facility]) Lab Result Notes: Pre-Diabetes 5.7 - 6.4 % Diabetes = or > 6.5% Glucose mean value [Mass/volume] in Blood Estimated fr om glycated hemoglobin 120 mg/dL 60-110 [facility] ([facility]) ID Date Data Source [id number] 06/08/2020 07:41:00 AM EDT [facility] ([facility] Name Value Range Interpretation Code Description Data Svetlana rce(s) Supporting Document(s) Triglyceride [Mass/volume] in Serum or Plasma 35 mg/dL 30-150 [facility] ([facility]) Cholesterol in HDL [Mass/volume] in Serum or Plasma 62 mg/dL 35-60 [facility] ([facility]) Cholesterol [Mass/volume] in Serum or Plasma 123 mg/dL 131-200 [facility] ([facility]) Cholesterol in LDL [Mass/volume] in Serum or Plasma by calcu lation 54 CALC 50-159 [facility] ([place] [facility] ID Date Data Source [id number] 06/08/2020 07:41:00 AM EDT [facility] ([facility]) Name Value Range Interpretation Code Description Data Svetlana rce(s) Supporting Document(s) Glucose [Mass/volume] in Serum or Plasma 110 mg/dL 74-99 [facility] ([facility]) 100-125 mg/dL PRE-DIABETES/FASTING >126 mg/dL DIABETES/FASTING Urea nitrogen [Mass/volume] in Serum or Plasma 17 mg/dL 7-18 [facility] ([facility]) Creatinine 1.3 mg/dL 0.6-1.3 [facility] ([facility]) Sodium [Moles/volume] in Serum or Plasma 140 meq/L 136-145 [facility] ([facility]) Carbon dioxide, total [Moles/volume] in Serum or Plasma 30 meq/L 21 -32 [facility] ([facility]) Chloride [Moles/volume] in Serum or Plasma 104 meq/L 98-107 [facility] ([facility]) Potassium [Moles/volume] in Serum or Plasma 4.4 meq/L 3.5-5.1 [facility] ([facility]) Alkaline phosphatase isoenzyme [Units/volume] in Serum or Pl asma 85 mg/dL 46-116 [facility] ([facility]) Calcium [Mass/volume] in Serum or Plasma 8.6 mg/dL 8.5-10.1 [facility] ([facility]) Total Bilirubin 0.6 mg/dL 0.2-1.0 [facility] ([facility]) Aspartate aminotransferase [Enzymatic activity/volume] in Serum or Plasma 16 U/L 15-37 [facility] ([facility] ) Alanine aminotransferase [Enzymatic activity/volume] in Seru m or Plasma 27 U/L 12-78 [facility] ([facility]) Albumin [Mass/volume] in Serum or Plasma 3.5 g/dL 3.4-5.0 [facility] ([facility]) Proteinase 3 Ab [Units/volume] in Serum 6.6 g/dL 6.4-8.2 [facility] ([facility]) A/G Ratio 1.13 CALC 1.00-1.90 [facility] ([place] [facility]) Glomerular filtration rate/1.73 sq M pre dicted among non-blacks [Volume Rate/Area] in Serum or Plasma by Creatinine-based formula (MDRD) 54 mL/min [facility] ([place] [facility] Glomerular filtration rate/1.73 sq M pre dicted among blacks [Volume Rate/Area] in Serum or Plasma by Creatinine-based formula (MDRD) Laboratory test result [facility] ([facility]) <content>CHRONIC KIDNEY DISEASE STAGING PER NKF</content>
<content></content>
<content>STAGE I & II GFR >= 60 NORMAL TO MILDLY DECREASED</content>
<content>STAGE III GFR 30-59 MODERATELY DECREASED</content>
<content>STAGE IV GFR 15-29 SEVERELY DECREASED</content>
<content>STAGE V GFR <15 VERY LITTLE GFR LEFT</content>
<content>ESRD GFR <15 ON PAINTER ORDNANCE</content>
<content></content> ID Date Data Source [id number] 06/08/2020 07:41:00 AM EDT [facility]) Name Value Range Interpretation Code Description Data Svetlana rce(s) Supporting Document(s) Glucose mean value [Mass/volume] in Blood Estimated fr om glycated hemoglobin 120 mg/dL 60-110 [facility] ([place] Hemoglobin A1c/Hemoglobin.total in Blood 5.8 % [facility] ([place] [facility] Lab Result Notes: Pre-Diabetes 5.7 - 6.4 % Diabetes = or > 6.5% ID Date Data Source [id number] 06/08/2020 07:41:00 AM EDT [facility] Name Value Range Interpretation Code Description Data Svetlana rce(s) Supporting Document(s) Leukocytes [#/volume] in Blood by Automated count 9.4 x10*3/UL 4.1-10 .9 [facility] ([facility]) Hematocrit [Volume Fraction] of Blood by Automated count 43.5 % 3 7.0-51.0 [facility] ([place] [facility] Erythrocytes [#/volume] in Blood by Automated count 4.78 x10*6/UL 4.2 0-6.30 [facility] ([facility]) Hemoglobin [Mass/volume] in Blood 15.0 g/dL 12.0-18.0 [facility] ([facility]) Erythrocyte distribution width [Ratio] by Automated count 13.0 % 11.6-13.7 [facility] ([facility]) MCHC 34.6 g/dL 31.0-38.0 [facility] [facility]) MCH 31.5 pg 26.0-32.0 [facility] [facility]) MCV 91.0 fL 80.0-97.0 [facility] [facility]) Platelets [#/volume] in Blood by Automated count 313 x10*3/UL 140-440 [facility] ([facility]) Lymph % 36.5 % 10.0-58.5 [facility] [facility]) MPV 7.3 FL 7.8-11.0 [facility] [facility] Lymph # 3.4 x10*3/UL 0.6-4.1 [facility] ([facility]) Mid # 0.8 x10*3/UL 0.1-0.6 [facility] ([facility]) Neut % 56.0 % 37.0-92.0 [facility] [facility] Mid % 7.5 % 1.7-9.3 [facility] ([place] [facility] Neut # 5.2 x10*3/UL 2.0-7.8 [facility] ([facility]) Procedure Social History Code Duration Value Status Description Data Source(s ) Smoking 06/07/2021 12:00:00 AM EDT - 08/18/2010 12:00:00 AM EST Patient is a former smoker completed Patient is a former smoker [facility] ([facility], ) Smoking 05/11/2021 12:00:00 AM EDT Never Smoker completed Never S sammy eC ([facility]) Smoking 04/18/2021 09:37:01 PM EDT Ex-smoker (finding) [facility] Ex-smoker (finding) [facility] (Fernando Lopez MD [facility]) Smoking 04/04/2021 12:00:00 AM EDT Patient is a former smoker completed Patient is a former smoker [facility] ([facility]) Vital Signs ID Date Data Source UNK Name Value Range Interpretation Code Description Data Source(s) Systolic blood pressure 128 mm[Hg] 128 mm[Hg] M EDENT ([facility]) Diastolic blood pressure 72 mm[Hg] 72 mm[Hg] [facility] ([facility]) Heart rate 82 /min 82 /min [facility] ([facility]) Body height 70 [in_i] 70 [in_i] [facility] ([facility]) 5'10" Body weight 196.00 [lb_av] 196.00 [lb_av] MEDEN T ([facility]) Oxygen saturation in Arterial blood by Pulse oximetry 96 % 96 % [facility] ([facility]) Air Body mass index (BMI) [Ratio] 28.1 kg/m2 28.1 k g/m2 [facility] ([facility]) Heart rate 89 /min 89 /min [facility] Oxygen saturation in Arterial blood by Pulse oximetry 96 % 96 % [facility] ([facility]) Respiratory rate 18 /min 18 /min [facility] ( [facility]) Body height 70.5 [in_i] 70.5 [in_i] [facility] ([facility]) 5'10.50" Body weight 191.25 [lb_av] 191.25 [lb_av] MEDEN T ([facility]) Body mass index (BMI) [Ratio] 27.1 kg/m2 27.1 k g/m2 [facility] ([facility]) [place] body weight 166 [lb_av] 166 [facility] Body weight 86.751 kg 86.751 kg [facility] ([facility]) Body surface area Derived from formula 2.06 m2 2.06 m2 [facility] ([facility]) Systolic blood pressure 130 mm[Hg] 130 mm[Hg] M EDENT ([facility]) Diastolic blood pressure 60 mm[Hg] 60 mm[Hg] [facility] ([facility]) Body weight 195.8 [lb_av] 195.8 [lb_av] eCW1 ([facility]) Body weight 88.81 kg 88.81 kg eCW1 ([facility]) Body height 72 [in_i] 72 [in_i] eCW1 ([facility]) Body mass index (BMI) [Ratio] 26.55 kg/m2 26.55 kg/m2 eCW1 ([facility]) Systolic blood pressure 130 mm[Hg] 130 mm[Hg] e CW1 ([facility]) Diastolic blood pressure 72 mm[Hg] 72 mm[Hg] eCW1 ([facility]) Body height 72 [in_i] 72 [in_i] [facility] ([facility] 6'0" Body weight 191.00 [lb_av] 191.00 [lb_av] MEDEN T ([facility]) Systolic blood pressure 131 mm[Hg] 131 mm[Hg] M EDENT ([facility]) Diastolic blood pressure 74 mm[Hg] 74 mm[Hg] [facility] ([facility]) Heart rate 96 /min 96 /min [facility] ([facility]) Body mass index (BMI) [Ratio] 25.9 kg/m2 25.9 k g/m2 [facility] ([facility]) Body weight 86.638 kg 86.638 kg [facility] ([facility] Body temperature 97.2 [degF] 97.2 [degF] [facility] ([facility]) Body weight 189.00 [lb_av] 189.00 [lb_av] MEDEN T ([facility]) Body height 71 [in_i] 71 [in_i] [facility] ([facility] 5'11" Body mass index (BMI) [Ratio] 26.4 kg/m2 26.4 k g/m2 [facility] ([facility]) Heart rate 72 /min 72 /min [facility] ([facility]) Systolic blood pressure--sitting 133 mm[Hg] 133 mm[Hg] [facility] ([facility]) CBP, large cuff/Ra Diastolic blood pressure--sitting 88 mm[Hg] 88 mm[Hg] [facility] ([facility]) CBP, large cuff/Ra Body height 70 [in_i] 70 [in_i] [facility] ([facility]) 5'10" Systolic blood pressure 126 mm[Hg] 126 mm[Hg] M EDENT ([facility]) Diastolic blood pressure 76 mm[Hg] 76 mm[Hg] [facility] ([facility]) Heart rate 68 /min 68 /min [facility] ([facility]) Body weight 204.00 [lb_av] 204.00 [lb_av] MEDEN T ([facility]) Body mass index (BMI) [Ratio] 29.3 kg/m2 29.3 k g/m2 [facility] ([facility]) Body weight 208 [lb_av] 208 [lb_av] eCW1 ([facility]) Body height 72 [in_i] 72 [in_i] eCW1 ([facility]) Body mass index (BMI) [Ratio] 28.21 kg/m2 28.21 kg/m2 eCW1 ([facility]) Systolic blood pressure 128 mm[Hg] 128 mm[Hg] e CW1 ([facility]) Diastolic blood pressure 78 mm[Hg] 78 mm[Hg] eCW1 ([facility]) Heart rate 94 /min 94 /min [facility] ([facility]) Diastolic blood pressure--sitting 88 mm[Hg] 88 mm[Hg] [facility] ([facility]) CBP, large cuff/Ra Body weight 200.00 [lb_av] 200.00 [lb_av] MEDEN T ([facility]) Body mass index (BMI) [Ratio] 27.9 kg/m2 27.9 k g/m2 [facility] ([facility]) Systolic blood pressure--sitting 139 mm[Hg] 139 mm[Hg] [facility] ([facility]) CBP, large cuff/Ra Body height 71 [in_i] 71 [in_i] [facility] ([facility]) 5'11" Oxygen saturation in Arterial blood by Pulse oximetry 98 % 98 % [facility] Body temperature 97.2 [degF] 97.2 [degF] [facility] ) Body height 70.5 [in_i] 70.5 [in_i] [facility] ([facility], ) 5'10.50" Body weight 206.00 [lb_av] 206.00 [lb_av] MEDEN T ([facility], ) Body mass index (BMI) [Ratio] 29.1 kg/m2 29.1 k g/m2 [facility] ([facility]) [place] body weight 166 [lb_av] 166 [lb_av] MEDEN T ([facility]) Body weight 93.442 kg 93.442 kg [facility] ([facility]) Body surface area Derived from formula 2.12 m2 2.12 m2 [facility] ([facility]) Systolic blood pressure 130 mm[Hg] 130 mm[Hg] M EDENT ([facility]) Diastolic blood pressure 80 mm[Hg] 80 mm[Hg] [facility] ([facility]) Heart rate 96 /min 96 /min [facility] ([facility]) Oxygen saturation in Arterial blood by Pulse oximetry 98 % 98 % [facility] ([facility]) Body temperature 97.2 [degF] 97.2 [degF] [facility] ([facility]) Body height 70.5 [in_i] 70.5 [in_i] [facility] ([facility]) 5'10.50" Body weight 206.00 [lb_av] 206.00 [lb_av] MEDEN T ([facility]) Body mass index (BMI) [Ratio] 29.1 kg/m2 29.1 k g/m2 [facility] ([facility]) [place] body weight 166 [lb_av] 166 [lb_av] MEDEN T ([facility]) Body weight 93.442 kg 93.442 kg [facility] ([facility]) Body surface area Derived from formula 2.12 m2 2.12 m2 [facility] ([facility]) Systolic blood pressure 128 mm[Hg] 128 mm[Hg] [facility] Diastolic blood pressure 76 mm[Hg] 76 mm[Hg] [facility] Heart rate 72 /min 72 /min [facility] ([facility]) Body weight 206.00 [lb_av] 206.00 [lb_av] [facility] ([facility]) Systolic blood pressure 132 mm[Hg] 132 mm[Hg] [facility] Diastolic blood pressure 90 mm[Hg] 90 mm[Hg] [facility] ([facility]) Heart rate 95 /min 95 /min [facility] ([facility]) Oxygen saturation in Arterial blood by Pulse oximetry 96 % 96 % [facility] ([facility]) Body temperature 98.0 [degF] 98.0 [degF] [facility] ([facility]) Body height 70.5 [in_i] 70.5 [in_i] [facility] ([facility]) 5'10.50" Body weight 207.38 [lb_av] 207.38 [lb_av] [facility] ([facility]) Body mass index (BMI) [Ratio] 29.3 kg/m2 29.3 k g/m2 [facility] ([facility]) [place] body weight 166 [lb_av] 166 [lb_av] [facility] Body weight 94.065 kg 94.065 kg [facility] ([facility]) Body surface area Derived from formula 2.13 m2 2.13 m2 [facility] ([facility])
[2021-07-04] MEDS ORDERED: LIDOCAINE 2% 100MG/5ML SDV (FOR ANES.) As Ordered ONE (09:08)
--- NOTE | 2021-07-04 09:34 | ROOR ---
Patient Name: Leonard Khan Procedure Date: 07/04/2021 9:13 AM Date of : 1945 Age: 76 Room: OP02 Gender: Male Note Status: Finalized Procedure: Total Colonoscopy to Cecum + ileoscopy Indications: High risk colon cancer surveillance: Personal history of colonic polyps, Last colonoscopy: 2015, Incidental - Follow-up of diverticulitis Providers: Aram Lopez MD Referring MD: GRECIA RINCON JR, MD Requesting Provider: Medicines: Monitored Anesthesia Care Complications: No immediate complications. Procedure: Pre-Anesthesia Assessment: - The heart rate, respiratory rate, oxygen saturations, blood pressure, adequacy of pulmonary ventilation, and response to care were monitored throughout the procedure. The Colonoscope was introduced through the anus and advanced to the terminal ileum, with identification of the appendiceal orifice and IC valve. The colonoscopy was performed without difficulty. The patient tolerated the procedure well. The quality of the bowel preparation was good. Findings: The perianal and digital rectal examinations were normal. Non-bleeding internal hemorrhoids were found during retroflexion. The hemorrhoids were small and Grade I (internal hemorrhoids that do not prolapse). Multiple small and large-mouthed diverticula were found in the recto-sigmoid colon, sigmoid colon and descending colon. The terminal ileum appeared normal. The exam was otherwise without abnormality on direct and retroflexion views. Impression: - Non-bleeding internal hemorrhoids. - Diverticulosis in the recto-sigmoid colon, in the sigmoid colon and in the descending colon. - The examined portion of the ileum was normal. - The examination was otherwise normal on direct and retroflexion views. - No specimens collected. - The exam was otherwise normal to the cecum. Recommendation: - Patient has a contact number available for emergencies. The signs and symptoms of potential delayed complications were discussed with the patient. Return to normal activities tomorrow. Written discharge instructions were provided to the patient. - High fiber diet. - Discharge patient to home. - Continue present medications. - Repeat colonoscopy is not recommended for screening purposes. - Return to referring physician. - The findings and recommendations were discussed with the patient. Procedure Code(s): --- Professional --- 37774, Colonoscopy, flexible; diagnostic, including collection of specimen(s) by brushing or washing, when performed (separate procedure) Diagnosis Code(s): --- Professional --- Z86.010, Personal history of colonic polyps K64.0, First degree hemorrhoids K57.30, Diverticulosis of large intestine without perforation or abscess without bleeding CPT copyright 2019 [employer]. All rights reserved. The codes documented in this report are preliminary and upon behavioral therapist review may be revised to meet current compliance requirements. Aram Lopez MD Aram Lopez MD 07/04/2021 9:33:54 AM Electronically signed by Aram Lopez MD Number of Addenda: 0 Note Initiated On: 07/04/2021 9:13 AM Estimated Blood Loss: Estimated blood loss: none.
[2021-07-04] MEDS ORDERED: propofoL 500 MG/50 ML VIAL As Ordered ONE (09:39)
[2021-07-04 09:55] VITALS: BP 141/75
== END 2021-07-04 10:00 | disposition home or self-care (01) ==
LOC: M OPP 08:11
PROVIDERS: ATTEND Internal Medicine Gastroenterology
DX: Z12.11 Encounter for screening for malignant neoplasm of colon (principal); Z86.010 Personal history of colon polyps; K57.30 Diverticulosis of large intestine without perforation or abscess without bleeding; K64.0 First degree hemorrhoids; Z79.82 Long term (current) use of aspirin; Z79.899 Other long term (current) drug therapy; Z95.818 Presence of other cardiac implants and grafts

== ENCOUNTER → 2021-08-16 | Outpatient (CLI) | payer MEDICARE ==
[~2021-08-16] MED LIST changes: +MAGN1TAB39 PO; -NS 1,000 ML IV ONE
== END ==
LOC: M LABSMTC 09:39
PROVIDERS: ATTEND Anesthesiology
DX: Z01.818 Encounter for other preprocedural examination (principal); Z11.52 Encounter for screening for COVID-19

== ENCOUNTER 2021-08-21 09:31 | Day surgery (SDC) | payer MEDICARE ==
[~2021-08-21] VITALS: Ht 182.9 cm; Wt 87.1 kg
[~2021-08-21 09:31] MED LIST changes: +LIDOCAINE 2% 100MG/5ML SDV (FOR ANES.) As Ordered ONE; +MIDAZOLAM INJ 2MG/2ML VIAL (J2250 PER 1MG) As Ordered ONE; +ROCURONIUM BROMIDE 50 MG/5 ML VIAL As Ordered ONE; +fentaNYL 250 MCG/5 ML INJECTION (J3010) As Ordered ONE; +propofoL 200 MG/20 ML VIAL As Ordered ONE
[2021-08-21] MEDS ORDERED: ceFAZolin SOD 2 GM in IV 1 EA IV ONE (10:20)
[2021-08-21] MEDS ORDERED: LR 1,000 ML IV ONE (10:20)
[2021-08-21] MEDS ORDERED: BUPIVACAINE/EPIN 0.25% 30 ML VIAL As Ordered ONE (11:25)
[2021-08-21] MEDS ORDERED: dexameTHASONE 4 MG/ML 1ML VIAL (J1100 PER 1MG) As Ordered ONE (11:50)
[2021-08-21] MEDS ORDERED: SCOPOLAMINE 1MG TRANSDERMAL PATCH TOP ONE (12:00)
[2021-08-21] MEDS ORDERED: ONDANSETRON 4MG/2ML VIAL As Ordered ONE (12:20)
[2021-08-21] MEDS ORDERED: ACETAMINOPHEN 1000MG 100ML IV BTL (OFIRMEV) (J0131 PER 10MG) As Ordered ONE (12:20)
[2021-08-21] MEDS ORDERED: METOCLOPRAMIDE INJ 10MG/2ML VIAL (J2765 PER 1) As Ordered ONE (12:20)
--- NOTE | 2021-08-21 13:12 | RO ---
OPERATIVE NOTE DATE OF OPERATION: 08/21/2021 PREOPERATIVE DIAGNOSIS: Left inguinal hernia (recurrent). POSTOPERATIVE DIAGNOSIS: Left inguinal hernia recurrent (indirect). PROCEDURE: Robotic-assisted laparoscopic left inguinal hernia repair with ProGrip mesh. SURGEON: Johnny Erwin M.D. HEAD TENNIS COACH: MIMI Yung, (provided instrument exchange, trocar placement, and abdominal wall closure). ESTIMATED BLOOD LOSS: Minimal. FLUIDS: Crystalloid. BRIEF PROCEDURE SUMMARY: The patient was brought to the operating room and was given general anesthesia. After adequate anesthesia and preoperative antibiotics were given, the patient was prepped and draped in the usual sterile fashion. Next, the patient was placed in a slight Trendelenburg position. Local was placed into the supraumbilical site and Veress needle was then placed into the peritoneal cavity and insufflated to 15 mm of pressure. A dilating 8-mm trocar was placed and then under direct visualization, two lateral trocars were placed. The robot was docked. The patient was placed in steep Trendelenburg and the peritoneum overlying the left inguinal area was taken down with monopolar cut scissors. After this was performed and a nice flap was created and the indirect was mobilized off of the cord structures and off Vamsi's ligament and the lateral border of the pubis, the mesh was cut to the appropriate size, pressed into position. The peritoneum was closed over the top of this with 3-0 V-Loc. All trocars were removed under direct visualization. The incisions were all closed with 4-0 Vicryl. Steri-Strips and a dry sterile dressing were applied. The patient was awakened, extubated, and brought to the recovery room awake, alert, and hemodynamically stable. Sponge and needle counts were correct x2.
[2021-08-21] MEDS ORDERED: LR 1,000 ML IV SCH ×2 (13:25→13:30)
[2021-08-21] MEDS ORDERED: fentaNYL 100 MCG/2 ML INJECTION (J3010) IV PRN (13:25)
[2021-08-21] MEDS ORDERED: ONDANSETRON 4MG/2ML VIAL IV PRN (13:25)
[2021-08-21] MEDS ORDERED: MORPHINE 2 MG/ML 1ML VIAL (J2270) IV PRN (13:30)
[2021-08-21] MEDS ORDERED: NORCO, ANEXSIA 5/325MG TABLET (HYDROcodone/ACETAMINOPHEN) PO PRN (13:35)
[2021-08-21] MEDS: oxyCODONE 5MG TAB PO PRN ×2 (13:37→15:04)
[2021-08-21 15:05] VITALS: BP 147/85
== END 2021-08-21 15:13 | disposition home or self-care (01) ==
LOC: M SDC 09:31
PROVIDERS: ATTEND Surgery
DX: K40.91 Unilateral inguinal hernia, without obstruction or gangrene, recurrent (principal); I48.21 Permanent atrial fibrillation; I25.10 Atherosclerotic heart disease of native coronary artery without angina pectoris; I10 Essential (primary) hypertension; I25.2 Old myocardial infarction; I49.3 Ventricular premature depolarization; G47.33 Obstructive sleep apnea (adult) (pediatric); E78.00 Pure hypercholesterolemia, unspecified; Z95.818 Presence of other cardiac implants and grafts; F41.9 Anxiety disorder, unspecified; K57.92 Diverticulitis of intestine, part unspecified, without perforation or abscess without bleeding; Z79.82 Long term (current) use of aspirin; Z79.899 Other long term (current) drug therapy; N40.0 Benign prostatic hyperplasia without lower urinary tract symptoms; R91.8 Other nonspecific abnormal finding of lung field; Z87.891 Personal history of nicotine dependence
CPT/HCPCS: 49651; C1781; J0131; J0690; J1100; J2250; J2270; J2405; J2765; J3010; S2900

== ENCOUNTER → 2021-10-24 | Outpatient (CLI) | payer MEDICARE ==
[~2021-10-24] MED LIST changes: -D31000TA2 PO; -LIDOCAINE 2% 100MG/5ML SDV (FOR ANES.) As Ordered ONE; +LOSA25TA13 PO; -LOSA25TA14 PO; -MIDAZOLAM INJ 2MG/2ML VIAL (J2250 PER 1MG) As Ordered ONE; +POTA1TAB22 PO; -POTA8TAB8 PO; -ROCURONIUM BROMIDE 50 MG/5 ML VIAL As Ordered ONE; +VITA100093 PO; -fentaNYL 250 MCG/5 ML INJECTION (J3010) As Ordered ONE; -propofoL 200 MG/20 ML VIAL As Ordered ONE
== END ==
LOC: M RAD 14:16
PROVIDERS: ATTEND Internal Medicine
DX: R91.1 Solitary pulmonary nodule (principal)

== ENCOUNTER → 2021-11-19 | Outpatient (CLI) | payer MEDICARE | LOC: M PLARAD 15:02 | PROVIDERS: ATTEND Internal Medicine | DX: R91.1 Solitary pulmonary nodule (principal) | CPT/HCPCS: 78815; A9552 ==

== ENCOUNTER → 2022-11-06 | Outpatient (REF) | payer MEDICARE ==
[~2022-11-06] MED LIST changes: +INDA1.253 PO; -INDA125TA PO
== END ==
LOC: M SFHCDERM 13:53
PROVIDERS: ATTEND Physician Assistant
DX: D23.62 Other benign neoplasm of skin of left upper limb, including shoulder (principal)

== ENCOUNTER → 2022-11-14 | Outpatient (CLI) | payer MEDICARE | LOC: M PLAIMG 10:40 | PROVIDERS: ATTEND Internal Medicine | DX: R91.1 Solitary pulmonary nodule (principal) ==

== ENCOUNTER → 2022-12-31 | Outpatient (CLI) | payer MEDICARE | LOC: M SOG 07:54 | PROVIDERS: ATTEND Physician Assistant | DX: M79.645 Pain in left finger(s) (principal) ==

== ENCOUNTER → 2023-05-22 | Outpatient (REF) | payer MEDICARE | LOC: M SFHCDERM 17:31 | PROVIDERS: ATTEND Physician Assistant | DX: C44.629 Squamous cell carcinoma of skin of left upper limb, including shoulder (principal) ==

== ENCOUNTER 2023-06-17 12:30 | Emergency (ER) | payer MEDICARE ==
[~2023-06-17] VITALS: Ht 180.3 cm; Wt 87.8 kg
[2023-06-17] MEDS ORDERED: VALS1TAB67 (12:42)
[2023-06-17] MEDS ORDERED: LIDOCAINE 5% (LIDODERM) PATCH TD ONE (15:15)
[2023-06-17] MEDS ORDERED: KETOROLAC 60MG 2ML VIAL IM ONE (15:15)
[2023-06-17 15:31] VITALS: BP 172/86; TEMP 98.1; O2SAT 95
[2023-06-17] MEDS ORDERED: ASPE4PAD TOP (15:34)
== END 2023-06-17 15:55 | disposition home or self-care (01) ==
LOC: M ED 12:30
DX: S20.222A Contusion of left back wall of thorax, initial encounter (principal); S40.912A Unspecified superficial injury of left shoulder, initial encounter; J98.4 Other disorders of lung; M54.50 Low back pain, unspecified; W01.0XXA Fall on same level from slipping, tripping and stumbling without subsequent striking against object, initial encounter; E78.5 Hyperlipidemia, unspecified; I10 Essential (primary) hypertension; I25.2 Old myocardial infarction; G47.33 Obstructive sleep apnea (adult) (pediatric); F17.200 Nicotine dependence, unspecified, uncomplicated; Z86.79 Personal history of other diseases of the circulatory system; Z79.82 Long term (current) use of aspirin; Z79.83 Long term (current) use of bisphosphonates; Z79.811 Long term (current) use of aromatase inhibitors; Z79.899 Other long term (current) drug therapy; Y92.009 Unspecified place in unspecified non-institutional (private) residence as the place of occurrence of the external cause; Y93.9 Activity, unspecified; Y99.9 Unspecified external cause status
CPT/HCPCS: 71250; 73030; 96372; 99283; J1885

== ENCOUNTER → 2023-07-07 | Outpatient (REF) | payer MEDICARE ==
[~2023-07-07] MED LIST changes: +ASPE4PAD TOP; +VALS1TAB67
[2023-07-07 13:28] LABS: C REACTIVE PROTEIN QUANTITATIV < 0.40 MG/DL (<1.0)
[2023-07-07 13:44] LABS: RHEUMATOID FACTOR QUANT 782.7 IU/ML (<14)
[2023-07-08 20:08] LABS: ANTINUCLEAR ANTIBODIES DIRECT Negative (Negative); CYCLIC CITRULLINATED PEPTIDE 2 units (0-19); IgG P18 AB Absent (.); IgG P23 AB Absent (.); IgG P28 AB Absent (.); IgG P30 AB Absent (.); IgG P39 AB Absent (.); IgG P41 AB Absent (.); IgG P45 AB Absent (.); IgG P66 AB Absent (.); IgG P93 AB Absent (.); IgM P23 AB Absent (.); IgM P39 AB Present (.); IgM P41 AB Absent (.); LYME IgG WB INTERPRETATION Negative (.); LYME IgM WB INTERPRETATION Negative (.)
== END ==
LOC: M LAB REF 12:34
PROVIDERS: ATTEND Internal Medicine
DX: I73.00 Raynaud's syndrome without gangrene (principal); Z11.59 Encounter for screening for other viral diseases

== ENCOUNTER → 2024-02-05 | Outpatient (CLI) | payer MEDICARE ==
[~2024-02-05] MED LIST changes: -ASPI-161 PO; +ASPI-615 PO; +ONDA-282 PO; -ONDA4TAB6 PO
== END ==
LOC: M LAB 09:00
PROVIDERS: ATTEND Internal Medicine
DX: Z79.899 Other long term (current) drug therapy (principal)

== ENCOUNTER → 2024-02-25 | Outpatient (CLI) | payer MEDICARE | LOC: M WHC 11:16 | PROVIDERS: ATTEND Internal Medicine | DX: Z13.820 Encounter for screening for osteoporosis (principal) ==

== ENCOUNTER → 2024-03-08 | Outpatient (CLI) | payer MEDICARE ==
[2024-03-08 15:51] LABS: BASO # 0.1 10^3/uL (0.0-0.2); BASO % 0.5 % (0.0-1.0); EOS # 0.1 10^3/uL (0.0-0.5); EOS % 0.5 % (0.0-3.0); HEMATOCRIT 44.5 % (42.0-52.0); HEMOGLOBIN 14.8 g/dl (13.5-17.5); LYMPH # 3.9 10^3/uL (1.5-5.0); LYMPH % 26.4 % (24.0-44.0); MEAN CORPUSCULAR HEMOGLOBIN 33.3 pg (27.0-33.0); MEAN CORPUSCULAR HGB CONC 33.3 g/dl (32.0-36.5); MONO # 0.7 10^3/uL (0.0-0.8); MONO % 4.8 % (2.0-8.0); NEUTROPHILS # 9.4 10^3/uL (1.5-8.5); NEUTROPHILS % 64.1 % (36.0-66.0); PLATELET COUNT, AUTOMATED 229 10^3/uL (150-450); RED BLOOD COUNT 4.45 10^6/uL (4.30-6.10); WHITE BLOOD COUNT 14.7 10^3/uL (4.0-10.0)
[2024-03-08 16:13] LABS: C REACTIVE PROTEIN QUANTITATIV < 0.40 MG/DL (<1.0)
[2024-03-08 16:17] LABS: ALBUMIN 3.8 G/DL (3.2-5.2); ALKALINE PHOSPHATASE 60 U/L (46-116); ALT/SGPT 24 U/L (7.0-40); AST/SGOT 13 U/L (<34); BILIRUBIN,TOTAL 0.6 MG/DL (0.3-1.2); BLOOD UREA NITROGEN 16 MG/DL (9-23); CALCIUM LEVEL 9.4 MG/DL (8.3-10.6); CARBON DIOXIDE LEVEL 29 MMOL/L (20-31); CHLORIDE LEVEL 101 MMOL/L (98-107); CREATININE FOR GFR 1.06 MG/DL (0.70-1.30); GLOMERULAR FILTRATION RATE > 60.0 (>42); GLUCOSE, FASTING 104 MG/DL (74-106); POTASSIUM SERUM 4.1 MMOL/L (3.5-5.1); SODIUM LEVEL 138 MMOL/L (136-145); TOTAL PROTEIN 6.5 G/DL (5.7-8.2)
== END ==
LOC: M LAB 14:25
PROVIDERS: ATTEND Physician Assistant
DX: J84.2 Lymphoid interstitial pneumonia (principal)

== ENCOUNTER → 2024-03-22 | Outpatient (CLI) | payer MEDICARE ==
[2024-03-22 09:35] LABS: BASO # 0.1 10^3/uL (0.0-0.2); BASO % 0.6 % (0.0-1.0); EOS # 0.2 10^3/uL (0.0-0.5); EOS % 1.4 % (0.0-3.0); HEMATOCRIT 45.8 % (42.0-52.0); HEMOGLOBIN 15.5 g/dl (13.5-17.5); LYMPH # 2.8 10^3/uL (1.5-5.0); MEAN CORPUSCULAR HEMOGLOBIN 33.6 pg (27.0-33.0); MEAN CORPUSCULAR HGB CONC 33.8 g/dl (32.0-36.5); MEAN CORPUSCULAR VOLUME 99.3 fl (80.0-96.0); MONO % 9.4 % (2.0-8.0); NEUTROPHILS # 6.5 10^3/uL (1.5-8.5); NEUTROPHILS % 60.4 % (36.0-66.0); PLATELET COUNT, AUTOMATED 214 10^3/uL (150-450); RED BLOOD COUNT 4.61 10^6/uL (4.30-6.10); WHITE BLOOD COUNT 10.8 10^3/uL (4.0-10.0)
[2024-03-22 10:07] LABS: C REACTIVE PROTEIN QUANTITATIV < 0.40 MG/DL (<1.0)
[2024-03-22 10:09] LABS: ALBUMIN 3.9 G/DL (3.2-5.2); ALKALINE PHOSPHATASE 56 U/L (46-116); ALT/SGPT 22 U/L (7.0-40); AST/SGOT 16 U/L (<34); BILIRUBIN,TOTAL 0.7 MG/DL (0.3-1.2); BLOOD UREA NITROGEN 17 MG/DL (9-23); CALCIUM LEVEL 8.9 MG/DL (8.3-10.6); CARBON DIOXIDE LEVEL 30 MMOL/L (20-31); CHLORIDE LEVEL 102 MMOL/L (98-107); CREATININE FOR GFR 0.98 MG/DL (0.70-1.30); GLOMERULAR FILTRATION RATE > 60.0 (>42); GLUCOSE, FASTING 111 MG/DL (74-106); POTASSIUM SERUM 3.6 MMOL/L (3.5-5.1); SODIUM LEVEL 136 MMOL/L (136-145); TOTAL PROTEIN 6.5 G/DL (5.7-8.2)
== END ==
LOC: M LAB 08:30
PROVIDERS: ATTEND Physician Assistant
DX: J84.2 Lymphoid interstitial pneumonia (principal)

== ENCOUNTER → 2024-04-22 | Outpatient (CLI) | payer MEDICARE ==
[2024-04-22 08:46] LABS: BASO # 0.1 10^3/uL (0.0-0.2); BASO % 0.5 % (0.0-1.0); EOS # 0.1 10^3/uL (0.0-0.5); HEMATOCRIT 42.7 % (42.0-52.0); HEMOGLOBIN 14.7 g/dl (13.5-17.5); LYMPH # 2.8 10^3/uL (1.5-5.0); MEAN CORPUSCULAR HEMOGLOBIN 32.5 pg (27.0-33.0); MEAN CORPUSCULAR HGB CONC 34.4 g/dl (32.0-36.5); MEAN CORPUSCULAR VOLUME 94.5 fl (80.0-96.0); MONO % 8.4 % (2.0-8.0); NEUTROPHILS # 7.4 10^3/uL (1.5-8.5); NEUTROPHILS % 63.1 % (36.0-66.0); PLATELET COUNT, AUTOMATED 212 10^3/uL (150-450); RED BLOOD COUNT 4.52 10^6/uL (4.30-6.10); WHITE BLOOD COUNT 11.8 10^3/uL (4.0-10.0)
[2024-04-22 09:15] LABS: C REACTIVE PROTEIN QUANTITATIV < 0.40 MG/DL (<1.0)
[2024-04-22 09:16] LABS: ALBUMIN 3.9 G/DL (3.2-5.2); ALKALINE PHOSPHATASE 62 U/L (46-116); ALT/SGPT 30 U/L (7.0-40); AST/SGOT 23 U/L (<34); BILIRUBIN,TOTAL 0.3 MG/DL (0.3-1.2); BLOOD UREA NITROGEN 15 MG/DL (9-23); CALCIUM LEVEL 8.6 MG/DL (8.3-10.6); CARBON DIOXIDE LEVEL 29 MMOL/L (20-31); CHLORIDE LEVEL 103 MMOL/L (98-107); CREATININE FOR GFR 0.94 MG/DL (0.70-1.30); GLOMERULAR FILTRATION RATE > 60.0 (>42); GLUCOSE, FASTING 92 MG/DL (74-106); POTASSIUM SERUM 4.1 MMOL/L (3.5-5.1); SODIUM LEVEL 133 MMOL/L (136-145); TOTAL PROTEIN 6.4 G/DL (5.7-8.2)
== END ==
LOC: M LAB 08:05
PROVIDERS: ATTEND Physician Assistant
DX: J84.2 Lymphoid interstitial pneumonia (principal)

== ENCOUNTER → 2024-07-23 | Outpatient (CLI) | payer MEDICARE ==
[2024-07-23 14:37] LABS: BASO % 0.5 % (0.0-1.0); EOS # 0.1 10^3/uL (0.0-0.5); EOS % 0.6 % (0.0-3.0); HEMATOCRIT 43.1 % (42.0-52.0); HEMOGLOBIN 14.6 g/dl (13.5-17.5); LYMPH # 2.5 10^3/uL (1.5-5.0); LYMPH % 31.4 % (24.0-44.0); MEAN CORPUSCULAR HEMOGLOBIN 33.3 pg (27.0-33.0); MEAN CORPUSCULAR HGB CONC 33.9 g/dl (32.0-36.5); MEAN CORPUSCULAR VOLUME 98.4 fl (80.0-96.0); MONO # 0.7 10^3/uL (0.0-0.8); MONO % 8.6 % (2.0-8.0); NEUTROPHILS # 4.6 10^3/uL (1.5-8.5); NEUTROPHILS % 58.1 % (36.0-66.0); PLATELET COUNT, AUTOMATED 228 10^3/uL (150-450); RED BLOOD COUNT 4.38 10^6/uL (4.30-6.10); WHITE BLOOD COUNT 7.9 10^3/uL (4.0-10.0)
[2024-07-23 14:50] LABS: ERYTHROCYTE SEDIMENTATION RATE 6 mm/hr (0-20)
[2024-07-23 15:06] LABS: C REACTIVE PROTEIN QUANTITATIV < 0.50 MG/DL (<1.0)
[2024-07-23 15:07] LABS: ALBUMIN 3.7 G/DL (3.2-5.2); ALKALINE PHOSPHATASE 71 U/L (40-129); ALT/SGPT 23 U/L (7.0-40); AST/SGOT 19 U/L (<34); BILIRUBIN,TOTAL 0.8 MG/DL (0.3-1.2); BLOOD UREA NITROGEN 16 MG/DL (9-23); CALCIUM LEVEL 9.3 MG/DL (8.3-10.6); CARBON DIOXIDE LEVEL 31 MMOL/L (20-31); CHLORIDE LEVEL 99 MMOL/L (98-107); CREATININE FOR GFR 0.98 MG/DL (0.70-1.30); GLOMERULAR FILTRATION RATE > 60.0 (>42); GLUCOSE, FASTING 136 MG/DL (74-106); POTASSIUM SERUM 3.8 MMOL/L (3.5-5.1); SODIUM LEVEL 138 MMOL/L (136-145); TOTAL PROTEIN 6.8 G/DL (5.7-8.2)
== END ==
LOC: M LAB 13:26
PROVIDERS: ATTEND Internal Medicine
DX: Z79.899 Other long term (current) drug therapy (principal)

== ENCOUNTER → 2024-10-07 | Outpatient (CLI) | payer MEDICARE ==
[2024-10-07 15:05] LABS: BASO % 0.2 % (0.0-1.0); EOS # 0.1 10^3/uL (0.0-0.5); HEMATOCRIT 43.9 % (42.0-52.0); HEMOGLOBIN 14.7 g/dl (13.5-17.5); LYMPH # 2.2 10^3/uL (1.5-5.0); LYMPH % 24.3 % (24.0-44.0); MEAN CORPUSCULAR HGB CONC 33.5 g/dl (32.0-36.5); MEAN CORPUSCULAR VOLUME 95.6 fl (80.0-96.0); MONO % 10.6 % (2.0-8.0); NEUTROPHILS # 5.8 10^3/uL (1.5-8.5); PLATELET COUNT, AUTOMATED 248 10^3/uL (150-450); RED BLOOD COUNT 4.59 10^6/uL (4.30-6.10); WHITE BLOOD COUNT 9.2 10^3/uL (4.0-10.0)
[2024-10-07 15:13] LABS: ERYTHROCYTE SEDIMENTATION RATE 15 mm/hr (0-20)
[2024-10-07 15:26] LABS: C REACTIVE PROTEIN QUANTITATIV < 0.50 MG/DL (<1.0)
[2024-10-07 15:27] LABS: ALBUMIN 3.5 G/DL (3.2-5.2); ALKALINE PHOSPHATASE 78 U/L (40-129); ALT/SGPT 21 U/L (7.0-40); AST/SGOT 18 U/L (<34); BILIRUBIN,TOTAL 0.9 MG/DL (0.3-1.2); BLOOD UREA NITROGEN 16 MG/DL (9-23); CALCIUM LEVEL 9.1 MG/DL (8.3-10.6); CARBON DIOXIDE LEVEL 27 MMOL/L (20-31); CHLORIDE LEVEL 104 MMOL/L (98-107); GLOMERULAR FILTRATION RATE > 60.0 (>42); GLUCOSE, FASTING 93 MG/DL (74-106); POTASSIUM SERUM 4.5 MMOL/L (3.5-5.1); SODIUM LEVEL 138 MMOL/L (136-145); TOTAL PROTEIN 6.6 G/DL (5.7-8.2)
== END ==
LOC: M LAB 14:16
PROVIDERS: ATTEND Internal Medicine
DX: Z79.899 Other long term (current) drug therapy (principal)

== ENCOUNTER → 2024-12-22 | Outpatient (CLI) | payer MEDICARE | LOC: M PLAIMG 09:31 | PROVIDERS: ATTEND Internal Medicine | DX: R06.09 Other forms of dyspnea (principal) ==

== ENCOUNTER → 2025-08-05 | Outpatient (REF) | payer MEDICARE | LOC: M LAB REF 17:39 | PROVIDERS: ATTEND Plastic Surgery Surgery of the Hand | DX: I78.1 Nevus, non-neoplastic (principal) ==